=== PATIENT | female | born 1945 | race Caucasian/White ===

== ENCOUNTER 2017-10-05 19:48 | Inpatient (IN) | payer MEDICARE, MEDICAID ==
--- NOTE | 2017-10-05 20:03 | ED Physician Chart ---
ED Chief Complaint/HPI - Patient Information Date Seen:: 10/05/17 Time Seen:: 19:45 Chief Complaint:: Feet Redness History of Present Illness:: onset x 3v days of increasing bilateral feet erythema, swelling, and discharge; no report of trauma, H/As, S/T, neck pain, C/P, SOB, cough, Abd. Pain, A/N/V/d/c , fever, chills, or urinary s/s; pt's last tetanus shot: < 5 years; UTD Historian:: Patient, EMS, Family Member Review:: Nurse's Note Reviewed, EMS run form Reviewed ED Review of Systems - Review of Systems General/Constitutional: No fever, No chills, No weight loss, No weakness, No diaphoresis, No edema, No loss of appetite Skin: Skin lesions, Rash, No bruising Head: No headache, No light-headedness Eyes: No loss of vision, No pain, No diplopia ENT: No earache, No nasal drainage, No sore throat, No tinnitus Neck: No neck pain, No swelling, No thyromegaly, No stiffness, No mass noted Cardio Vascular: No chest pain, No palpitations, No PND, No orthopnea, No edema Pulmonary: No SOB, No cough, No sputum, No wheezing GI: No nausea, No vomiting, No diarrhea, No pain, No melena, No hematochezia, No constipation, No hematemesis G/U: No dysuria, No frequency, No hematuria, No nacturia Forensic Engineer: No vaginal discharge, No abnormal vaginal bleed, No contraction Musculoskeletal: No bone or joint pain, No back pain, No muscle pain Endocrine: Polyuria, Polydipsia Psychiatric: No prior psych history, No depression, No anxiety, No suicidal ideation, No homicidal ideation, No auditory hallucination, No visual hallucination Hematopoietic: No bruising, No lymphadenopathy Allergic/Immuno: No urticaria, No angioedema Neurological: No syncope, No focal symptoms, No weakness, No paresthesia, No headache, No seizure, No dizziness, No confusion, No vertigo ED Past Medical History - Past Medical History Obtainable: Yes Past Medical History: HTN, DM, CAD, Dyslipidemia, ESRD Family History: Diabetes Melitus, HTN Social History: Non Smoker, No Alcohol, No Drug Use, Surgical History: CABG Psychiatricy History: None Medication: Reviewed Family Medical History - Family Member Mother History Unknown: Yes ED Physical Exam - Physical Examination General/Constitutional: Awake, Well-developed, well-nourished, Alert, No distress, GCS 15, Non-toxic appearing, Ambulatory Head: Atraumatic Eyes: Lids, conjuctiva normal, PERRL, EOMI Skin: Nl inspection, No rash, No skin lesions, No ecchymosis, Well hydrated, No lymphadenopathy Other Skin comments:: Bilatera; Feet/Toe Cellulitis with multiple wounds ENMT: External ears, nose nl, TM canals nl, Nasal exam nl, Lips, teeth, gums nl , Oropharynx nl, Tonsils nl Neck: Nontender, Full ROM w/o pain, No JVD, No nuchal rigidity, No bruit, No mass, No stridor Respiratory: Nl effort/Exclusion, Clear to Auscultation, No Wheeze/Rhonchi/Rales Cardio Vascular: RRR, No murmur, gallop, rubs, NL S1 S2 GI: No tenderness/rebounding/guarding, No organomegaly, No hernia, Normal BS's, Nondistended, No mass/bruits, No McBurney tenderness : No CVA tenderness Extremities: No tenderness or effusion, Full ROM, normal strength in all extremities, No edema, Normal digits & nails Neuro/Psych: Alert/oriented, DTR's symmetric, Normal sensory exam, Normal motor strength, Judgement/insight normal, Mood normal, Normal gait, No focal deficits Misc: Normal back, No paraspinal tenderness ED Labs/Radiology/EKG Results - Lab Results Comments:: Glucose: 230; Na+: 132; Cr: 3.0; U/A: + Pyuria - EKG Interpretations EKG Time:: 20:37 Rate & Rhythm: 51; SB Comments:: RBBB; non-specific st-t changes ED Septic Shock - . Is Septic Shock (SBP<90, OR Lactate>4 mmol\L) present?: No ED Reassessment (Disposition) - Reassessment Reassessment Condition:: Improved - Diagnosis Diagnosis:: Dx: ESRD; DM; Hyponatremia; Hyperglycemia; UTI; Sepsis; Feet Wounds and Cellulitis; Anemia - Aftercare/Follow up Instructions Aftercare/Follow-Up Instructions:: Counseled pt regarding lab results/diagnosis & need follow up, Counseled pt & family regarding lab results/diagnosis & need follow up - Patient Disposition Discharge/Transfer:: Acute Care w/in this hosp Accepting Physician:: Dr. Lowery Time Called:: [id number] Time Responded:: 21:30 Admitted to:: Telemetry Spoke to:: Dr. Lowery Admitting Medical Physician:: Dr. lowery Condition at Disposition:: Stable, Improved
[2017-10-05] MEDS ORDERED: cefTRIAXone 1 GM in Sodium Chloride 0.9% 50 ML IV ONE (20:05)
[2017-10-05 20:29] LABS: URINE MICROSCOPIC INDICATED? YES; URINE SOURCE MIDSTREAM
[2017-10-05 20:31] LABS: % BASOPHILS 0.4 % (0.0-2.0); % EOSINOPHILS 3.5 % (0.0-5.0); % LYMPHOCYTES 12.9 % (20.0-50.0); % MONOCYTES 11.8 % (2.0-10.0); % NEUTROPHILS 71.4 % (40.0-80.0); EOSINOPHILE ABSOLUTE 0.2 Th/cmm (0.1-0.4); HEMATOCRIT 32.2 % (41.0-60); HEMOGLOBIN 10.8 gm/dL (12-16); LYMPHOCYTE ABSOLUTE 0.6 Th/cmm (1.5-3.0); MEAN CORPUSCULAR HEMOGLOBIN 35.9 pg (27.0-31.0); MEAN CORPUSCULAR HGB CONC 33.4 pg (28.0-36.0); MEAN PLATELET VOLUME 7.4 fl; MONOCYTE ABSOLUTE 0.5 Th/cmm (0.3-1.0); NEUTROPHILE ABSOLUTE 3.3 Th/cmm (1.8-8.0); PLATELET COUNT 252 Th/cmm (150-400); RED BLOOD COUNT 2.99 Mil/cmm (3.80-5.20); WHITE BLOOD COUNT 4.6 Th/cmm (4.8-10.8)
[2017-10-05 20:43] LABS: INR 0.92 (0.5-1.4); PROTHROMBIN TIME (TEST) 9.6 SECONDS (9.5-11.5)
[2017-10-05 20:47] LABS: URINE BILIRUBIN NEGATIVE (NEGATIVE); URINE BLOOD TRACE (NEGATIVE); URINE GLUCOSE (UA) 100 mg/dL (NEGATIVE); URINE KETONE TRACE mg/dL (NEGATIVE); URINE LEUKOCYTE ESTERASE TRACE (NEGATIVE); URINE NITRATE NEGATIVE (NEGATIVE); URINE PH 8.5 (4.6 - 8.0); URINE PROTEIN 100 mg/dL (NEGATIVE); URINE UROBILINOGEN 0.2 E.U./dL (0.2 - 1.0)
[2017-10-05 20:48] LABS: URINE CLARITY CLEAR (CLEAR); URINE COLOR YELLOW
[2017-10-05 20:49] LABS: TROP I 0.04 ng/mL (0.01-0.05)
[2017-10-05 20:51] LABS: ALB/GLOB RATIO 1.3 (1.0-1.8); ALBUMIN 3.8 gm/dL (3.7-5.3); ALKALINE PHOSPHATASE 57 U/L (34-104); ANION GAP 10.4 (7.0-16.0); BILIRUBIN,TOTAL 0.6 mg/dL (0.3-1.0); BUN - UREA NITROGEN 17 mg/dL (7-25); CALCIUM SERUM 8.8 mg/dL (8.6-10.3); CARBON DIOXIDE 31.5 mEq/L (21.0-31.0); CHLORIDE 94 mEq/L (98-107); CREATININE KINASE 51 U/L (30-223); GLUCOSE 230 mg/dL (70-105); POTASSIUM SERUM 3.9 mEq/L (3.5-5.1); SGOT 24 U/L (13-39); SGPT/ALT 17 U/L (7-52); SODIUM SERUM 132 mEq/L (136-145); TOTAL PROTEIN,SERUM 6.8 gm/dL (6.0-8.3)
[2017-10-05 20:53] LABS: URINE BACTERIA NONE SEEN /hpf (NONE SEEN); URINE EPITHELIAL CELLS NONE SEEN /lpf (FEW); URINE RBC 0-2 /hpf (0-5)
[2017-10-05 21:13] LABS: MEAN CELL VOLUME 107.6 fl (81-100)
[2017-10-05] MEDS ORDERED: guaiFENesin 200 MG/10 ML UDC PO PRN (21:43)
[2017-10-05] MEDS ORDERED: Ipratropium Neb 0.5 mg/2.5 mL UD HHN PRN (21:43)
[2017-10-05] MEDS ORDERED: Albuterol Nebulizer 2.5mg/3mL HHN PRN (21:43)
[2017-10-06] MEDS ORDERED: Piperacillin Sodium/Tazobact 2.25 gm Vial IV ONE (05:10)
[2017-10-06 05:52] LABS: HEMATOCRIT 30.5 % (41.0-60); HEMOGLOBIN 10.1 gm/dL (12-16); MEAN CORPUSCULAR HEMOGLOBIN 35.3 pg (27.0-31.0); MEAN CORPUSCULAR HGB CONC 32.9 pg (28.0-36.0); MEAN PLATELET VOLUME 7.3 fl; PLATELET COUNT 231 Th/cmm (150-400); RED BLOOD COUNT 2.85 Mil/cmm (3.80-5.20); RED CELL DISTRIBUTION WIDTH 14.7 % (11.5-20.0); WHITE BLOOD COUNT 4.3 Th/cmm (4.8-10.8)
[2017-10-06 05:53] LABS: MANUAL DIFF REQUIRED? YES
[2017-10-06 06:23] LABS: MEAN CELL VOLUME 107.1 fl (81-100)
[2017-10-06] MEDS ORDERED: INSULIN ASPART, RECOMBINANT 100 UNITS/ML SUBQ SCH (07:30)
--- NOTE | 2017-10-06 07:51 | Diagnostic Imaging Report ---
Portable chest x-ray HISTORY: Pain The heart is enlarged. No focal pulmonary processes. Surgical suture material noted over the mid chest. IMPRESSION: 1. No acute focal pulmonary processes 2. Cardiomegaly 3. Surgical changes
[2017-10-06] MEDS ORDERED: Non-Formulary Item 1 EA (Metoprolol Succinate [Metoprolol Succinate] 25 MG) PO SCH (09:00)
[2017-10-06 09:49] LABS: TOTAL CELLS COUNTED 100
[2017-10-06 09:50] LABS: BAND NEUTROPHILE 14 % (0-10); EOSINOPHIL 1 % (0-5); LYMPHOCYTE 17 % (20-50); MONOCYTE 8 % (2-10); NEUTROPHILS 60 % (40-80); PLATELET ESTIMATE ADEQUATE (NORMAL)
[2017-10-06] MEDS: INSULIN ASPART SLIDING SCALE 100 UNITS/ML UNIT SUBQ SCH ×4 (12:23→22:18)
[2017-10-06] MEDS: Insulin Detemir 100 units/mL 10mL Vial SUBQ SCH (12:24)
--- NOTE | 2017-10-06 13:30 | Internal Medicine Prog Note ---
Internal Medicine Subjective - Subjective Service Date: 10/06/17 ([id number] [facility] dictated) Internal Medicine Objective - Results Result Diagrams: 10/06/17 05:39 10/05/17 20:20 Recent Labs: Laboratory Last Values WBC 4.3 Th/cmm (4.8-10.8) L 10/06/17 05:39 RBC 2.85 Mil/cmm (3.80-5.20) L 10/06/17 05:39 Hgb 10.1 gm/dL (12-16) L 10/06/17 05:39 Hct 30.5 % (41.0-60) L 10/06/17 05:39 MCV 107.1 fl (81-100) H 10/06/17 05:39 MCH 35.3 pg (27.0-31.0) H 10/06/17 05:39 MCHC Differential 32.9 pg (28.0-36.0) 10/06/17 05:39 RDW 14.7 % (11.5-20.0) 10/06/17 05:39 Plt Count 231 Th/cmm (150-400) 10/06/17 05:39 MPV 7.3 fl 10/06/17 05:39 Neutrophils % 71.4 % (40.0-80.0) 10/05/17 20:20 Band Neutrophils % 14 % (0-10) H 10/06/17 05:39 Lymphocytes % 12.9 % (20.0-50.0) L 10/05/17 20:20 Monocytes % 11.8 % (2.0-10.0) H 10/05/17 20:20 Eosinophils % 3.5 % (0.0-5.0) 10/05/17 20:20 Basophils % 0.4 % (0.0-2.0) 10/05/17 20:20 Neutrophils (Manual) 60 % (40-80) 10/06/17 05:39 Lymphocytes 17 % (20-50) L 10/06/17 05:39 Monocytes 8 % (2-10) 10/06/17 05:39 Eosinophils 1 % (0-5) 10/06/17 05:39 Platelet Estimate ADEQUATE (NORMAL) 10/06/17 05:39 Macrocytosis 1+ 10/06/17 05:39 ESR 49 mm/hr (0-30) H 10/06/17 05:39 PT 9.6 SECONDS (9.5-11.5) 10/05/17 20:20 INR 0.92 (0.5-1.4) 10/05/17 20:20 PTT (Actin FS) 22.5 SECONDS (26.0-38.0) L 10/05/17 20:20 Sodium 132 mEq/L (136-145) L 10/05/17 20:20 Potassium 3.9 mEq/L (3.5-5.1) 10/05/17 20:20 Chloride 94 mEq/L (98-107) L 10/05/17 20:20 Carbon Dioxide 31.5 mEq/L (21.0-31.0) H 10/05/17 20:20 Anion Gap 10.4 (7.0-16.0) 10/05/17 20:20 BUN 17 mg/dL (7-25) 10/05/17 20:20 Creatinine 3.0 mg/dL (0.6-1.2) H 10/05/17 20:20 Est GFR ( Amer) TNP 10/05/17 20:20 Est GFR (Non-Af Amer) TNP 10/05/17 20:20 BUN/Creatinine Ratio 5.7 10/05/17 20:20 Glucose 230 mg/dL (70-105) H 10/05/17 20:20 POC Glucose 202 MG/DL (70 - 105) H 10/06/17 12:05 Whole Bld Lactic Acid 0.85 mmol/L (0.60-1.99) 10/05/17 20:20 Calcium 8.8 mg/dL (8.6-10.3) 10/05/17 20:20 Total Bilirubin 0.6 mg/dL (0.3-1.0) 10/05/17 20:20 AST 24 U/L (13-39) 10/05/17 20:20 ALT 17 U/L (7-52) 10/05/17 20:20 Alkaline Phosphatase 57 U/L (34-104) 10/05/17 20:20 Creatine Kinase 51 U/L (30-223) 10/05/17 20:20 Troponin I 0.04 ng/mL (0.01-0.05) 10/05/17 20:20 Total Protein 6.8 gm/dL (6.0-8.3) 10/05/17 20:20 Albumin 3.8 gm/dL (3.7-5.3) 10/05/17 20:20 Globulin 3.0 gm/dL 10/05/17 20:20 Albumin/Globulin Ratio 1.3 (1.0-1.8) 10/05/17 20:20 Urine Source MIDSTREAM 10/05/17 20:20 Urine Color YELLOW 10/05/17 20:20 Urine Clarity CLEAR (CLEAR) 10/05/17 20:20 Urine pH 8.5 (4.6 - 8.0) 10/05/17 20:20 Ur Specific [place] 1.015 (1.005-1.030) 10/05/17 20:20 Urine Protein 100 mg/dL (NEGATIVE) H 10/05/17 20:20 Urine Glucose (UA) 100 mg/dL (NEGATIVE) H 10/05/17 20:20 Urine Ketones TRACE mg/dL (NEGATIVE) 10/05/17 20:20 Urine Blood TRACE (NEGATIVE) 10/05/17 20:20 Urine Nitrate NEGATIVE (NEGATIVE) 10/05/17 20:20 Urine Bilirubin NEGATIVE (NEGATIVE) 10/05/17 20:20 Urine Urobilinogen 0.2 E.U./dL (0.2 - 1.0) 10/05/17 20:20 Ur Leukocyte Esterase TRACE (NEGATIVE) H 10/05/17 20:20 Urine RBC 0-2 /hpf (0-5) 10/05/17 20:20 Urine WBC 2-5 /hpf (0-5) 10/05/17 20:20 Ur Epithelial Cells NONE SEEN /lpf (FEW) 10/05/17 20:20 Urine Bacteria NONE SEEN /hpf (NONE SEEN) 10/05/17 20:20 - Physical Exam Vitals and I&O: Vital Signs Temp 97.5 F 10/06/17 12:12 Pulse 76 10/06/17 12:12 Resp 17 10/06/17 12:12 BP 161/57 10/06/17 12:12 Pulse Ox 97 10/06/17 12:12 Intake & Output 10/05/17 10/06/17 10/06/17 18:59 06:59 18:59 Intake Total 50 Balance 50 Intake: Intake, IV Amount 50 Piperacillin Sodium/ 50 Tazobact 2.25 gm In Sodium Chloride 0.9% 50 ml @ 100 mls/hr IV Q8HR [facility] Rx#:[id number] Active Medications: Current Medications Acetaminophen (Tylenol) 650 mg PO Q4H PRN PRN Reason: Pain Or Fever above 101 Stop: 12/04/17 21:42 Acetaminophen/Hydrocodone Bitart ([place] 5mg/325mg) 1 tab PO Q4H PRN PRN Reason: Pain (Severe) Stop: 12/04/17 21:42 Albuterol Sulfate (Albuterol 2.5mg/3ml Neb Ud) 2.5 mg HHN Q2HRT PRN PRN Reason: Shortness of Breath or Wheeze Stop: 12/04/17 21:42 Amiodarone HCl (Cordarone) 200 mg PO DAILY [facility] Stop: 12/05/17 08:59 Last Admin: 10/06/17 09:05 Dose: 200 mg Aspirin (Ecotrin) 81 mg PO DAILY [facility] Stop: 12/05/17 08:59 Last Admin: 10/06/17 09:05 Dose: 81 mg Bisacodyl (Dulcolax 10 Mg Supp) 10 mg RC DAILY PRN PRN Reason: Constipation Stop: 12/05/17 13:03 Clopidogrel Bisulfate (Plavix) 75 mg PO DAILY [facility] Stop: 12/05/17 08:59 Last Admin: 10/06/17 09:05 Dose: 75 mg Docusate Sodium (Colace) 250 mg PO BID [facility] Stop: 12/05/17 16:59 Guaifenesin (Robitussin) 200 mg PO Q4HR PRN PRN Reason: Cough or Congestion Stop: 12/04/17 21:42 Piperacillin Sod/Tazobactam (Sod 2.25 gm/ Sodium Chloride) 50 mls @ 100 mls/hr IV Q8HR [facility] Stop: 12/05/17 04:59 Last Admin: 10/06/17 12:47 Dose: 100 mls/hr Insulin Aspart (Novolog Insulin Sliding Scale) 0 units SUBQ ACHS [facility] PRN Reason: Protocol Stop: 12/05/17 07:29 Last Admin: 10/06/17 12:24 Dose: 4 units Insulin Detemir (Levemir Insulin) 8 units SUBQ DAILY [facility] PRN Reason: Protocol Stop: 12/05/17 08:59 Last Admin: 10/06/17 12:24 Dose: 8 units Ipratropium Moore (Atrovent Neb 0.5mg/2.5ml) 0.5 mg HHN Q2HRT PRN PRN Reason: Shortness of Breath or Wheeze Stop: 12/04/17 21:42 Metoprolol Tartrate (Lopressor) 25 mg PO BID KHANG Stop: 12/05/17 08:59 Last Admin: 10/06/17 09:05 Dose: 25 mg Nitroglycerin (Nitrostat) 0.4 mg SL Q5MIN PRN PRN Reason: Chest Pain Stop: 12/04/17 21:42 Ondansetron HCl (Zofran) 4 mg IV Q8H PRN PRN Reason: Nausea / Vomiting Stop: 12/04/17 21:42 Zolpidem Tartrate (Ambien) 5 mg PO HS PRN PRN Reason: Insomnia Stop: 12/04/17 21:42 Last Admin: 10/06/17 03:25 Dose: 5 mg Internal Medicine Assmt/Plan - Assessment Assessment: bilateral lower ext cellulitis htn esrd dm2
--- NOTE | 2017-10-06 13:46 | History & Physical ---
ADMIT DATE: 10/06/2017 CHIEF COMPLAINT: Bilateral foot redness. HISTORY OF PRESENT ILLNESS: This is a 71-year-old female who has a 3-day history of bilateral feet redness associated with swelling. The patient denies any fevers at home. The patient also complains of pain in bilateral feet. For this reason, the patient was brought to the ER. PAST MEDICAL HISTORY: Hypertension, diabetes, CAD, dyslipidemia, ESRD. FAMILY HISTORY: Noncontributory. SOCIAL HISTORY: The patient denies any alcohol or illicit drug usage. SURGICAL HISTORY: CABG. MEDICATIONS: Please see medication reconciliation. REVIEW OF SYSTEMS: GENERAL: Denies any fevers and chills. CARDIOVASCULAR: Denies chest pain. RESPIRATORY: Denies shortness of breath. GASTROINTESTINAL: Denies nausea, vomiting, abdominal pain. GENITOURINARY: Denies increased frequency or dysuria. NEUROLOGIC: The patient is alert. All other systems are reviewed and are negative. PHYSICAL EXAMINATION: GENERAL: The patient is well-developed, well-nourished, no acute distress. VITAL SIGNS: Temperature 97.5, heart 76, blood pressure 161/57, respirations 17, O2 97%. HEENT: Head; normocephalic, atraumatic. NECK: Supple. No mass. LUNGS: Clear bilaterally. HEART: Regular rhythm. ABDOMEN: Soft, nontender. SKIN: Bilateral lower extremity noted with redness. LABORATORY DATA: WBC 4.3, H and H of and 30.5, platelet of 231. Sodium 132, potassium 3.9, chloride 94, BUN 17, creatinine 3.0. DIAGNOSTICS: The patient had a chest x-ray done and the impression is no acute focal pulmonary process cardiomegaly. ASSESSMENT: Bilateral lower extremity cellulitis, hypertension, type 2 diabetes, CAD, dyslipidemia, end-stage renal disease. PLAN: The patient to be admitted to the telemetry unit. We will get a wrapping machine operator on the case as well as his wound care. We will get a bilateral lower extremity arterial Doppler. We will get followup labs. Keep patient on empiric IV antibiotics. We will continue to follow this patient. JOB# [id number]
[2017-10-06 14:23] LABS: A1C % 8.6 % (4.0-6.0)
[2017-10-07] MEDS ORDERED: Albumin 25% 25gm/100mL 25 GM/100 ML BTL IV ONE
[2017-10-07] MEDS: Heparin Sod 1,000 Units/mL 10ml HD SCH ×2 (00:55→08:22)
[2017-10-07 06:17] LABS: ANION GAP 14.4 (7.0-16.0); BUN - UREA NITROGEN 36 mg/dL (7-25); CALCIUM SERUM 8.2 mg/dL (8.6-10.3); CARBON DIOXIDE 24.7 mEq/L (21.0-31.0); CHLORIDE 98 mEq/L (98-107); GLUCOSE 108 mg/dL (70-105); MAGNESIUM 2.6 mg/dL (1.9-2.7); POTASSIUM SERUM 4.1 mEq/L (3.5-5.1); SODIUM SERUM 133 mEq/L (136-145)
[2017-10-07 06:30] LABS: CREATININE - SERUM 4.8 mg/dL (0.6-1.2)
[2017-10-07] MEDS: INSULIN ASPART SLIDING SCALE 100 UNITS/ML UNIT SUBQ SCH ×4 (07:04→21:15)
[2017-10-07 07:50] LABS: % BASOPHILS 0.6 % (0.0-2.0); % EOSINOPHILS 4.6 % (0.0-5.0); % LYMPHOCYTES 14.5 % (20.0-50.0); % NEUTROPHILS 68.3 % (40.0-80.0); EOSINOPHILE ABSOLUTE 0.2 Th/cmm (0.1-0.4); HEMATOCRIT 30.7 % (41.0-60); HEMOGLOBIN 10.2 gm/dL (12-16); LYMPHOCYTE ABSOLUTE 0.7 Th/cmm (1.5-3.0); MEAN CORPUSCULAR HEMOGLOBIN 35.7 pg (27.0-31.0); MEAN CORPUSCULAR HGB CONC 33.2 pg (28.0-36.0); MEAN PLATELET VOLUME 7.3 fl; MONOCYTE ABSOLUTE 0.6 Th/cmm (0.3-1.0); NEUTROPHILE ABSOLUTE 3.1 Th/cmm (1.8-8.0); PLATELET COUNT 271 Th/cmm (150-400); RED BLOOD COUNT 2.86 Mil/cmm (3.80-5.20); RED CELL DISTRIBUTION WIDTH 14.4 % (11.5-20.0); WHITE BLOOD COUNT 4.6 Th/cmm (4.8-10.8)
[2017-10-07] MEDS: Insulin Detemir 100 units/mL 10mL Vial SUBQ SCH (08:30)
--- NOTE | 2017-10-07 08:42 | Diagnostic Imaging Report ---
Bilateral lower extremity Doppler arterial ultrasound exam HISTORY: Peripheral vascular disease, pain Sonographic sector images were obtained through the arterial systems of both legs. Associated Doppler data was obtained. The exam of the right leg demonstrates triphasic waveforms within the common femoral artery. Biphasic waveforms are noted within the proximal portion of the right superficial femoral artery. Triphasic waveforms are noted in the midportion of this artery. Abnormal monophasic waveforms are seen in the distal portion of the superficial femoral artery. Increased velocity also noted within the distal segment. Abnormal monophasic waveforms are also noted within the right popliteal, anterior tibial, posterior tibial, dorsalis pedis arteries. Decreased velocity noted within the right posterior tibial artery. Sonographic images demonstrate mild to severe diffuse atherosclerotic changes. No discrete occlusion. The right ankle-brachial index is normal (0.9). The exam of the left leg demonstrates triphasic waveforms within the common femoral artery. Biphasic waveforms are noted to the superficial femoral artery. Abnormal monophasic waveforms are noted with the left popliteal, anterior tibial, posterior tibial, and dorsalis pedis arteries. Abnormal decrease in velocity noted with the left posterior tibial artery. Increased velocity noted within the left anterior tibial artery. Sonographic images demonstrate moderate to severe diffuse atherosclerotic changes. No complete occlusion identified. Abnormal decreased ankle brachial index (0.78). IMPRESSION: 1. Evidence of moderate to severe diffuse atherosclerotic changes within the left leg most pronounced below the knee. No jackie occlusion. 2. Evidence of mild to severe diffuse atherosclerotic changes throughout the right leg. No jackie occlusion. If needed, a CT angiographic study may provide additional detail.
--- NOTE | 2017-10-07 09:41 | Consultation ---
DATE OF CONSULTATION: 10/06/2017 REASON FOR CONSULTATION: Electrolyte imbalance and fluid management. HISTORY OF PRESENT ILLNESS: This is a 71-year-old female with past medical history of end-stage renal disease, on hemodialysis, who came in because of the progressive erythema/pain involving bilateral toes. Three months prior to admission, the patient experienced pain in both bilateral toes. She then developed erythema which eventually spread to toes of both feet. Three days prior to admission, she noted pain to be more pronounced and persistent accompanied by a burning sensation. A few hours prior to admission, she could no longer tolerate the pain and then proceeded to the Emergency Room. White count was 4.6, ESR of 49 negative. PAST MEDICAL HISTORY: 1. End-stage renal disease, on hemodialysis. 2. Coronary artery disease. 3. Type 2 diabetes mellitus. 4. Essential hypertension. 5. Dyslipidemia. PAST SURGICAL HISTORY: 1. Status post CABG involving 4 vessels in 2014. 2. Status post creation of left AV fistula. CURRENT MEDICATIONS: She is currently on acetaminophen, albuterol, amiodarone, aspirin, bisacodyl, ceftriaxone, clonidine, clopidogrel, docusate sodium, aspart, detemir, ipratropium, metoprolol, ondansetron, zolpidem, Zosyn. ALLERGIES: No known drug allergies. SOCIAL HISTORY: Denied any history of alcohol or tobacco use. 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 FAMILY HISTORY: Presence of diabetes in one of her brothers. REVIEW OF SYSTEMS: She does have occasional weakness. No fever, no chills. Appetite had been fair. HEENT: No mention of headaches, no dizziness. Wears glasses due to poor vision. Hearing acuity has diminished due to age. CARDIORESPIRATORY: Denies any chest pain, palpitations, diaphoresis, cough, no shortness of breath. She does have a history of coronary artery disease. MUSCULOSKELETAL: Multiple joint arthralgias. GENITOURINARY: History of kidney failure, now on hemodialysis for several years. HEMATOLOGIC: Anemia of chronic kidney disease. NEUROPSYCH: No syncopal episode nor seizure activity. She has taking sensation suggestive of some form of neuropathy. PHYSICAL EXAMINATION: GENERAL: The patient is awake, verbal, in distress due to pain involving toes of both feet. HEENT: Head normocephalic, atraumatic. EYES: Extraocular muscles intact. Pupils equal, round, reactive to light and accommodates. Anicteric sclerae. Pale conjunctivae. Nose, midline nasal septum. Mouth: Dry mucosa, adequate dentition. NECK: Supple, no adenopathy, no thyromegaly, no bruits. Trachea palpated in the midline. CHEST AND CVS: S1, S2. No rub, murmur nor gallop appreciated. Point of maximal impulse fifth intercostal space, left midclavicular line. No abdominal or femoral bruits appreciated. LUNGS: Equal expansion. No use of accessory muscles. No supraclavicular retractions. Decreased breath sounds, few rhonchi, but no rales nor wheezes appreciated. BREASTS: Symmetrical, without any discharge. ABDOMEN: Mildly globular, soft. Positive for bowel sounds. No bruits either diastolic or systolic. RECTAL: The patient refused. GENITOURINARY: Normal appearing female genitalia. MUSCULOSKELETAL: No effusions present in her joints, but unable to assess her range of motion due to pain of toes involving both feet. EXTREMITIES: She has a palpable femoral, but unable to fully appreciate popliteal as well as dorsalis pedis pulses. NEUROLOGIC: The patient is alert, verbal, motor is 5/5. Cranial nerves 3-12 intact. Sensory intact. LABORATORY DATA: Revealed white count 4.3, hemoglobin 10.1, hematocrit 30.5, platelets 231, sodium 132, potassium 3.9, chloride 9 , bicarbonate 31, BUN 17, creatinine is 3, glucose 230, hemoglobin A1c 8.6, calcium 8.8, albumin 3.8. IMPRESSION: 1. End-stage renal disease, on hemodialysis. 2. Bilateral ischemic toes with ongoing cellulitis. 3. Coronary artery disease, status post CABG. 4. Type 2 diabetes mellitus. 5. Essential hypertension. 6. Dyslipidemia. PLAN: 1. Hemodialysis in a.m. 2. Continue on with Rocephin for now. 3. Follow up arterial duplex scan. 4. Vancomycin x1. Thank you, Dr. Lowery, for this consult. We will follow the patient closely with you. JOB# [id number]
--- NOTE | 2017-10-07 13:30 | General Progress Note ---
Subjective - Review of Systems Service Date: 10/07/17 Subjective: alert, less foot pain Objective - Results Result Diagrams: 10/07/17 07:37 10/07/17 05:51 Recent Labs: Laboratory Last Values WBC 4.6 Th/cmm (4.8-10.8) L 10/07/17 07:37 RBC 2.86 Mil/cmm (3.80-5.20) L 10/07/17 07:37 Hgb 10.2 gm/dL (12-16) L 10/07/17 07:37 Hct 30.7 % (41.0-60) L 10/07/17 07:37 MCV 107.1 fl (81-100) H 10/06/17 05:39 MCH 35.7 pg (27.0-31.0) H 10/07/17 07:37 MCHC Differential 33.2 pg (28.0-36.0) 10/07/17 07:37 RDW 14.4 % (11.5-20.0) 10/07/17 07:37 Plt Count 271 Th/cmm (150-400) 10/07/17 07:37 MPV 7.3 fl 10/07/17 07:37 Neutrophils % 68.3 % (40.0-80.0) 10/07/17 07:37 Band Neutrophils % 14 % (0-10) H 10/06/17 05:39 Lymphocytes % 14.5 % (20.0-50.0) L 10/07/17 07:37 Monocytes % 12.0 % (2.0-10.0) H 10/07/17 07:37 Eosinophils % 4.6 % (0.0-5.0) 10/07/17 07:37 Basophils % 0.6 % (0.0-2.0) 10/07/17 07:37 Neutrophils (Manual) 60 % (40-80) 10/06/17 05:39 Lymphocytes 17 % (20-50) L 10/06/17 05:39 Monocytes 8 % (2-10) 10/06/17 05:39 Eosinophils 1 % (0-5) 10/06/17 05:39 Platelet Estimate ADEQUATE (NORMAL) 10/06/17 05:39 Macrocytosis 1+ 10/06/17 05:39 ESR 49 mm/hr (0-30) H 10/06/17 05:39 PT 9.6 SECONDS (9.5-11.5) 10/05/17 20:20 INR 0.92 (0.5-1.4) 10/05/17 20:20 PTT (Actin FS) 22.5 SECONDS (26.0-38.0) L 10/05/17 20:20 Sodium 133 mEq/L (136-145) L 10/07/17 05:51 Potassium 4.1 mEq/L (3.5-5.1) 10/07/17 05:51 Chloride 98 mEq/L (98-107) 10/07/17 05:51 Carbon Dioxide 24.7 mEq/L (21.0-31.0) 10/07/17 05:51 Anion Gap 14.4 (7.0-16.0) 10/07/17 05:51 BUN 36 mg/dL (7-25) H 10/07/17 05:51 Creatinine 4.8 mg/dL (0.6-1.2) H* 10/07/17 05:51 Est GFR ( Amer) TNP 10/07/17 05:51 Est GFR (Non-Af Amer) TNP 10/07/17 05:51 BUN/Creatinine Ratio 7.5 10/07/17 05:51 Glucose 108 mg/dL (70-105) H 10/07/17 05:51 POC Glucose 97 MG/DL (70 - 105) 10/07/17 07:01 Hemoglobin A1c % 8.6 % (4.0-6.0) H 10/05/17 20:20 Whole Bld Lactic Acid 0.85 mmol/L (0.60-1.99) 10/05/17 20:20 Calcium 8.2 mg/dL (8.6-10.3) L 10/07/17 05:51 Magnesium 2.6 mg/dL (1.9-2.7) 10/07/17 05:51 Total Bilirubin 0.6 mg/dL (0.3-1.0) 10/05/17 20:20 AST 24 U/L (13-39) 10/05/17 20:20 ALT 17 U/L (7-52) 10/05/17 20:20 Alkaline Phosphatase 57 U/L (34-104) 10/05/17 20:20 Creatine Kinase 51 U/L (30-223) 10/05/17 20:20 Troponin I 0.04 ng/mL (0.01-0.05) 10/05/17 20:20 B-Natriuretic Peptide 733.0 pg/mL (5.0-100.0) H 10/07/17 05:51 Total Protein 6.8 gm/dL (6.0-8.3) 10/05/17 20:20 Albumin 3.8 gm/dL (3.7-5.3) 10/05/17 20:20 Globulin 3.0 gm/dL 10/05/17 20:20 Albumin/Globulin Ratio 1.3 (1.0-1.8) 10/05/17 20:20 TSH 1.32 uIU/ml (0.34-5.60) 10/06/17 05:39 Urine Source MIDSTREAM 10/05/17 20:20 Urine Color YELLOW 10/05/17 20:20 Urine Clarity CLEAR (CLEAR) 10/05/17 20:20 Urine pH 8.5 (4.6 - 8.0) 10/05/17 20:20 Ur Specific [place] 1.015 (1.005-1.030) 10/05/17 20:20 Urine Protein 100 mg/dL (NEGATIVE) H 10/05/17 20:20 Urine Glucose (UA) 100 mg/dL (NEGATIVE) H 10/05/17 20:20 Urine Ketones TRACE mg/dL (NEGATIVE) 10/05/17 20:20 Urine Blood TRACE (NEGATIVE) 10/05/17 20:20 Urine Nitrate NEGATIVE (NEGATIVE) 10/05/17 20:20 Urine Bilirubin NEGATIVE (NEGATIVE) 10/05/17 20:20 Urine Urobilinogen 0.2 E.U./dL (0.2 - 1.0) 10/05/17 20:20 Ur Leukocyte Esterase TRACE (NEGATIVE) H 10/05/17 20:20 Urine RBC 0-2 /hpf (0-5) 10/05/17 20:20 Urine WBC 2-5 /hpf (0-5) 10/05/17 20:20 Ur Epithelial Cells NONE SEEN /lpf (FEW) 10/05/17 20:20 Urine Bacteria NONE SEEN /hpf (NONE SEEN) 10/05/17 20:20 - Physical Exam Vitals and I&O: Vital Signs Temp 97.6 F 10/07/17 09:05 Pulse 47 10/07/17 09:05 Resp 17 10/07/17 09:05 BP 164/60 10/07/17 09:05 Pulse Ox 98 10/07/17 09:05 Intake & Output 10/06/17 10/07/17 10/07/17 18:59 06:59 18:59 Intake Total 50 400 Balance 50 400 Weight (lbs) 76.657 kg Intake: Intake, IV Amount 50 200 Piperacillin Sodium/ 50 100 Tazobact 2.25 gm In Sodium Chloride 0.9% 50 ml @ 100 mls/hr IV Q8HR [facility] Rx#:[id number] Oral 200 Other: # Voids 2 # Bowel Movements 2 Stool Characteristics Soft Soft Active Medications: Current Medications Acetaminophen (Tylenol) 650 mg PO Q4H PRN PRN Reason: Pain Or Fever above 101 Stop: 12/04/17 21:42 Acetaminophen/Hydrocodone Bitart ([place] 5mg/325mg) 1 tab PO Q4H PRN PRN Reason: Pain (Severe) Stop: 12/04/17 21:42 Albuterol Sulfate (Albuterol 2.5mg/3ml Neb Ud) 2.5 mg HHN Q2HRT PRN PRN Reason: Shortness of Breath or Wheeze Stop: 12/04/17 21:42 Amiodarone HCl (Cordarone) 200 mg PO DAILY [facility] Stop: 12/05/17 08:59 Last Admin: 10/07/17 08:30 Dose: 200 mg Aspirin (Ecotrin) 81 mg PO DAILY [facility] Stop: 12/05/17 08:59 Last Admin: 10/07/17 08:30 Dose: 81 mg Bisacodyl (Dulcolax 10 Mg Supp) 10 mg RC DAILY PRN PRN Reason: Constipation Stop: 12/05/17 13:03 Bisacodyl (Dulcolax 5 Mg Ec Tab) 10 mg PO PRN PRN PRN Reason: Constipation Stop: 12/05/17 14:57 Clopidogrel Bisulfate (Plavix) 75 mg PO DAILY [facility] Stop: 12/05/17 08:59 Last Admin: 10/07/17 08:30 Dose: 75 mg Docusate Sodium (Colace) 250 mg PO BID [facility] Stop: 12/05/17 16:59 Last Admin: 10/07/17 08:30 Dose: 250 mg Guaifenesin (Robitussin) 200 mg PO Q4HR PRN PRN Reason: Cough or Congestion Stop: 12/04/17 21:42 Heparin Sodium (Porcine) (Heparin Sodium) 0 units HD UD [facility] Stop: 10/08/17 00:00 Last Admin: 10/07/17 08:22 Dose: Not Given Piperacillin Sod/Tazobactam (Sod 2.25 gm/ Sodium Chloride) 50 mls @ 100 mls/hr IV Q8HR [facility] Stop: 12/05/17 04:59 Last Admin: 10/07/17 12:18 Dose: 100 mls/hr Insulin Aspart (Novolog Insulin Sliding Scale) 0 units SUBQ ACHS [facility] PRN Reason: Protocol Stop: 12/05/17 07:29 Last Admin: 10/07/17 11:54 Dose: 2 units Insulin Detemir (Levemir Insulin) 8 units SUBQ DAILY [facility] PRN Reason: Protocol Stop: 12/05/17 08:59 Last Admin: 10/07/17 08:30 Dose: 8 units Ipratropium [place] (Atrovent Neb 0.5mg/2.5ml) 0.5 mg HHN Q2HRT PRN PRN Reason: Shortness of Breath or Wheeze Stop: 12/04/17 21:42 Metoprolol Tartrate (Lopressor) 25 mg PO BID [facility] Stop: 12/05/17 08:59 Last Admin: 10/07/17 08:31 Dose: 25 mg Nitroglycerin (Nitrostat) 0.4 mg SL Q5MIN PRN PRN Reason: Chest Pain Stop: 12/04/17 21:42 Ondansetron HCl (Zofran) 4 mg IV Q8H PRN PRN Reason: Nausea / Vomiting Stop: 12/04/17 21:42 Zolpidem Tartrate (Ambien) 5 mg PO HS PRN PRN Reason: Insomnia Stop: 12/04/17 21:42 Last Admin: 10/06/17 03:25 Dose: 5 mg General: Alert, Mild distress HEENT: Atraumatic, PERRLA, EOMI, Mucous membr. moist/pink Neck: Supple, +2 carotid pulse wo bruit Cardiovascular: Regular rate, Normal S1, Normal S2 Lungs: Clear to auscultation Abdomen: Bowel sounds, Soft Extremities: Tender (erythema, tender , warm), Other, no Edema Neurological: Sensation intact Skin: no Rash Psych/Mental Status: Mood NL Assessment/Plan - Assessment Assessment: ESRD On HD B/L Ischemic Toes w/ Cellulitis CAD S/P CABG Type 2 DM Ess Htn Dyslipidemia Severe PAD - Plan Plan: Lab - Result Diagrams 10/07/17 07:37 10/07/17 05:51 Current Medications Acetaminophen (Tylenol) 650 mg PO Q4H PRN PRN Reason: Pain Or Fever above 101 Stop: 12/04/17 21:42 Acetaminophen/Hydrocodone Bitart ([place] 5mg/325mg) 1 tab PO Q4H PRN PRN Reason: Pain (Severe) Stop: 12/04/17 21:42 Albuterol Sulfate (Albuterol 2.5mg/3ml Neb Ud) 2.5 mg HHN Q2HRT PRN PRN Reason: Shortness of Breath or Wheeze Stop: 12/04/17 21:42 Amiodarone HCl (Cordarone) 200 mg PO DAILY [facility] Stop: 12/05/17 08:59 Last Admin: 10/07/17 08:30 Dose: 200 mg Aspirin (Ecotrin) 81 mg PO DAILY [facility] Stop: 12/05/17 08:59 Last Admin: 10/07/17 08:30 Dose: 81 mg Bisacodyl (Dulcolax 10 Mg Supp) 10 mg RC DAILY PRN PRN Reason: Constipation Stop: 12/05/17 13:03 Bisacodyl (Dulcolax 5 Mg Ec Tab) 10 mg PO PRN PRN PRN Reason: Constipation Stop: 12/05/17 14:57 Clopidogrel Bisulfate (Plavix) 75 mg PO DAILY [facility] Stop: 12/05/17 08:59 Last Admin: 10/07/17 08:30 Dose: 75 mg Docusate Sodium (Colace) 250 mg PO BID [facility] Stop: 12/05/17 16:59 Last Admin: 10/07/17 08:30 Dose: 250 mg Guaifenesin (Robitussin) 200 mg PO Q4HR PRN PRN Reason: Cough or Congestion Stop: 12/04/17 21:42 Heparin Sodium (Porcine) (Heparin Sodium) 0 units HD UD [facility] Stop: 10/08/17 00:00 Last Admin: 10/07/17 08:22 Dose: Not Given Piperacillin Sod/Tazobactam (Sod 2.25 gm/ Sodium Chloride) 50 mls @ 100 mls/hr IV Q8HR [facility] Stop: 12/05/17 04:59 Last Admin: 10/07/17 12:18 Dose: 100 mls/hr Insulin Aspart (Novolog Insulin Sliding Scale) 0 units SUBQ ACHS [facility] PRN Reason: Protocol Stop: 12/05/17 07:29 Last Admin: 10/07/17 11:54 Dose: 2 units Insulin Detemir (Levemir Insulin) 8 units SUBQ DAILY [facility] PRN Reason: Protocol Stop: 12/05/17 08:59 Last Admin: 10/07/17 08:30 Dose: 8 units Ipratropium [place] (Atrovent Neb 0.5mg/2.5ml) 0.5 mg HHN Q2HRT PRN PRN Reason: Shortness of Breath or Wheeze Stop: 12/04/17 21:42 Metoprolol Tartrate (Lopressor) 25 mg PO BID [facility] Stop: 12/05/17 08:59 Last Admin: 10/07/17 08:31 Dose: 25 mg Nitroglycerin (Nitrostat) 0.4 mg SL Q5MIN PRN PRN Reason: Chest Pain Stop: 12/04/17 21:42 Ondansetron HCl (Zofran) 4 mg IV Q8H PRN PRN Reason: Nausea / Vomiting Stop: 12/04/17 21:42 Zolpidem Tartrate (Ambien) 5 mg PO HS PRN PRN Reason: Insomnia Stop: 12/04/17 21:42 Last Admin: 10/06/17 03:25 Dose: 5 mg scheduled for HD today B/L foot better still w/ discoloration, tenderness on plapation WBC stable @ 4 Nutritional Asmnt/Malnutr-PDOC - Dietary Evaluation Malnutrition Findings (Please click <Entered> for more info): Nutritional Asmnt/Malnutrition Start: 10/06/17 17: 58 Text: Status: Complete Freq: Document 10/06/17 17:58 JESENIA (Rec: 10/06/17 18:15 [email or web address]) Nutritional Asmnt/Malnutrition Patient General Information Nutritional Screening High Risk Diagnosis bilateral lower extremities cellulitis Pertinent Medical Hx/Surgical Hx HTN, DM, CAD, dyslipidemia, ESRD, CABG Subjective Information Pt seen lying in bed at time of visit, awake and alert. Pt reported appetite OK, ate about 50% of lunch today. She likes hot cereal, fruits and veggies, tea instead of coffee , eats few meat. per notes, Pt receives dialysis MWF. Current Diet Order/ Nutrition Support renal Pertinent Medications colace, novolog, levemir, piperacillin Pertinent Labs 10/05 Na 132, K 3.9, Cl 94, BUN 17, Cr 3.0, Glucose 230, A1c 8.6 10/06 POC 116-202 Nutritional Hx/Data Height 1.57 m Height (Calculated Centimeters) 157.5 Current Weight (lbs) 74.843 kg Weight (Calculated Kilograms) 74.8 Weight (Calculated Grams) 60834.7 [place] Body Weight 110 % [place] Body Weight 150 Body Mass Index (BMI) 30.2 Weight Status Obese GI Symptoms GI Symptoms None Last BM no record Difficult in: None Skin Integrity/Comment: bilateral lower extremities cellulitis/redness, toes red Estimated Nutritional Goals BEE in Kcals: Adj wt of IBW Calories/Kcals/Kg 30-35 Kcals Calculated 1682-1752 Protein: Adj wt of IBW Protein g/k.2-1.4 pt on dialysis Protein Calculated 67-78 Fluid: ml [id number] or per MD order Nutritional Problem 2. Problem Problem increased nutrition needs ( protein) Etiology increased protein losses Signs/Symptoms: pt on dialysis 1. Problem Problem altered nutrition related lab values Etiology hx of DM Signs/Symptoms: Glucose 230, A1c 8.6 POC 116-202 Malnutrition Alert Protein-Calorie Malnutrition N/A Is there a minimum of two criteria No selected? Query Text:Check all the applicable criteria. A minimum of two criteria are recommended for diagnosis of either severe or non-severe malnutrition. Intervention/Recommendation Comments 1. Recommend CCHO-60gm Renal diet for optimal glycemic control. 2. If PO intake continue <75%, will consider Novasource Renal to increase protein intake 3. Monitor PO intake, wt, labs and skin integrity 4. F/U as high risk in 2-3 days, 10/08-10/09 Expected Outcomes/Goals Expected Outcomes/Goals 1. PO intake to meet at least 75% of nutritional needs. 2. Wt stability, skin to remain intact, labs to improve
--- NOTE | 2017-10-07 14:39 | Internal Medicine Prog Note ---
Internal Medicine Subjective - Subjective Service Date: 10/07/17 (undergoing hd ) Patient seen and examined:: with staff Patient is:: awake, verbal Per staff patient has:: tolerating meds Internal Medicine Objective - Results Result Diagrams: 10/07/17 07:37 10/07/17 05:51 Recent Labs: Laboratory Last Values WBC 4.6 Th/cmm (4.8-10.8) L 10/07/17 07:37 RBC 2.86 Mil/cmm (3.80-5.20) L 10/07/17 07:37 Hgb 10.2 gm/dL (12-16) L 10/07/17 07:37 Hct 30.7 % (41.0-60) L 10/07/17 07:37 MCV 107.1 fl (81-100) H 10/06/17 05:39 MCH 35.7 pg (27.0-31.0) H 10/07/17 07:37 MCHC Differential 33.2 pg (28.0-36.0) 10/07/17 07:37 RDW 14.4 % (11.5-20.0) 10/07/17 07:37 Plt Count 271 Th/cmm (150-400) 10/07/17 07:37 MPV 7.3 fl 10/07/17 07:37 Neutrophils % 68.3 % (40.0-80.0) 10/07/17 07:37 Band Neutrophils % 14 % (0-10) H 10/06/17 05:39 Lymphocytes % 14.5 % (20.0-50.0) L 10/07/17 07:37 Monocytes % 12.0 % (2.0-10.0) H 10/07/17 07:37 Eosinophils % 4.6 % (0.0-5.0) 10/07/17 07:37 Basophils % 0.6 % (0.0-2.0) 10/07/17 07:37 Neutrophils (Manual) 60 % (40-80) 10/06/17 05:39 Lymphocytes 17 % (20-50) L 10/06/17 05:39 Monocytes 8 % (2-10) 10/06/17 05:39 Eosinophils 1 % (0-5) 10/06/17 05:39 Platelet Estimate ADEQUATE (NORMAL) 10/06/17 05:39 Macrocytosis 1+ 10/06/17 05:39 ESR 49 mm/hr (0-30) H 10/06/17 05:39 PT 9.6 SECONDS (9.5-11.5) 10/05/17 20:20 INR 0.92 (0.5-1.4) 10/05/17 20:20 PTT (Actin FS) 22.5 SECONDS (26.0-38.0) L 10/05/17 20:20 Sodium 133 mEq/L (136-145) L 10/07/17 05:51 Potassium 4.1 mEq/L (3.5-5.1) 10/07/17 05:51 Chloride 98 mEq/L (98-107) 10/07/17 05:51 Carbon Dioxide 24.7 mEq/L (21.0-31.0) 10/07/17 05:51 Anion Gap 14.4 (7.0-16.0) 10/07/17 05:51 BUN 36 mg/dL (7-25) H 10/07/17 05:51 Creatinine 4.8 mg/dL (0.6-1.2) H* 10/07/17 05:51 Est GFR ( Amer) TNP 10/07/17 05:51 Est GFR (Non-Af Amer) TNP 10/07/17 05:51 BUN/Creatinine Ratio 7.5 10/07/17 05:51 Glucose 108 mg/dL (70-105) H 10/07/17 05:51 POC Glucose 97 MG/DL (70 - 105) 10/07/17 07:01 Hemoglobin A1c % 8.6 % (4.0-6.0) H 10/05/17 20:20 Whole Bld Lactic Acid 0.85 mmol/L (0.60-1.99) 10/05/17 20:20 Calcium 8.2 mg/dL (8.6-10.3) L 10/07/17 05:51 Magnesium 2.6 mg/dL (1.9-2.7) 10/07/17 05:51 Total Bilirubin 0.6 mg/dL (0.3-1.0) 10/05/17 20:20 AST 24 U/L (13-39) 10/05/17 20:20 ALT 17 U/L (7-52) 10/05/17 20:20 Alkaline Phosphatase 57 U/L (34-104) 10/05/17 20:20 Creatine Kinase 51 U/L (30-223) 10/05/17 20:20 Troponin I 0.04 ng/mL (0.01-0.05) 10/05/17 20:20 B-Natriuretic Peptide 733.0 pg/mL (5.0-100.0) H 10/07/17 05:51 Total Protein 6.8 gm/dL (6.0-8.3) 10/05/17 20:20 Albumin 3.8 gm/dL (3.7-5.3) 10/05/17 20:20 Globulin 3.0 gm/dL 10/05/17 20:20 Albumin/Globulin Ratio 1.3 (1.0-1.8) 10/05/17 20:20 TSH 1.32 uIU/ml (0.34-5.60) 10/06/17 05:39 Urine Source MIDSTREAM 10/05/17 20:20 Urine Color YELLOW 10/05/17 20:20 Urine Clarity CLEAR (CLEAR) 10/05/17 20:20 Urine pH 8.5 (4.6 - 8.0) 10/05/17 20:20 Ur Specific [place] 1.015 (1.005-1.030) 10/05/17 20:20 Urine Protein 100 mg/dL (NEGATIVE) H 10/05/17 20:20 Urine Glucose (UA) 100 mg/dL (NEGATIVE) H 10/05/17 20:20 Urine Ketones TRACE mg/dL (NEGATIVE) 10/05/17 20:20 Urine Blood TRACE (NEGATIVE) 10/05/17 20:20 Urine Nitrate NEGATIVE (NEGATIVE) 10/05/17 20:20 Urine Bilirubin NEGATIVE (NEGATIVE) 10/05/17 20:20 Urine Urobilinogen 0.2 E.U./dL (0.2 - 1.0) 10/05/17 20:20 Ur Leukocyte Esterase TRACE (NEGATIVE) H 10/05/17 20:20 Urine RBC 0-2 /hpf (0-5) 10/05/17 20:20 Urine WBC 2-5 /hpf (0-5) 10/05/17 20:20 Ur Epithelial Cells NONE SEEN /lpf (FEW) 10/05/17 20:20 Urine Bacteria NONE SEEN /hpf (NONE SEEN) 10/05/17 20:20 - Physical Exam Vitals and I&O: Vital Signs Temp 97.8 F 10/07/17 13:00 Pulse 50 10/07/17 13:00 Resp 17 10/07/17 13:00 BP 117/63 10/07/17 13:00 Pulse Ox 96 10/07/17 13:00 Intake & Output 10/06/17 10/07/17 10/07/17 18:59 06:59 18:59 Intake Total 50 400 Balance 50 400 Weight (lbs) 169 lb Intake: Intake, IV Amount 50 200 Piperacillin Sodium/ 50 100 Tazobact 2.25 gm In Sodium Chloride 0.9% 50 ml @ 100 mls/hr IV Q8HR [facility] Rx#:[id number] Oral 200 Other: # Voids 2 # Bowel Movements 2 Stool Characteristics Soft Soft Active Medications: Current Medications Acetaminophen (Tylenol) 650 mg PO Q4H PRN PRN Reason: Pain Or Fever above 101 Stop: 12/04/17 21:42 Acetaminophen/Hydrocodone Bitart ([place] 5mg/325mg) 1 tab PO Q4H PRN PRN Reason: Pain (Severe) Stop: 12/04/17 21:42 Albuterol Sulfate (Albuterol 2.5mg/3ml Neb Ud) 2.5 mg HHN Q2HRT PRN PRN Reason: Shortness of Breath or Wheeze Stop: 12/04/17 21:42 Amiodarone HCl (Cordarone) 200 mg PO DAILY [facility] Stop: 12/05/17 08:59 Last Admin: 10/07/17 08:30 Dose: 200 mg Aspirin (Ecotrin) 81 mg PO DAILY [facility] Stop: 12/05/17 08:59 Last Admin: 10/07/17 08:30 Dose: 81 mg Bisacodyl (Dulcolax 10 Mg Supp) 10 mg RC DAILY PRN PRN Reason: Constipation Stop: 12/05/17 13:03 Bisacodyl (Dulcolax 5 Mg Ec Tab) 10 mg PO PRN PRN PRN Reason: Constipation Stop: 12/05/17 14:57 Clopidogrel Bisulfate (Plavix) 75 mg PO DAILY [facility] Stop: 12/05/17 08:59 Last Admin: 10/07/17 08:30 Dose: 75 mg Docusate Sodium (Colace) 250 mg PO BID [facility] Stop: 12/05/17 16:59 Last Admin: 10/07/17 08:30 Dose: 250 mg Guaifenesin (Robitussin) 200 mg PO Q4HR PRN PRN Reason: Cough or Congestion Stop: 12/04/17 21:42 Heparin Sodium (Porcine) (Heparin Sodium) 0 units HD UD [facility] Stop: 10/08/17 00:00 Last Admin: 10/07/17 08:22 Dose: Not Given Piperacillin Sod/Tazobactam (Sod 2.25 gm/ Sodium Chloride) 50 mls @ 100 mls/hr IV Q8HR [facility] Stop: 12/05/17 04:59 Last Admin: 10/07/17 12:18 Dose: 100 mls/hr Insulin Aspart (Novolog Insulin Sliding Scale) 0 units SUBQ ACHS [facility] PRN Reason: Protocol Stop: 12/05/17 07:29 Last Admin: 10/07/17 11:54 Dose: 2 units Insulin Detemir (Levemir Insulin) 8 units SUBQ DAILY [facility] PRN Reason: Protocol Stop: 12/05/17 08:59 Last Admin: 10/07/17 08:30 Dose: 8 units Ipratropium [place] (Atrovent Neb 0.5mg/2.5ml) 0.5 mg HHN Q2HRT PRN PRN Reason: Shortness of Breath or Wheeze Stop: 12/04/17 21:42 Metoprolol Tartrate (Lopressor) 25 mg PO BID [facility] Stop: 12/05/17 08:59 Last Admin: 10/07/17 08:31 Dose: 25 mg Nitroglycerin (Nitrostat) 0.4 mg SL Q5MIN PRN PRN Reason: Chest Pain Stop: 12/04/17 21:42 Ondansetron HCl (Zofran) 4 mg IV Q8H PRN PRN Reason: Nausea / Vomiting Stop: 12/04/17 21:42 Zolpidem Tartrate (Ambien) 5 mg PO HS PRN PRN Reason: Insomnia Stop: 12/04/17 21:42 Last Admin: 10/06/17 03:25 Dose: 5 mg General: alert HEENT: NC/AT, PERRLA Neck: Supple Lungs: CTAB Abdomen: soft, non-tender Extremities: excoriation Neurological: alert Internal Medicine Assmt/Plan - Assessment Assessment: bilateral lower ext cellulitis htn esrd dm2 - Plan Plan: continue with hd continue ivabx follow up labs in am continue current plan of care Nutritional Asmnt/Malnutr-PDOC - Dietary Evaluation Malnutrition Findings (Please click <Entered> for more info): Nutritional Asmnt/Malnutrition Start: 10/06/17 17: 58 Text: Status: Complete Freq: Document 10/06/17 17:58 JESENIA (Rec: 10/06/17 18:15 [email or web address]) Nutritional Asmnt/Malnutrition Patient General Information Nutritional Screening High Risk Diagnosis bilateral lower extremities cellulitis Pertinent Medical Hx/Surgical Hx HTN, DM, CAD, dyslipidemia, ESRD, CABG Subjective Information Pt seen lying in bed at time of visit, awake and alert. Pt reported appetite OK, ate about 50% of lunch today. She likes hot cereal, fruits and veggies, tea instead of coffee , eats few meat. per notes, Pt receives dialysis MWF. Current Diet Order/ Nutrition Support renal Pertinent Medications colace, novolog, levemir, piperacillin Pertinent Labs 10/05 Na 132, K 3.9, Cl 94, BUN 17, Cr 3.0, Glucose 230, A1c 8.6 10/06 POC 116-202 Nutritional Hx/Data Height 5 ft 2 in Height (Calculated Centimeters) 157.5 Current Weight (lbs) 165 lb Weight (Calculated Kilograms) 74.8 Weight (Calculated Grams) 19254.7 [place] Body Weight 110 % [place] Body Weight 150 Body Mass Index (BMI) 30.2 Weight Status Obese GI Symptoms GI Symptoms None Last BM no record Difficult in: None Skin Integrity/Comment: bilateral lower extremities cellulitis/redness, toes red Estimated Nutritional Goals BEE in Kcals: Adj wt of IBW Calories/Kcals/Kg 30-35 Kcals Calculated 5049-3212 Protein: Adj wt of IBW Protein g/k.2-1.4 pt on dialysis Protein Calculated 67-78 Fluid: ml 8943-7206 or per MD order Nutritional Problem 2. Problem Problem increased nutrition needs ( protein) Etiology increased protein losses Signs/Symptoms: pt on dialysis 1. Problem Problem altered nutrition related lab values Etiology hx of DM Signs/Symptoms: Glucose 230, A1c 8.6 POC 116-202 Malnutrition Alert Protein-Calorie Malnutrition N/A Is there a minimum of two criteria No selected? Query Text:Check all the applicable criteria. A minimum of two criteria are recommended for diagnosis of either severe or non-severe malnutrition. Intervention/Recommendation Comments 1. Recommend CCHO-60gm Renal diet for optimal glycemic control. 2. If PO intake continue <75%, will consider Novasource Renal to increase protein intake 3. Monitor PO intake, wt, labs and skin integrity 4. F/U as high risk in 2-3 days, 10/08-10/09 Expected Outcomes/Goals Expected Outcomes/Goals 1. PO intake to meet at least 75% of nutritional needs. 2. Wt stability, skin to remain intact, labs to improve
[2017-10-07 23:23] LABS: MEAN CELL VOLUME 107.5 fl (81-100)
[2017-10-08 06:20] LABS: ANION GAP 12.4 (7.0-16.0); BUN - UREA NITROGEN 22 mg/dL (7-25); CALCIUM SERUM 8.5 mg/dL (8.6-10.3); CARBON DIOXIDE 30.2 mEq/L (21.0-31.0); CHLORIDE 98 mEq/L (98-107); GLUCOSE 112 mg/dL (70-105); POTASSIUM SERUM 3.6 mEq/L (3.5-5.1); SODIUM SERUM 137 mEq/L (136-145)
[2017-10-08 06:48] LABS: BASOPHILE ABSOLUTE 0.1 Th/cumm (0-0.2); EOSINOPHILE ABSOLUTE 0.2 Th/cmm (0.1-0.4); HEMATOCRIT 31.4 % (41.0-60); HEMOGLOBIN 10.4 gm/dL (12-16); LYMPHOCYTE ABSOLUTE 0.7 Th/cmm (1.5-3.0); MEAN CORPUSCULAR HEMOGLOBIN 35.6 pg (27.0-31.0); MEAN CORPUSCULAR HGB CONC 33.2 pg (28.0-36.0); MEAN PLATELET VOLUME 7.5 fl; MONOCYTE ABSOLUTE 0.7 Th/cmm (0.3-1.0); PLATELET COUNT 271 Th/cmm (150-400); RED BLOOD COUNT 2.93 Mil/cmm (3.80-5.20); RED CELL DISTRIBUTION WIDTH 14.8 % (11.5-20.0); WHITE BLOOD COUNT 4.7 Th/cmm (4.8-10.8)
[2017-10-08] MEDS: INSULIN ASPART SLIDING SCALE 100 UNITS/ML UNIT SUBQ SCH ×4 (06:52→20:37)
[2017-10-08] MEDS: Insulin Detemir 100 units/mL 10mL Vial SUBQ SCH (09:01)
[2017-10-08] MEDS: Hydrocodone/APAP 5mg/325mg Tab PO PRN ×2 (09:43→20:30)
--- NOTE | 2017-10-08 10:49 | General Progress Note ---
Subjective - Review of Systems Service Date: 10/08/17 Events since last encounter: chart reviewed pain left big toe for 3 months purplish toes for 3 moths had arterial doppler 3 weeks ago in [place], told she had PVD Plan: repeat arterial doppler Objective - Results Result Diagrams: 10/08/17 05:35 10/08/17 05:35 Recent Labs: Laboratory Last Values WBC 4.7 Th/cmm (4.8-10.8) L 10/08/17 05:35 RBC 2.93 Mil/cmm (3.80-5.20) L 10/08/17 05:35 Hgb 10.4 gm/dL (12-16) L 10/08/17 05:35 Hct 31.4 % (41.0-60) L 10/08/17 05:35 MCV 107.5 fl (81-100) H 10/07/17 07:37 MCH 35.6 pg (27.0-31.0) H 10/08/17 05:35 MCHC Differential 33.2 pg (28.0-36.0) 10/08/17 05:35 RDW 14.8 % (11.5-20.0) 10/08/17 05:35 Plt Count 271 Th/cmm (150-400) 10/08/17 05:35 MPV 7.5 fl 10/08/17 05:35 Neutrophils % 68.3 % (40.0-80.0) 10/07/17 07:37 Band Neutrophils % 14 % (0-10) H 10/06/17 05:39 Lymphocytes % 14.5 % (20.0-50.0) L 10/07/17 07:37 Monocytes % 12.0 % (2.0-10.0) H 10/07/17 07:37 Eosinophils % 4.6 % (0.0-5.0) 10/07/17 07:37 Basophils % 0.6 % (0.0-2.0) 10/07/17 07:37 Neutrophils (Manual) 60 % (40-80) 10/06/17 05:39 Lymphocytes 17 % (20-50) L 10/06/17 05:39 Monocytes 8 % (2-10) 10/06/17 05:39 Eosinophils 1 % (0-5) 10/06/17 05:39 Platelet Estimate ADEQUATE (NORMAL) 10/06/17 05:39 Macrocytosis 1+ 10/06/17 05:39 ESR 49 mm/hr (0-30) H 10/06/17 05:39 PT 9.6 SECONDS (9.5-11.5) 10/05/17 20:20 INR 0.92 (0.5-1.4) 10/05/17 20:20 PTT (Actin FS) 22.5 SECONDS (26.0-38.0) L 10/05/17 20:20 Sodium 137 mEq/L (136-145) 10/08/17 05:35 Potassium 3.6 mEq/L (3.5-5.1) 10/08/17 05:35 Chloride 98 mEq/L (98-107) 10/08/17 05:35 Carbon Dioxide 30.2 mEq/L (21.0-31.0) 10/08/17 05:35 Anion Gap 12.4 (7.0-16.0) 10/08/17 05:35 BUN 22 mg/dL (7-25) 10/08/17 05:35 Creatinine 4.0 mg/dL (0.6-1.2) H 10/08/17 05:35 Est GFR ( Amer) TNP 10/08/17 05:35 Est GFR (Non-Af Amer) TNP 10/08/17 05:35 BUN/Creatinine Ratio 5.5 10/08/17 05:35 Glucose 112 mg/dL (70-105) H 10/08/17 05:35 POC Glucose 97 MG/DL (70 - 105) 10/07/17 07:01 Hemoglobin A1c % 8.6 % (4.0-6.0) H 10/05/17 20:20 Whole Bld Lactic Acid 0.85 mmol/L (0.60-1.99) 10/05/17 20:20 Calcium 8.5 mg/dL (8.6-10.3) L 10/08/17 05:35 Magnesium 2.6 mg/dL (1.9-2.7) 10/07/17 05:51 Total Bilirubin 0.6 mg/dL (0.3-1.0) 10/05/17 20:20 AST 24 U/L (13-39) 10/05/17 20:20 ALT 17 U/L (7-52) 10/05/17 20:20 Alkaline Phosphatase 57 U/L (34-104) 10/05/17 20:20 Creatine Kinase 51 U/L (30-223) 10/05/17 20:20 Troponin I 0.04 ng/mL (0.01-0.05) 10/05/17 20:20 B-Natriuretic Peptide 733.0 pg/mL (5.0-100.0) H 10/07/17 05:51 Total Protein 6.8 gm/dL (6.0-8.3) 10/05/17 20:20 Albumin 3.8 gm/dL (3.7-5.3) 10/05/17 20:20 Globulin 3.0 gm/dL 10/05/17 20:20 Albumin/Globulin Ratio 1.3 (1.0-1.8) 10/05/17 20:20 TSH 1.32 uIU/ml (0.34-5.60) 10/06/17 05:39 Urine Source MIDSTREAM 10/05/17 20:20 Urine Color YELLOW 10/05/17 20:20 Urine Clarity CLEAR (CLEAR) 10/05/17 20:20 Urine pH 8.5 (4.6 - 8.0) 10/05/17 20:20 Ur Specific [place] 1.015 (1.005-1.030) 10/05/17 20:20 Urine Protein 100 mg/dL (NEGATIVE) H 10/05/17 20:20 Urine Glucose (UA) 100 mg/dL (NEGATIVE) H 10/05/17 20:20 Urine Ketones TRACE mg/dL (NEGATIVE) 10/05/17 20:20 Urine Blood TRACE (NEGATIVE) 10/05/17 20:20 Urine Nitrate NEGATIVE (NEGATIVE) 10/05/17 20:20 Urine Bilirubin NEGATIVE (NEGATIVE) 10/05/17 20:20 Urine Urobilinogen 0.2 E.U./dL (0.2 - 1.0) 10/05/17 20:20 Ur Leukocyte Esterase TRACE (NEGATIVE) H 10/05/17 20:20 Urine RBC 0-2 /hpf (0-5) 10/05/17 20:20 Urine WBC 2-5 /hpf (0-5) 10/05/17 20:20 Ur Epithelial Cells NONE SEEN /lpf (FEW) 10/05/17 20:20 Urine Bacteria NONE SEEN /hpf (NONE SEEN) 10/05/17 20:20 - Physical Exam Vitals and I&O: Vital Signs Temp 97.6 F 10/08/17 06:09 Pulse 50 10/08/17 08:59 Resp 18 10/08/17 06:09 BP 151/87 10/08/17 08:59 Pulse Ox 97 10/08/17 06:09 Intake & Output 10/07/17 10/08/17 10/08/17 18:59 06:59 18:59 Intake Total 1850 410 Output Total 1 Balance 1850 409 Weight (lbs) 76.657 kg 75.024 kg Intake: Intake, IV Amount 50 50 Piperacillin Sodium/ 50 50 Tazobact 2.25 gm In Sodium Chloride 0.9% 50 ml @ 100 mls/hr IV Q8HR [facility] Rx#:[id number] Oral 1800 360 Output: Urine 1 Other: # Voids 3 # Bowel Movements 1 Stool Characteristics Soft Soft Active Medications: Current Medications Acetaminophen (Tylenol) 650 mg PO Q4H PRN PRN Reason: Pain Or Fever above 101 Stop: 12/04/17 21:42 Last Admin: 10/07/17 17:59 Dose: 650 mg Acetaminophen/Hydrocodone Bitart ([place] 5mg/325mg) 1 tab PO Q4H PRN PRN Reason: Pain (Severe) Stop: 12/04/17 21:42 Last Admin: 10/08/17 09:43 Dose: 1 tab Albuterol Sulfate (Albuterol 2.5mg/3ml Neb Ud) 2.5 mg HHN Q2HRT PRN PRN Reason: Shortness of Breath or Wheeze Stop: 12/04/17 21:42 Amiodarone HCl (Cordarone) 200 mg PO DAILY [facility] Stop: 12/05/17 08:59 Last Admin: 10/08/17 08:58 Dose: 200 mg Aspirin (Ecotrin) 81 mg PO DAILY [facility] Stop: 12/05/17 08:59 Last Admin: 10/08/17 09:00 Dose: 81 mg Bisacodyl (Dulcolax 10 Mg Supp) 10 mg RC DAILY PRN PRN Reason: Constipation Stop: 12/05/17 13:03 Bisacodyl (Dulcolax 5 Mg Ec Tab) 10 mg PO PRN PRN PRN Reason: Constipation Stop: 12/05/17 14:57 Clopidogrel Bisulfate (Plavix) 75 mg PO DAILY [facility] Stop: 12/05/17 08:59 Last Admin: 10/08/17 09:00 Dose: 75 mg Docusate Sodium (Colace) 250 mg PO BID [facility] Stop: 12/05/17 16:59 Last Admin: 10/08/17 08:58 Dose: 250 mg Guaifenesin (Robitussin) 200 mg PO Q4HR PRN PRN Reason: Cough or Congestion Stop: 12/04/17 21:42 Piperacillin Sod/Tazobactam (Sod 2.25 gm/ Sodium Chloride) 50 mls @ 100 mls/hr IV Q8HR [facility] Stop: 12/05/17 04:59 Last Admin: 10/08/17 05:16 Dose: 100 mls/hr Insulin Aspart (Novolog Insulin Sliding Scale) 0 units SUBQ ACHS [facility] PRN Reason: Protocol Stop: 12/05/17 07:29 Last Admin: 10/08/17 06:52 Dose: Not Given Insulin Detemir (Levemir Insulin) 8 units SUBQ DAILY [facility] PRN Reason: Protocol Stop: 12/05/17 08:59 Last Admin: 10/08/17 09:01 Dose: 8 units Ipratropium [place] (Atrovent Neb 0.5mg/2.5ml) 0.5 mg HHN Q2HRT PRN PRN Reason: Shortness of Breath or Wheeze Stop: 12/04/17 21:42 Metoprolol Tartrate (Lopressor) 25 mg PO BID [facility] Stop: 12/05/17 08:59 Last Admin: 10/08/17 08:59 Dose: 25 mg Nitroglycerin (Nitrostat) 0.4 mg SL Q5MIN PRN PRN Reason: Chest Pain Stop: 12/04/17 21:42 Ondansetron HCl (Zofran) 4 mg IV Q8H PRN PRN Reason: Nausea / Vomiting Stop: 12/04/17 21:42 Zolpidem Tartrate (Ambien) 5 mg PO HS PRN PRN Reason: Insomnia Stop: 12/04/17 21:42 Last Admin: 10/06/17 03:25 Dose: 5 mg General: Alert, Mild distress HEENT: Atraumatic, PERRLA, EOMI, Mucous membr. moist/pink Neck: Supple, +2 carotid pulse wo bruit Cardiovascular: Regular rate, Normal S1, Normal S2 Lungs: Clear to auscultation Abdomen: Bowel sounds, Soft Extremities: Tender (erythema, tender , warm), Other, no Edema Neurological: Sensation intact Skin: no Rash Psych/Mental Status: Mood NL Nutritional Asmnt/Malnutr-PDOC - Dietary Evaluation Malnutrition Findings (Please click <Entered> for more info): Nutritional Asmnt/Malnutrition Start: 10/06/17 17: 58 Text: Status: Complete Freq: Document 10/06/17 17:58 [facility] (Rec: 10/06/17 18:15 [facility] [email or web address]) Nutritional Asmnt/Malnutrition Patient General Information Nutritional Screening High Risk Diagnosis bilateral lower extremities cellulitis Pertinent Medical Hx/Surgical Hx HTN, DM, CAD, dyslipidemia, ESRD, CABG Subjective Information Pt seen lying in bed at time of visit, awake and alert. Pt reported appetite OK, ate about 50% of lunch today. She likes hot cereal, fruits and veggies, tea instead of coffee , eats few meat. per notes, Pt receives dialysis MWF. Current Diet Order/ Nutrition Support renal Pertinent Medications colace, novolog, levemir, piperacillin Pertinent Labs 10/05 Na 132, K 3.9, Cl 94, BUN 17, Cr 3.0, Glucose 230, A1c 8.6 10/06 POC 116-202 Nutritional Hx/Data Height 1.57 m Height (Calculated Centimeters) 157.5 Current Weight (lbs) 74.843 kg Weight (Calculated Kilograms) 74.8 Weight (Calculated Grams) 54178.7 [place] Body Weight 110 % [place] Body Weight 150 Body Mass Index (BMI) 30.2 Weight Status Obese GI Symptoms GI Symptoms None Last BM no record Difficult in: None Skin Integrity/Comment: bilateral lower extremities cellulitis/redness, toes red Estimated Nutritional Goals BEE in Kcals: Adj wt of IBW Calories/Kcals/Kg 30-35 Kcals Calculated Protein: Adj wt of IBW Protein g/k.2-1.4 pt on dialysis Protein Calculated 67-78 Fluid: ml [id number] or per MD order Nutritional Problem 2. Problem Problem increased nutrition needs ( protein) Etiology increased protein losses Signs/Symptoms: pt on dialysis 1. Problem Problem altered nutrition related lab values Etiology hx of DM Signs/Symptoms: Glucose 230, A1c 8.6 POC 116-202 Malnutrition Alert Protein-Calorie Malnutrition N/A Is there a minimum of two criteria No selected? Query Text:Check all the applicable criteria. A minimum of two criteria are recommended for diagnosis of either severe or non-severe malnutrition. Intervention/Recommendation Comments 1. Recommend CCHO-60gm Renal diet for optimal glycemic control. 2. If PO intake continue <75%, will consider Novasource Renal to increase protein intake 3. Monitor PO intake, wt, labs and skin integrity 4. F/U as high risk in 2-3 days, 10/08-10/09 Expected Outcomes/Goals Expected Outcomes/Goals 1. PO intake to meet at least 75% of nutritional needs. 2. Wt stability, skin to remain intact, labs to improve
--- NOTE | 2017-10-08 13:35 | General Progress Note ---
Subjective - Review of Systems Service Date: 10/08/17 Subjective: alert, less foot pain Objective - Results Result Diagrams: 10/08/17 05:35 10/08/17 05:35 Recent Labs: Laboratory Last Values WBC 4.7 Th/cmm (4.8-10.8) L 10/08/17 05:35 RBC 2.93 Mil/cmm (3.80-5.20) L 10/08/17 05:35 Hgb 10.4 gm/dL (12-16) L 10/08/17 05:35 Hct 31.4 % (41.0-60) L 10/08/17 05:35 MCV 107.5 fl (81-100) H 10/07/17 07:37 MCH 35.6 pg (27.0-31.0) H 10/08/17 05:35 MCHC Differential 33.2 pg (28.0-36.0) 10/08/17 05:35 RDW 14.8 % (11.5-20.0) 10/08/17 05:35 Plt Count 271 Th/cmm (150-400) 10/08/17 05:35 MPV 7.5 fl 10/08/17 05:35 Neutrophils % 68.3 % (40.0-80.0) 10/07/17 07:37 Band Neutrophils % 14 % (0-10) H 10/06/17 05:39 Lymphocytes % 14.5 % (20.0-50.0) L 10/07/17 07:37 Monocytes % 12.0 % (2.0-10.0) H 10/07/17 07:37 Eosinophils % 4.6 % (0.0-5.0) 10/07/17 07:37 Basophils % 0.6 % (0.0-2.0) 10/07/17 07:37 Neutrophils (Manual) 60 % (40-80) 10/06/17 05:39 Lymphocytes 17 % (20-50) L 10/06/17 05:39 Monocytes 8 % (2-10) 10/06/17 05:39 Eosinophils 1 % (0-5) 10/06/17 05:39 Platelet Estimate ADEQUATE (NORMAL) 10/06/17 05:39 Macrocytosis 1+ 10/06/17 05:39 ESR 49 mm/hr (0-30) H 10/06/17 05:39 PT 9.6 SECONDS (9.5-11.5) 10/05/17 20:20 INR 0.92 (0.5-1.4) 10/05/17 20:20 PTT (Actin FS) 22.5 SECONDS (26.0-38.0) L 10/05/17 20:20 Sodium 137 mEq/L (136-145) 10/08/17 05:35 Potassium 3.6 mEq/L (3.5-5.1) 10/08/17 05:35 Chloride 98 mEq/L (98-107) 10/08/17 05:35 Carbon Dioxide 30.2 mEq/L (21.0-31.0) 10/08/17 05:35 Anion Gap 12.4 (7.0-16.0) 10/08/17 05:35 BUN 22 mg/dL (7-25) 10/08/17 05:35 Creatinine 4.0 mg/dL (0.6-1.2) H 10/08/17 05:35 Est GFR ( Amer) TNP 10/08/17 05:35 Est GFR (Non-Af Amer) TNP 10/08/17 05:35 BUN/Creatinine Ratio 5.5 10/08/17 05:35 Glucose 112 mg/dL (70-105) H 10/08/17 05:35 POC Glucose 97 MG/DL (70 - 105) 10/07/17 07:01 Hemoglobin A1c % 8.6 % (4.0-6.0) H 10/05/17 20:20 Whole Bld Lactic Acid 0.85 mmol/L (0.60-1.99) 10/05/17 20:20 Calcium 8.5 mg/dL (8.6-10.3) L 10/08/17 05:35 Magnesium 2.6 mg/dL (1.9-2.7) 10/07/17 05:51 Total Bilirubin 0.6 mg/dL (0.3-1.0) 10/05/17 20:20 AST 24 U/L (13-39) 10/05/17 20:20 ALT 17 U/L (7-52) 10/05/17 20:20 Alkaline Phosphatase 57 U/L (34-104) 10/05/17 20:20 Creatine Kinase 51 U/L (30-223) 10/05/17 20:20 Troponin I 0.04 ng/mL (0.01-0.05) 10/05/17 20:20 B-Natriuretic Peptide 733.0 pg/mL (5.0-100.0) H 10/07/17 05:51 Total Protein 6.8 gm/dL (6.0-8.3) 10/05/17 20:20 Albumin 3.8 gm/dL (3.7-5.3) 10/05/17 20:20 Globulin 3.0 gm/dL 10/05/17 20:20 Albumin/Globulin Ratio 1.3 (1.0-1.8) 10/05/17 20:20 TSH 1.32 uIU/ml (0.34-5.60) 10/06/17 05:39 Urine Source MIDSTREAM 10/05/17 20:20 Urine Color YELLOW 10/05/17 20:20 Urine Clarity CLEAR (CLEAR) 10/05/17 20:20 Urine pH 8.5 (4.6 - 8.0) 10/05/17 20:20 Ur Specific [place] 1.015 (1.005-1.030) 10/05/17 20:20 Urine Protein 100 mg/dL (NEGATIVE) H 10/05/17 20:20 Urine Glucose (UA) 100 mg/dL (NEGATIVE) H 10/05/17 20:20 Urine Ketones TRACE mg/dL (NEGATIVE) 10/05/17 20:20 Urine Blood TRACE (NEGATIVE) 10/05/17 20:20 Urine Nitrate NEGATIVE (NEGATIVE) 10/05/17 20:20 Urine Bilirubin NEGATIVE (NEGATIVE) 10/05/17 20:20 Urine Urobilinogen 0.2 E.U./dL (0.2 - 1.0) 10/05/17 20:20 Ur Leukocyte Esterase TRACE (NEGATIVE) H 10/05/17 20:20 Urine RBC 0-2 /hpf (0-5) 10/05/17 20:20 Urine WBC 2-5 /hpf (0-5) 10/05/17 20:20 Ur Epithelial Cells NONE SEEN /lpf (FEW) 10/05/17 20:20 Urine Bacteria NONE SEEN /hpf (NONE SEEN) 10/05/17 20:20 - Physical Exam Vitals and I&O: Vital Signs Temp 97.8 F 10/08/17 13:11 Pulse 46 10/08/17 13:11 Resp 18 10/08/17 13:11 BP 124/55 10/08/17 13:11 Pulse Ox 100 10/08/17 13:11 Intake & Output 10/07/17 10/08/17 10/08/17 18:59 06:59 18:59 Intake Total 1850 460 50 Output Total 1 Balance 1850 459 50 Weight (lbs) 76.657 kg 75.024 kg Intake: Intake, IV Amount 50 100 50 Piperacillin Sodium/ 50 100 50 Tazobact 2.25 gm In Sodium Chloride 0.9% 50 ml @ 100 mls/hr IV Q8HR [facility] Rx#:[id number] Oral 1800 360 Output: Urine 1 Other: # Voids 3 # Bowel Movements 1 Stool Characteristics Soft Soft Soft Active Medications: Current Medications Acetaminophen (Tylenol) 650 mg PO Q4H PRN PRN Reason: Pain Or Fever above 101 Stop: 12/04/17 21:42 Last Admin: 10/07/17 17:59 Dose: 650 mg Acetaminophen/Hydrocodone Bitart ([place] 5mg/325mg) 1 tab PO Q4H PRN PRN Reason: Pain (Severe) Stop: 12/04/17 21:42 Last Admin: 10/08/17 09:43 Dose: 1 tab Albuterol Sulfate (Albuterol 2.5mg/3ml Neb Ud) 2.5 mg HHN Q2HRT PRN PRN Reason: Shortness of Breath or Wheeze Stop: 12/04/17 21:42 Amiodarone HCl (Cordarone) 200 mg PO DAILY [facility] Stop: 12/05/17 08:59 Last Admin: 10/08/17 08:58 Dose: 200 mg Aspirin (Ecotrin) 81 mg PO DAILY [facility] Stop: 12/05/17 08:59 Last Admin: 10/08/17 09:00 Dose: 81 mg Bisacodyl (Dulcolax 10 Mg Supp) 10 mg RC DAILY PRN PRN Reason: Constipation Stop: 12/05/17 13:03 Bisacodyl (Dulcolax 5 Mg Ec Tab) 10 mg PO PRN PRN PRN Reason: Constipation Stop: 12/05/17 14:57 Clopidogrel Bisulfate (Plavix) 75 mg PO DAILY [facility] Stop: 12/05/17 08:59 Last Admin: 10/08/17 09:00 Dose: 75 mg Docusate Sodium (Colace) 250 mg PO BID [facility] Stop: 12/05/17 16:59 Last Admin: 10/08/17 08:58 Dose: 250 mg Guaifenesin (Robitussin) 200 mg PO Q4HR PRN PRN Reason: Cough or Congestion Stop: 12/04/17 21:42 Piperacillin Sod/Tazobactam (Sod 2.25 gm/ Sodium Chloride) 50 mls @ 100 mls/hr IV Q8HR [facility] Stop: 12/05/17 04:59 Last Infusion: 10/08/17 13:21 Dose: Infused Insulin Aspart (Novolog Insulin Sliding Scale) 0 units SUBQ ACHS [facility] PRN Reason: Protocol Stop: 12/05/17 07:29 Last Admin: 10/08/17 12:05 Dose: 2 units Insulin Detemir (Levemir Insulin) 8 units SUBQ DAILY [facility] PRN Reason: Protocol Stop: 12/05/17 08:59 Last Admin: 10/08/17 09:01 Dose: 8 units Ipratropium [place] (Atrovent Neb 0.5mg/2.5ml) 0.5 mg HHN Q2HRT PRN PRN Reason: Shortness of Breath or Wheeze Stop: 12/04/17 21:42 Metoprolol Tartrate (Lopressor) 25 mg PO BID [facility] Stop: 12/05/17 08:59 Last Admin: 10/08/17 08:59 Dose: 25 mg Nitroglycerin (Nitrostat) 0.4 mg SL Q5MIN PRN PRN Reason: Chest Pain Stop: 12/04/17 21:42 Ondansetron HCl (Zofran) 4 mg IV Q8H PRN PRN Reason: Nausea / Vomiting Stop: 12/04/17 21:42 Zolpidem Tartrate (Ambien) 5 mg PO HS PRN PRN Reason: Insomnia Stop: 12/04/17 21:42 Last Admin: 10/06/17 03:25 Dose: 5 mg General: Alert, Mild distress HEENT: Atraumatic, PERRLA, EOMI, Mucous membr. moist/pink Neck: Supple, +2 carotid pulse wo bruit Cardiovascular: Regular rate, Normal S1, Normal S2 Lungs: Clear to auscultation Abdomen: Bowel sounds, Soft Extremities: Tender (erythema, tender , warm), Other, no Edema Neurological: Sensation intact Skin: no Rash Psych/Mental Status: Mood NL Assessment/Plan - Assessment Assessment: ESRD On HD B/L Ischemic Toes w/ Cellulitis CAD S/P CABG Type 2 DM Ess Htn Dyslipidemia Severe PAD - Plan Plan: Lab - Result Diagrams 10/07/17 07:37 10/07/17 05:51 Current Medications Acetaminophen (Tylenol) 650 mg PO Q4H PRN PRN Reason: Pain Or Fever above 101 Stop: 12/04/17 21:42 Acetaminophen/Hydrocodone Bitart ([place] 5mg/325mg) 1 tab PO Q4H PRN PRN Reason: Pain (Severe) Stop: 12/04/17 21:42 Albuterol Sulfate (Albuterol 2.5mg/3ml Neb Ud) 2.5 mg HHN Q2HRT PRN PRN Reason: Shortness of Breath or Wheeze Stop: 12/04/17 21:42 Amiodarone HCl (Cordarone) 200 mg PO DAILY [facility] Stop: 12/05/17 08:59 Last Admin: 10/07/17 08:30 Dose: 200 mg Aspirin (Ecotrin) 81 mg PO DAILY [facility] Stop: 12/05/17 08:59 Last Admin: 10/07/17 08:30 Dose: 81 mg Bisacodyl (Dulcolax 10 Mg Supp) 10 mg RC DAILY PRN PRN Reason: Constipation Stop: 12/05/17 13:03 Bisacodyl (Dulcolax 5 Mg Ec Tab) 10 mg PO PRN PRN PRN Reason: Constipation Stop: 12/05/17 14:57 Clopidogrel Bisulfate (Plavix) 75 mg PO DAILY [facility] Stop: 12/05/17 08:59 Last Admin: 10/07/17 08:30 Dose: 75 mg Docusate Sodium (Colace) 250 mg PO BID [facility] Stop: 12/05/17 16:59 Last Admin: 10/07/17 08:30 Dose: 250 mg Guaifenesin (Robitussin) 200 mg PO Q4HR PRN PRN Reason: Cough or Congestion Stop: 12/04/17 21:42 Heparin Sodium (Porcine) (Heparin Sodium) 0 units HD UD [facility] Stop: 10/08/17 00:00 Last Admin: 10/07/17 08:22 Dose: Not Given Piperacillin Sod/Tazobactam (Sod 2.25 gm/ Sodium Chloride) 50 mls @ 100 mls/hr IV Q8HR [facility] Stop: 12/05/17 04:59 Last Admin: 10/07/17 12:18 Dose: 100 mls/hr Insulin Aspart (Novolog Insulin Sliding Scale) 0 units SUBQ ACHS [facility] PRN Reason: Protocol Stop: 12/05/17 07:29 Last Admin: 10/07/17 11:54 Dose: 2 units Insulin Detemir (Levemir Insulin) 8 units SUBQ DAILY [facility] PRN Reason: Protocol Stop: 12/05/17 08:59 Last Admin: 10/07/17 08:30 Dose: 8 units Ipratropium [place] (Atrovent Neb 0.5mg/2.5ml) 0.5 mg HHN Q2HRT PRN PRN Reason: Shortness of Breath or Wheeze Stop: 12/04/17 21:42 Metoprolol Tartrate (Lopressor) 25 mg PO BID [facility] Stop: 12/05/17 08:59 Last Admin: 10/07/17 08:31 Dose: 25 mg Nitroglycerin (Nitrostat) 0.4 mg SL Q5MIN PRN PRN Reason: Chest Pain Stop: 12/04/17 21:42 Ondansetron HCl (Zofran) 4 mg IV Q8H PRN PRN Reason: Nausea / Vomiting Stop: 12/04/17 21:42 Zolpidem Tartrate (Ambien) 5 mg PO HS PRN PRN Reason: Insomnia Stop: 12/04/17 21:42 Last Admin: 10/06/17 03:25 Dose: 5 mg Lab - Result Diagrams 10/08/17 05:35 10/08/17 05:35 pt. was dialyzed yesterday & tolerated it well B/L foot better still w/ discoloration, tenderness on plapation WBC stable @ 4.7 Nutritional Asmnt/Malnutr-PDOC - Dietary Evaluation Malnutrition Findings (Please click <Entered> for more info): Nutritional Asmnt/Malnutrition Start: 10/06/17 17: 58 Text: Status: Complete Freq: Document 10/06/17 17:58 [facility] (Rec: 10/06/17 18:15 [email or web address] [email or web address]) Nutritional Asmnt/Malnutrition Patient General Information Nutritional Screening High Risk Diagnosis bilateral lower extremities cellulitis Pertinent Medical Hx/Surgical Hx HTN, DM, CAD, dyslipidemia, ESRD, CABG Subjective Information Pt seen lying in bed at time of visit, awake and alert. Pt reported appetite OK, ate about 50% of lunch today. She likes hot cereal, fruits and veggies, tea instead of coffee , eats few meat. per notes, Pt receives dialysis MWF. Current Diet Order/ Nutrition Support renal Pertinent Medications colace, novolog, levemir, piperacillin Pertinent Labs 10/05 Na 132, K 3.9, Cl 94, BUN 17, Cr 3.0, Glucose 230, A1c 8.6 10/06 POC 116-202 Nutritional Hx/Data Height 1.57 m Height (Calculated Centimeters) 157.5 Current Weight (lbs) 74.843 kg Weight (Calculated Kilograms) 74.8 Weight (Calculated Grams) 55746.7 [place] Body Weight 110 % [place] Body Weight 150 Body Mass Index (BMI) 30.2 Weight Status Obese GI Symptoms GI Symptoms None Last BM no record Difficult in: None Skin Integrity/Comment: bilateral lower extremities cellulitis/redness, toes red Estimated Nutritional Goals BEE in Kcals: Adj wt of IBW Calories/Kcals/Kg 30-35 Kcals Calculated 1607-3264 Protein: Adj wt of IBW Protein g/k.2-1.4 pt on dialysis Protein Calculated 67-78 Fluid: ml 6737-1040 or per MD order Nutritional Problem 2. Problem Problem increased nutrition needs ( protein) Etiology increased protein losses Signs/Symptoms: pt on dialysis 1. Problem Problem altered nutrition related lab values Etiology hx of DM Signs/Symptoms: Glucose 230, A1c 8.6 POC 116-202 Malnutrition Alert Protein-Calorie Malnutrition N/A Is there a minimum of two criteria No selected? Query Text:Check all the applicable criteria. A minimum of two criteria are recommended for diagnosis of either severe or non-severe malnutrition. Intervention/Recommendation Comments 1. Recommend CCHO-60gm Renal diet for optimal glycemic control. 2. If PO intake continue <75%, will consider Novasource Renal to increase protein intake 3. Monitor PO intake, wt, labs and skin integrity 4. F/U as high risk in 2-3 days, 10/08-10/09 Expected Outcomes/Goals Expected Outcomes/Goals 1. PO intake to meet at least 75% of nutritional needs. 2. Wt stability, skin to remain intact, labs to improve
[2017-10-08] MEDS ORDERED: Probiotic Screen MC PRN (15:00)
--- NOTE | 2017-10-08 16:26 | Internal Medicine Prog Note ---
Internal Medicine Subjective - Subjective Service Date: 10/08/17 Patient seen and examined:: with staff Patient is:: awake, verbal Patient Complaints of:: vomitting Per staff patient has:: tolerating meds Internal Medicine Objective - Results Result Diagrams: 10/08/17 05:35 10/08/17 05:35 Recent Labs: Laboratory Last Values WBC 4.7 Th/cmm (4.8-10.8) L 10/08/17 05:35 RBC 2.93 Mil/cmm (3.80-5.20) L 10/08/17 05:35 Hgb 10.4 gm/dL (12-16) L 10/08/17 05:35 Hct 31.4 % (41.0-60) L 10/08/17 05:35 MCV 107.5 fl (81-100) H 10/07/17 07:37 MCH 35.6 pg (27.0-31.0) H 10/08/17 05:35 MCHC Differential 33.2 pg (28.0-36.0) 10/08/17 05:35 RDW 14.8 % (11.5-20.0) 10/08/17 05:35 Plt Count 271 Th/cmm (150-400) 10/08/17 05:35 MPV 7.5 fl 10/08/17 05:35 Neutrophils % 68.3 % (40.0-80.0) 10/07/17 07:37 Band Neutrophils % 14 % (0-10) H 10/06/17 05:39 Lymphocytes % 14.5 % (20.0-50.0) L 10/07/17 07:37 Monocytes % 12.0 % (2.0-10.0) H 10/07/17 07:37 Eosinophils % 4.6 % (0.0-5.0) 10/07/17 07:37 Basophils % 0.6 % (0.0-2.0) 10/07/17 07:37 Neutrophils (Manual) 60 % (40-80) 10/06/17 05:39 Lymphocytes 17 % (20-50) L 10/06/17 05:39 Monocytes 8 % (2-10) 10/06/17 05:39 Eosinophils 1 % (0-5) 10/06/17 05:39 Platelet Estimate ADEQUATE (NORMAL) 10/06/17 05:39 Macrocytosis 1+ 10/06/17 05:39 ESR 49 mm/hr (0-30) H 10/06/17 05:39 PT 9.6 SECONDS (9.5-11.5) 10/05/17 20:20 INR 0.92 (0.5-1.4) 10/05/17 20:20 PTT (Actin FS) 22.5 SECONDS (26.0-38.0) L 10/05/17 20:20 Sodium 137 mEq/L (136-145) 10/08/17 05:35 Potassium 3.6 mEq/L (3.5-5.1) 10/08/17 05:35 Chloride 98 mEq/L (98-107) 10/08/17 05:35 Carbon Dioxide 30.2 mEq/L (21.0-31.0) 10/08/17 05:35 Anion Gap 12.4 (7.0-16.0) 10/08/17 05:35 BUN 22 mg/dL (7-25) 10/08/17 05:35 Creatinine 4.0 mg/dL (0.6-1.2) H 10/08/17 05:35 Est GFR ( Amer) TNP 10/08/17 05:35 Est GFR (Non-Af Amer) TNP 10/08/17 05:35 BUN/Creatinine Ratio 5.5 10/08/17 05:35 Glucose 112 mg/dL (70-105) H 10/08/17 05:35 POC Glucose 97 MG/DL (70 - 105) 10/07/17 07:01 Hemoglobin A1c % 8.6 % (4.0-6.0) H 10/05/17 20:20 Whole Bld Lactic Acid 0.85 mmol/L (0.60-1.99) 10/05/17 20:20 Calcium 8.5 mg/dL (8.6-10.3) L 10/08/17 05:35 Magnesium 2.6 mg/dL (1.9-2.7) 10/07/17 05:51 Total Bilirubin 0.6 mg/dL (0.3-1.0) 10/05/17 20:20 AST 24 U/L (13-39) 10/05/17 20:20 ALT 17 U/L (7-52) 10/05/17 20:20 Alkaline Phosphatase 57 U/L (34-104) 10/05/17 20:20 Creatine Kinase 51 U/L (30-223) 10/05/17 20:20 Troponin I 0.04 ng/mL (0.01-0.05) 10/05/17 20:20 B-Natriuretic Peptide 733.0 pg/mL (5.0-100.0) H 10/07/17 05:51 Total Protein 6.8 gm/dL (6.0-8.3) 10/05/17 20:20 Albumin 3.8 gm/dL (3.7-5.3) 10/05/17 20:20 Globulin 3.0 gm/dL 10/05/17 20:20 Albumin/Globulin Ratio 1.3 (1.0-1.8) 10/05/17 20:20 TSH 1.32 uIU/ml (0.34-5.60) 10/06/17 05:39 Urine Source MIDSTREAM 10/05/17 20:20 Urine Color YELLOW 10/05/17 20:20 Urine Clarity CLEAR (CLEAR) 10/05/17 20:20 Urine pH 8.5 (4.6 - 8.0) 10/05/17 20:20 Ur Specific [place] 1.015 (1.005-1.030) 10/05/17 20:20 Urine Protein 100 mg/dL (NEGATIVE) H 10/05/17 20:20 Urine Glucose (UA) 100 mg/dL (NEGATIVE) H 10/05/17 20:20 Urine Ketones TRACE mg/dL (NEGATIVE) 10/05/17 20:20 Urine Blood TRACE (NEGATIVE) 10/05/17 20:20 Urine Nitrate NEGATIVE (NEGATIVE) 10/05/17 20:20 Urine Bilirubin NEGATIVE (NEGATIVE) 10/05/17 20:20 Urine Urobilinogen 0.2 E.U./dL (0.2 - 1.0) 10/05/17 20:20 Ur Leukocyte Esterase TRACE (NEGATIVE) H 10/05/17 20:20 Urine RBC 0-2 /hpf (0-5) 10/05/17 20:20 Urine WBC 2-5 /hpf (0-5) 10/05/17 20:20 Ur Epithelial Cells NONE SEEN /lpf (FEW) 10/05/17 20:20 Urine Bacteria NONE SEEN /hpf (NONE SEEN) 10/05/17 20:20 - Physical Exam Vitals and I&O: Vital Signs Temp 97.8 F 10/08/17 13:11 Pulse 46 10/08/17 13:11 Resp 18 10/08/17 13:11 BP 124/55 10/08/17 13:11 Pulse Ox 100 10/08/17 13:11 Intake & Output 10/07/17 10/08/17 10/08/17 18:59 06:59 18:59 Intake Total 1850 460 50 Output Total 1 Balance 1850 459 50 Weight (lbs) 169 lb 165 lb 6.4 oz Intake: Intake, IV Amount 50 100 50 Piperacillin Sodium/ 50 100 50 Tazobact 2.25 gm In Sodium Chloride 0.9% 50 ml @ 100 mls/hr IV Q8HR ON LICENSE OF [facility] Rx#:[id number] Oral 1800 360 Output: Urine 1 Other: # Voids 3 # Bowel Movements 1 Stool Characteristics Soft Soft Soft Active Medications: Current Medications Acetaminophen (Tylenol) 650 mg PO Q4H PRN PRN Reason: Pain Or Fever above 101 Stop: 12/04/17 21:42 Last Admin: 10/07/17 17:59 Dose: 650 mg Acetaminophen/Hydrocodone Bitart ([place] 5mg/325mg) 1 tab PO Q4H PRN PRN Reason: Pain (Severe) Stop: 12/04/17 21:42 Last Admin: 10/08/17 09:43 Dose: 1 tab Albuterol Sulfate (Albuterol 2.5mg/3ml Neb Ud) 2.5 mg HHN Q2HRT PRN PRN Reason: Shortness of Breath or Wheeze Stop: 12/04/17 21:42 Amiodarone HCl (Cordarone) 200 mg PO DAILY ON LICENSE OF [facility] Stop: 12/05/17 08:59 Last Admin: 10/08/17 08:58 Dose: 200 mg Aspirin (Ecotrin) 81 mg PO DAILY ON LICENSE OF [facility] Stop: 12/05/17 08:59 Last Admin: 10/08/17 09:00 Dose: 81 mg Bisacodyl (Dulcolax 10 Mg Supp) 10 mg RC DAILY PRN PRN Reason: Constipation Stop: 12/05/17 13:03 Bisacodyl (Dulcolax 5 Mg Ec Tab) 10 mg PO PRN PRN PRN Reason: Constipation Stop: 12/05/17 14:57 Clopidogrel Bisulfate (Plavix) 75 mg PO DAILY KHANG Stop: 12/05/17 08:59 Last Admin: 10/08/17 09:00 Dose: 75 mg Docusate Sodium (Colace) 250 mg PO BID ON LICENSE OF [facility] Stop: 12/05/17 16:59 Last Admin: 10/08/17 08:58 Dose: 250 mg Guaifenesin (Robitussin) 200 mg PO Q4HR PRN PRN Reason: Cough or Congestion Stop: 12/04/17 21:42 Piperacillin Sod/Tazobactam (Sod 2.25 gm/ Sodium Chloride) 50 mls @ 100 mls/hr IV Q8HR [facility]ANG Stop: 12/05/17 04:59 Last Infusion: 10/08/17 13:21 Dose: Infused Insulin Aspart (Novolog Insulin Sliding Scale) 0 units SUBQ ACHS KHANG PRN Reason: Protocol Stop: 12/05/17 07:29 Last Admin: 10/08/17 12:05 Dose: 2 units Insulin Detemir (Levemir Insulin) 8 units SUBQ DAILY KHANG PRN Reason: Protocol Stop: 12/05/17 08:59 Last Admin: 10/08/17 09:01 Dose: 8 units Ipratropium [place] (Atrovent Neb 0.5mg/2.5ml) 0.5 mg HHN Q2HRT PRN PRN Reason: Shortness of Breath or Wheeze Stop: 12/04/17 21:42 Lactobacillus Rhamnosus (Culturelle 15b) 1 each PO DAILY ON LICENSE OF [facility] Stop: 12/08/17 08:59 Metoprolol Tartrate (Lopressor) 25 mg PO BID ON LICENSE OF [facility] Stop: 12/05/17 08:59 Last Admin: 10/08/17 08:59 Dose: 25 mg Miscellaneous (Probiotic Screen) 1 ea MC PRN PRN PRN Reason: PROTOCOL Stop: 12/07/17 14:59 Nitroglycerin (Nitrostat) 0.4 mg SL Q5MIN PRN PRN Reason: Chest Pain Stop: 12/04/17 21:42 Ondansetron HCl (Zofran) 4 mg IV Q8H PRN PRN Reason: Nausea / Vomiting Stop: 12/04/17 21:42 Last Admin: 10/08/17 14:59 Dose: 4 mg Zolpidem Tartrate (Ambien) 5 mg PO HS PRN PRN Reason: Insomnia Stop: 12/04/17 21:42 Last Admin: 10/06/17 03:25 Dose: 5 mg General: alert HEENT: NC/AT, PERRLA Neck: Supple Lungs: CTAB Abdomen: soft, non-tender Extremities: excoriation Neurological: alert Internal Medicine Assmt/Plan - Assessment Assessment: bilateral lower ext cellulitis htn esrd dm2 vomiting - Plan Plan: abdominal us now continue with hd continue ivabx follow up labs in am continue current plan of care Nutritional Asmnt/Malnutr-PDOC - Dietary Evaluation Malnutrition Findings (Please click <Entered> for more info): Nutritional Asmnt/Malnutrition Start: 10/06/17 17: 58 Text: Status: Complete Freq: Document 10/06/17 17:58 JESENIA (Rec: 10/06/17 18:15 [email or web address]) Nutritional Asmnt/Malnutrition Patient General Information Nutritional Screening High Risk Diagnosis bilateral lower extremities cellulitis Pertinent Medical Hx/Surgical Hx HTN, DM, CAD, dyslipidemia, ESRD, CABG Subjective Information Pt seen lying in bed at time of visit, awake and alert. Pt reported appetite OK, ate about 50% of lunch today. She likes hot cereal, fruits and veggies, tea instead of coffee , eats few meat. per notes, Pt receives dialysis MWF. Current Diet Order/ Nutrition Support renal Pertinent Medications colace, novolog, levemir, piperacillin Pertinent Labs 10/05 Na 132, K 3.9, Cl 94, BUN 17, Cr 3.0, Glucose 230, A1c 8.6 10/06 POC 116-202 Nutritional Hx/Data Height 5 ft 2 in Height (Calculated Centimeters) 157.5 Current Weight (lbs) 165 lb Weight (Calculated Kilograms) 74.8 Weight (Calculated Grams) 80747.7 [place] Body Weight 110 % [place] Body Weight 150 Body Mass Index (BMI) 30.2 Weight Status Obese GI Symptoms GI Symptoms None Last BM no record Difficult in: None Skin Integrity/Comment: bilateral lower extremities cellulitis/redness, toes red Estimated Nutritional Goals BEE in Kcals: Adj wt of IBW Calories/Kcals/Kg 30-35 Kcals Calculated 4212-5297 Protein: Adj wt of IBW Protein g/k.2-1.4 pt on dialysis Protein Calculated 67-78 Fluid: ml [id number] or per MD order Nutritional Problem 2. Problem Problem increased nutrition needs ( protein) Etiology increased protein losses Signs/Symptoms: pt on dialysis 1. Problem Problem altered nutrition related lab values Etiology hx of DM Signs/Symptoms: Glucose 230, A1c 8.6 POC 116-202 Malnutrition Alert Protein-Calorie Malnutrition N/A Is there a minimum of two criteria No selected? Query Text:Check all the applicable criteria. A minimum of two criteria are recommended for diagnosis of either severe or non-severe malnutrition. Intervention/Recommendation Comments 1. Recommend CCHO-60gm Renal diet for optimal glycemic control. 2. If PO intake continue <75%, will consider Novasource Renal to increase protein intake 3. Monitor PO intake, wt, labs and skin integrity 4. F/U as high risk in 2-3 days, 10/08-10/09 Expected Outcomes/Goals Expected Outcomes/Goals 1. PO intake to meet at least 75% of nutritional needs. 2. Wt stability, skin to remain intact, labs to improve
[2017-10-08 23:14] LABS: MEAN CELL VOLUME 107.2 fl (81-100)
[2017-10-09] MEDS: INSULIN ASPART SLIDING SCALE 100 UNITS/ML UNIT SUBQ SCH ×4 (06:43→22:06)
[2017-10-09 07:39] LABS: ANION GAP 15.9 (7.0-16.0); BUN - UREA NITROGEN 34 mg/dL (7-25); CALCIUM SERUM 8.7 mg/dL (8.6-10.3); CARBON DIOXIDE 27.9 mEq/L (21.0-31.0); CHLORIDE 95 mEq/L (98-107); GLUCOSE 120 mg/dL (70-105); POTASSIUM SERUM 3.8 mEq/L (3.5-5.1); SODIUM SERUM 135 mEq/L (136-145)
[2017-10-09 07:53] LABS: % EOSINOPHILS 5.5 % (0.0-5.0); % LYMPHOCYTES 20.6 % (20.0-50.0); % MONOCYTES 12.1 % (2.0-10.0); % NEUTROPHILS 60.8 % (40.0-80.0); BASOPHILE ABSOLUTE 0.1 Th/cumm (0-0.2); EOSINOPHILE ABSOLUTE 0.3 Th/cmm (0.1-0.4); HEMATOCRIT 33.6 % (41.0-60); HEMOGLOBIN 11.4 gm/dL (12-16); LYMPHOCYTE ABSOLUTE 1.3 Th/cmm (1.5-3.0); MEAN CORPUSCULAR HEMOGLOBIN 36.2 pg (27.0-31.0); MEAN CORPUSCULAR HGB CONC 33.8 pg (28.0-36.0); MEAN PLATELET VOLUME 7.8 fl; MONOCYTE ABSOLUTE 0.8 Th/cmm (0.3-1.0); NEUTROPHILE ABSOLUTE 3.7 Th/cmm (1.8-8.0); PLATELET COUNT 320 Th/cmm (150-400); RED BLOOD COUNT 3.14 Mil/cmm (3.80-5.20); RED CELL DISTRIBUTION WIDTH 14.6 % (11.5-20.0)
[2017-10-09 07:58] LABS: WHITE BLOOD COUNT 6.2 Th/cmm (4.8-10.8)
[2017-10-09 08:17] LABS: CREATININE - SERUM 5.6 mg/dL (0.6-1.2)
[2017-10-09] MEDS: Lactobacillus Rhamnosus GG 15 Billion CFU CAP.SPRINK PO SCH (09:54)
[2017-10-09] MEDS: Insulin Detemir 100 units/mL 10mL Vial SUBQ SCH (09:55)
[2017-10-09] MEDS ORDERED: Probiotic Screen MC PRN (12:30)
--- NOTE | 2017-10-09 13:17 | Internal Medicine Prog Note ---
Internal Medicine Subjective - Subjective Service Date: 10/09/17 Patient seen and examined:: with staff Patient is:: awake, verbal Patient Complaints of:: vomitting Per staff patient has:: tolerating meds Internal Medicine Objective - Results Result Diagrams: 10/09/17 06:20 10/09/17 06:20 Recent Labs: Laboratory Last Values WBC 6.2 Th/cmm (4.8-10.8) D 10/09/17 06:20 RBC 3.14 Mil/cmm (3.80-5.20) L 10/09/17 06:20 Hgb 11.4 gm/dL (12-16) L 10/09/17 06:20 Hct 33.6 % (41.0-60) L 10/09/17 06:20 MCV 107.2 fl (81-100) H 10/08/17 05:35 MCH 36.2 pg (27.0-31.0) H 10/09/17 06:20 MCHC Differential 33.8 pg (28.0-36.0) 10/09/17 06:20 RDW 14.6 % (11.5-20.0) 10/09/17 06:20 Plt Count 320 Th/cmm (150-400) 10/09/17 06:20 MPV 7.8 fl 10/09/17 06:20 Neutrophils % 60.8 % (40.0-80.0) 10/09/17 06:20 Band Neutrophils % 14 % (0-10) H 10/06/17 05:39 Lymphocytes % 20.6 % (20.0-50.0) 10/09/17 06:20 Monocytes % 12.1 % (2.0-10.0) H 10/09/17 06:20 Eosinophils % 5.5 % (0.0-5.0) H 10/09/17 06:20 Basophils % 1.0 % (0.0-2.0) 10/09/17 06:20 Neutrophils (Manual) 60 % (40-80) 10/06/17 05:39 Lymphocytes 17 % (20-50) L 10/06/17 05:39 Monocytes 8 % (2-10) 10/06/17 05:39 Eosinophils 1 % (0-5) 10/06/17 05:39 Platelet Estimate ADEQUATE (NORMAL) 10/06/17 05:39 Macrocytosis 1+ 10/06/17 05:39 ESR 49 mm/hr (0-30) H 10/06/17 05:39 PT 9.6 SECONDS (9.5-11.5) 10/05/17 20:20 INR 0.92 (0.5-1.4) 10/05/17 20:20 PTT (Actin FS) 22.5 SECONDS (26.0-38.0) L 10/05/17 20:20 Sodium 135 mEq/L (136-145) L 10/09/17 06:20 Potassium 3.8 mEq/L (3.5-5.1) 10/09/17 06:20 Chloride 95 mEq/L (98-107) L 10/09/17 06:20 Carbon Dioxide 27.9 mEq/L (21.0-31.0) 10/09/17 06:20 Anion Gap 15.9 (7.0-16.0) 10/09/17 06:20 BUN 34 mg/dL (7-25) H 10/09/17 06:20 Creatinine 5.6 mg/dL (0.6-1.2) H* 10/09/17 06:20 Est GFR ( Amer) TNP 10/09/17 06:20 Est GFR (Non-Af Amer) TNP 10/09/17 06:20 BUN/Creatinine Ratio 6.1 10/09/17 06:20 Glucose 120 mg/dL (70-105) H 10/09/17 06:20 POC Glucose 97 MG/DL (70 - 105) 10/07/17 07:01 Hemoglobin A1c % 8.6 % (4.0-6.0) H 10/05/17 20:20 Whole Bld Lactic Acid 0.85 mmol/L (0.60-1.99) 10/05/17 20:20 Calcium 8.7 mg/dL (8.6-10.3) 10/09/17 06:20 Magnesium 2.6 mg/dL (1.9-2.7) 10/07/17 05:51 Total Bilirubin 0.6 mg/dL (0.3-1.0) 10/05/17 20:20 AST 24 U/L (13-39) 10/05/17 20:20 ALT 17 U/L (7-52) 10/05/17 20:20 Alkaline Phosphatase 57 U/L (34-104) 10/05/17 20:20 Creatine Kinase 51 U/L (30-223) 10/05/17 20:20 Troponin I 0.04 ng/mL (0.01-0.05) 10/05/17 20:20 B-Natriuretic Peptide 733.0 pg/mL (5.0-100.0) H 10/07/17 05:51 Total Protein 6.8 gm/dL (6.0-8.3) 10/05/17 20:20 Albumin 3.8 gm/dL (3.7-5.3) 10/05/17 20:20 Globulin 3.0 gm/dL 10/05/17 20:20 Albumin/Globulin Ratio 1.3 (1.0-1.8) 10/05/17 20:20 TSH 1.32 uIU/ml (0.34-5.60) 10/06/17 05:39 Urine Source MIDSTREAM 10/05/17 20:20 Urine Color YELLOW 10/05/17 20:20 Urine Clarity CLEAR (CLEAR) 10/05/17 20:20 Urine pH 8.5 (4.6 - 8.0) 10/05/17 20:20 Ur Specific [place] 1.015 (1.005-1.030) 10/05/17 20:20 Urine Protein 100 mg/dL (NEGATIVE) H 10/05/17 20:20 Urine Glucose (UA) 100 mg/dL (NEGATIVE) H 10/05/17 20:20 Urine Ketones TRACE mg/dL (NEGATIVE) 10/05/17 20:20 Urine Blood TRACE (NEGATIVE) 10/05/17 20:20 Urine Nitrate NEGATIVE (NEGATIVE) 10/05/17 20:20 Urine Bilirubin NEGATIVE (NEGATIVE) 10/05/17 20:20 Urine Urobilinogen 0.2 E.U./dL (0.2 - 1.0) 10/05/17 20:20 Ur Leukocyte Esterase TRACE (NEGATIVE) H 10/05/17 20:20 Urine RBC 0-2 /hpf (0-5) 10/05/17 20:20 Urine WBC 2-5 /hpf (0-5) 10/05/17 20:20 Ur Epithelial Cells NONE SEEN /lpf (FEW) 10/05/17 20:20 Urine Bacteria NONE SEEN /hpf (NONE SEEN) 10/05/17 20:20 - Physical Exam Vitals and I&O: Vital Signs Temp 96.7 F 10/09/17 08:00 Pulse 51 10/09/17 09:54 Resp 18 10/09/17 08:00 BP 140/47 10/09/17 09:54 Pulse Ox 97 10/09/17 08:00 Intake & Output 10/08/17 10/09/17 10/09/17 18:59 06:59 18:59 Intake Total 750 500 Balance 750 500 Weight (lbs) 165 lb 166 lb Intake: Intake, IV Amount 50 100 Piperacillin Sodium/ 50 100 Tazobact 2.25 gm In Sodium Chloride 0.9% 50 ml @ 100 mls/hr IV Q8HR [facility] Rx#:[id number] Oral 700 400 Other: # Voids 3 2 # Bowel Movements 2 1 Stool Characteristics Soft Soft Soft Active Medications: Current Medications Acetaminophen (Tylenol) 650 mg PO Q4H PRN PRN Reason: Pain Or Fever above 101 Stop: 12/04/17 21:42 Last Admin: 10/07/17 17:59 Dose: 650 mg Acetaminophen/Hydrocodone Bitart ([place] 5mg/325mg) 1 tab PO Q4H PRN PRN Reason: Pain (Severe) Stop: 12/04/17 21:42 Last Admin: 10/08/17 20:30 Dose: 1 tab Albuterol Sulfate (Albuterol 2.5mg/3ml Neb Ud) 2.5 mg HHN Q2HRT PRN PRN Reason: Shortness of Breath or Wheeze Stop: 12/04/17 21:42 Amiodarone HCl (Cordarone) 200 mg PO DAILY [facility] Stop: 12/05/17 08:59 Last Admin: 10/09/17 09:53 Dose: 200 mg Aspirin (Ecotrin) 81 mg PO DAILY [facility] Stop: 12/05/17 08:59 Last Admin: 10/09/17 09:53 Dose: 81 mg Bisacodyl (Dulcolax 10 Mg Supp) 10 mg RC DAILY PRN PRN Reason: Constipation Stop: 12/05/17 13:03 Bisacodyl (Dulcolax 5 Mg Ec Tab) 10 mg PO PRN PRN PRN Reason: Constipation Stop: 12/05/17 14:57 Clopidogrel Bisulfate (Plavix) 75 mg PO DAILY [facility] Stop: 12/05/17 08:59 Last Admin: 10/09/17 09:54 Dose: 75 mg Docusate Sodium (Colace) 250 mg PO BID [facility] Stop: 12/05/17 16:59 Last Admin: 10/09/17 10:25 Dose: Not Given Guaifenesin (Robitussin) 200 mg PO Q4HR PRN PRN Reason: Cough or Congestion Stop: 12/04/17 21:42 Piperacillin Sod/Tazobactam (Sod 2.25 gm/ Sodium Chloride) 50 mls @ 100 mls/hr IV Q8HR [facility] Stop: 12/05/17 04:59 Last Admin: 10/09/17 12:07 Dose: 100 mls/hr Insulin Aspart (Novolog Insulin Sliding Scale) 0 units SUBQ ACHS KHANG PRN Reason: Protocol Stop: 12/05/17 07:29 Last Admin: 10/09/17 12:07 Dose: 2 units Insulin Detemir (Levemir Insulin) 8 units SUBQ DAILY KHANG PRN Reason: Protocol Stop: 12/05/17 08:59 Last Admin: 10/09/17 09:55 Dose: Not Given Ipratropium [place] (Atrovent Neb 0.5mg/2.5ml) 0.5 mg HHN Q2HRT PRN PRN Reason: Shortness of Breath or Wheeze Stop: 12/04/17 21:42 Lactobacillus Rhamnosus (Culturelle 15b) 1 each PO DAILY [facility]ANG Stop: 12/08/17 08:59 Last Admin: 10/09/17 09:54 Dose: 1 each Lactobacillus Rhamnosus (Culturelle 15b) 1 each PO DAILY [facility] Stop: 12/09/17 08:59 Metoprolol Tartrate (Lopressor) 25 mg PO BID [facility] Stop: 12/05/17 08:59 Last Admin: 10/09/17 09:54 Dose: 25 mg Miscellaneous (Probiotic Screen) 1 ea MC PRN PRN PRN Reason: PROTOCOL Stop: 12/07/17 14:59 Miscellaneous (Probiotic Screen) 1 ea MC PRN PRN PRN Reason: PROTOCOL Stop: 12/08/17 12:29 Nitroglycerin (Nitrostat) 0.4 mg SL Q5MIN PRN PRN Reason: Chest Pain Stop: 12/04/17 21:42 Ondansetron HCl (Zofran) 4 mg IV Q8H PRN PRN Reason: Nausea / Vomiting Stop: 12/04/17 21:42 Last Admin: 10/08/17 14:59 Dose: 4 mg Zolpidem Tartrate (Ambien) 5 mg PO HS PRN PRN Reason: Insomnia Stop: 12/04/17 21:42 Last Admin: 10/06/17 03:25 Dose: 5 mg General: alert HEENT: NC/AT, PERRLA Neck: Supple Lungs: CTAB Abdomen: soft, non-tender Extremities: excoriation Neurological: alert Internal Medicine Assmt/Plan - Assessment Assessment: bilateral lower ext cellulitis htn esrd dm2 vomiting - Plan Plan: dc planning in am if stable. continue with hd continue ivabx follow up labs in am continue current plan of care Nutritional Asmnt/Malnutr-PDOC - Dietary Evaluation Malnutrition Findings (Please click <Entered> for more info): Nutritional Asmnt/Malnutrition Start: 10/06/17 17: 58 Text: Status: Complete Freq: Document 10/06/17 17:58 LCHENG (Rec: 10/06/17 18:15 LCHENG [email or web address]) Nutritional Asmnt/Malnutrition Patient General Information Nutritional Screening High Risk Diagnosis bilateral lower extremities cellulitis Pertinent Medical Hx/Surgical Hx HTN, DM, CAD, dyslipidemia, ESRD, CABG Subjective Information Pt seen lying in bed at time of visit, awake and alert. Pt reported appetite OK, ate about 50% of lunch today. She likes hot cereal, fruits and veggies, tea instead of coffee , eats few meat. per notes, Pt receives dialysis MWF. Current Diet Order/ Nutrition Support renal Pertinent Medications colace, novolog, levemir, piperacillin Pertinent Labs 10/05 Na 132, K 3.9, Cl 94, BUN 17, Cr 3.0, Glucose 230, A1c 8.6 10/06 POC 116-202 Nutritional Hx/Data Height 5 ft 2 in Height (Calculated Centimeters) 157.5 Current Weight (lbs) 165 lb Weight (Calculated Kilograms) 74.8 Weight (Calculated Grams) 42225.7 [place] Body Weight 110 % [place] Body Weight 150 Body Mass Index (BMI) 30.2 Weight Status Obese GI Symptoms GI Symptoms None Last BM no record Difficult in: None Skin Integrity/Comment: bilateral lower extremities cellulitis/redness, toes red Estimated Nutritional Goals BEE in Kcals: Adj wt of IBW Calories/Kcals/Kg 30-35 Kcals Calculated 3667-6756 Protein: Adj wt of IBW Protein g/k.2-1.4 pt on dialysis Protein Calculated 67-78 Fluid: ml [id number] or per MD order Nutritional Problem 2. Problem Problem increased nutrition needs ( protein) Etiology increased protein losses Signs/Symptoms: pt on dialysis 1. Problem Problem altered nutrition related lab values Etiology hx of DM Signs/Symptoms: Glucose 230, A1c 8.6 POC 116-202 Malnutrition Alert Protein-Calorie Malnutrition N/A Is there a minimum of two criteria No selected? Query Text:Check all the applicable criteria. A minimum of two criteria are recommended for diagnosis of either severe or non-severe malnutrition. Intervention/Recommendation Comments 1. Recommend CCHO-60gm Renal diet for optimal glycemic control. 2. If PO intake continue <75%, will consider Novasource Renal to increase protein intake 3. Monitor PO intake, wt, labs and skin integrity 4. F/U as high risk in 2-3 days, 10/08-10/09 Expected Outcomes/Goals Expected Outcomes/Goals 1. PO intake to meet at least 75% of nutritional needs. 2. Wt stability, skin to remain intact, labs to improve
--- NOTE | 2017-10-09 16:19 | General Progress Note ---
Subjective - Review of Systems Service Date: 10/09/17 Subjective: alert, less foot pain Objective - Results Result Diagrams: 10/09/17 06:20 10/09/17 06:20 Recent Labs: Laboratory Last Values WBC 6.2 Th/cmm (4.8-10.8) D 10/09/17 06:20 RBC 3.14 Mil/cmm (3.80-5.20) L 10/09/17 06:20 Hgb 11.4 gm/dL (12-16) L 10/09/17 06:20 Hct 33.6 % (41.0-60) L 10/09/17 06:20 MCV 107.2 fl (81-100) H 10/08/17 05:35 MCH 36.2 pg (27.0-31.0) H 10/09/17 06:20 MCHC Differential 33.8 pg (28.0-36.0) 10/09/17 06:20 RDW 14.6 % (11.5-20.0) 10/09/17 06:20 Plt Count 320 Th/cmm (150-400) 10/09/17 06:20 MPV 7.8 fl 10/09/17 06:20 Neutrophils % 60.8 % (40.0-80.0) 10/09/17 06:20 Band Neutrophils % 14 % (0-10) H 10/06/17 05:39 Lymphocytes % 20.6 % (20.0-50.0) 10/09/17 06:20 Monocytes % 12.1 % (2.0-10.0) H 10/09/17 06:20 Eosinophils % 5.5 % (0.0-5.0) H 10/09/17 06:20 Basophils % 1.0 % (0.0-2.0) 10/09/17 06:20 Neutrophils (Manual) 60 % (40-80) 10/06/17 05:39 Lymphocytes 17 % (20-50) L 10/06/17 05:39 Monocytes 8 % (2-10) 10/06/17 05:39 Eosinophils 1 % (0-5) 10/06/17 05:39 Platelet Estimate ADEQUATE (NORMAL) 10/06/17 05:39 Macrocytosis 1+ 10/06/17 05:39 ESR 49 mm/hr (0-30) H 10/06/17 05:39 PT 9.6 SECONDS (9.5-11.5) 10/05/17 20:20 INR 0.92 (0.5-1.4) 10/05/17 20:20 PTT (Actin FS) 22.5 SECONDS (26.0-38.0) L 10/05/17 20:20 Sodium 135 mEq/L (136-145) L 10/09/17 06:20 Potassium 3.8 mEq/L (3.5-5.1) 10/09/17 06:20 Chloride 95 mEq/L (98-107) L 10/09/17 06:20 Carbon Dioxide 27.9 mEq/L (21.0-31.0) 10/09/17 06:20 Anion Gap 15.9 (7.0-16.0) 10/09/17 06:20 BUN 34 mg/dL (7-25) H 10/09/17 06:20 Creatinine 5.6 mg/dL (0.6-1.2) H* 10/09/17 06:20 Est GFR ( Amer) TNP 10/09/17 06:20 Est GFR (Non-Af Amer) TNP 10/09/17 06:20 BUN/Creatinine Ratio 6.1 10/09/17 06:20 Glucose 120 mg/dL (70-105) H 10/09/17 06:20 POC Glucose 97 MG/DL (70 - 105) 10/07/17 07:01 Hemoglobin A1c % 8.6 % (4.0-6.0) H 10/05/17 20:20 Whole Bld Lactic Acid 0.85 mmol/L (0.60-1.99) 10/05/17 20:20 Calcium 8.7 mg/dL (8.6-10.3) 10/09/17 06:20 Magnesium 2.6 mg/dL (1.9-2.7) 10/07/17 05:51 Total Bilirubin 0.6 mg/dL (0.3-1.0) 10/05/17 20:20 AST 24 U/L (13-39) 10/05/17 20:20 ALT 17 U/L (7-52) 10/05/17 20:20 Alkaline Phosphatase 57 U/L (34-104) 10/05/17 20:20 Creatine Kinase 51 U/L (30-223) 10/05/17 20:20 Troponin I 0.04 ng/mL (0.01-0.05) 10/05/17 20:20 B-Natriuretic Peptide 733.0 pg/mL (5.0-100.0) H 10/07/17 05:51 Total Protein 6.8 gm/dL (6.0-8.3) 10/05/17 20:20 Albumin 3.8 gm/dL (3.7-5.3) 10/05/17 20:20 Globulin 3.0 gm/dL 10/05/17 20:20 Albumin/Globulin Ratio 1.3 (1.0-1.8) 10/05/17 20:20 TSH 1.32 uIU/ml (0.34-5.60) 10/06/17 05:39 Urine Source MIDSTREAM 10/05/17 20:20 Urine Color YELLOW 10/05/17 20:20 Urine Clarity CLEAR (CLEAR) 10/05/17 20:20 Urine pH 8.5 (4.6 - 8.0) 10/05/17 20:20 Ur Specific [place] 1.015 (1.005-1.030) 10/05/17 20:20 Urine Protein 100 mg/dL (NEGATIVE) H 10/05/17 20:20 Urine Glucose (UA) 100 mg/dL (NEGATIVE) H 10/05/17 20:20 Urine Ketones TRACE mg/dL (NEGATIVE) 10/05/17 20:20 Urine Blood TRACE (NEGATIVE) 10/05/17 20:20 Urine Nitrate NEGATIVE (NEGATIVE) 10/05/17 20:20 Urine Bilirubin NEGATIVE (NEGATIVE) 10/05/17 20:20 Urine Urobilinogen 0.2 E.U./dL (0.2 - 1.0) 10/05/17 20:20 Ur Leukocyte Esterase TRACE (NEGATIVE) H 10/05/17 20:20 Urine RBC 0-2 /hpf (0-5) 10/05/17 20:20 Urine WBC 2-5 /hpf (0-5) 10/05/17 20:20 Ur Epithelial Cells NONE SEEN /lpf (FEW) 10/05/17 20:20 Urine Bacteria NONE SEEN /hpf (NONE SEEN) 10/05/17 20:20 - Physical Exam Vitals and I&O: Vital Signs Temp 97 F 10/09/17 16:00 Pulse 42 10/09/17 16:00 Resp 18 10/09/17 16:00 BP 149/47 10/09/17 16:00 Pulse Ox 42 10/09/17 16:00 Intake & Output 10/08/17 10/09/17 10/09/17 18:59 06:59 18:59 Intake Total 750 500 Balance 750 500 Weight (lbs) 74.843 kg 75.296 kg Intake: Intake, IV Amount 50 100 Piperacillin Sodium/ 50 100 Tazobact 2.25 gm In Sodium Chloride 0.9% 50 ml @ 100 mls/hr IV Q8HR [facility] Rx#:[id number] Oral 700 400 Other: # Voids 3 2 # Bowel Movements 2 1 Stool Characteristics Soft Soft Soft Active Medications: Current Medications Acetaminophen (Tylenol) 650 mg PO Q4H PRN PRN Reason: Pain Or Fever above 101 Stop: 12/04/17 21:42 Last Admin: 10/07/17 17:59 Dose: 650 mg Acetaminophen/Hydrocodone Bitart ([place] 5mg/325mg) 1 tab PO Q4H PRN PRN Reason: Pain (Severe) Stop: 12/04/17 21:42 Last Admin: 10/08/17 20:30 Dose: 1 tab Albuterol Sulfate (Albuterol 2.5mg/3ml Neb Ud) 2.5 mg HHN Q2HRT PRN PRN Reason: Shortness of Breath or Wheeze Stop: 12/04/17 21:42 Amiodarone HCl (Cordarone) 200 mg PO DAILY [facility] Stop: 12/05/17 08:59 Last Admin: 10/09/17 09:53 Dose: 200 mg Aspirin (Ecotrin) 81 mg PO DAILY [facility] Stop: 12/05/17 08:59 Last Admin: 10/09/17 09:53 Dose: 81 mg Bisacodyl (Dulcolax 10 Mg Supp) 10 mg RC DAILY PRN PRN Reason: Constipation Stop: 12/05/17 13:03 Bisacodyl (Dulcolax 5 Mg Ec Tab) 10 mg PO PRN PRN PRN Reason: Constipation Stop: 12/05/17 14:57 Clopidogrel Bisulfate (Plavix) 75 mg PO DAILY [facility] Stop: 12/05/17 08:59 Last Admin: 10/09/17 09:54 Dose: 75 mg Docusate Sodium (Colace) 250 mg PO BID [facility] Stop: 12/05/17 16:59 Last Admin: 10/09/17 10:25 Dose: Not Given Guaifenesin (Robitussin) 200 mg PO Q4HR PRN PRN Reason: Cough or Congestion Stop: 12/04/17 21:42 Piperacillin Sod/Tazobactam (Sod 2.25 gm/ Sodium Chloride) 50 mls @ 100 mls/hr IV Q8HR [facility] Stop: 12/05/17 04:59 Last Admin: 10/09/17 12:07 Dose: 100 mls/hr Insulin Aspart (Novolog Insulin Sliding Scale) 0 units SUBQ ACHS [facility] PRN Reason: Protocol Stop: 12/05/17 07:29 Last Admin: 10/09/17 12:07 Dose: 2 units Insulin Detemir (Levemir Insulin) 8 units SUBQ DAILY [facility] PRN Reason: Protocol Stop: 12/05/17 08:59 Last Admin: 10/09/17 09:55 Dose: Not Given Ipratropium [place] (Atrovent Neb 0.5mg/2.5ml) 0.5 mg HHN Q2HRT PRN PRN Reason: Shortness of Breath or Wheeze Stop: 12/04/17 21:42 Lactobacillus Rhamnosus (Culturelle 15b) 1 each PO DAILY [facility] Stop: 12/08/17 08:59 Last Admin: 10/09/17 09:54 Dose: 1 each Lactobacillus Rhamnosus (Culturelle 15b) 1 each PO DAILY [facility] Stop: 12/09/17 08:59 Metoprolol Tartrate (Lopressor) 25 mg PO BID [facility] Stop: 12/05/17 08:59 Last Admin: 10/09/17 09:54 Dose: 25 mg Miscellaneous (Probiotic Screen) 1 ea MC PRN PRN PRN Reason: PROTOCOL Stop: 12/07/17 14:59 Miscellaneous (Probiotic Screen) 1 ea MC PRN PRN PRN Reason: PROTOCOL Stop: 12/08/17 12:29 Nitroglycerin (Nitrostat) 0.4 mg SL Q5MIN PRN PRN Reason: Chest Pain Stop: 12/04/17 21:42 Ondansetron HCl (Zofran) 4 mg IV Q8H PRN PRN Reason: Nausea / Vomiting Stop: 12/04/17 21:42 Last Admin: 10/08/17 14:59 Dose: 4 mg Zolpidem Tartrate (Ambien) 5 mg PO HS PRN PRN Reason: Insomnia Stop: 12/04/17 21:42 Last Admin: 10/06/17 03:25 Dose: 5 mg General: Alert, Mild distress HEENT: Atraumatic, PERRLA, EOMI, Mucous membr. moist/pink Neck: Supple, +2 carotid pulse wo bruit Cardiovascular: Regular rate, Normal S1, Normal S2 Lungs: Clear to auscultation Abdomen: Bowel sounds, Soft Extremities: Tender (erythema, tender , warm), Other, no Edema Neurological: Sensation intact Skin: no Rash Psych/Mental Status: Mood NL Assessment/Plan - Assessment Assessment: ESRD On HD B/L Ischemic Toes w/ Cellulitis CAD S/P CABG Type 2 DM Ess Htn Dyslipidemia Severe PAD - Plan Plan: Lab - Result Diagrams 10/07/17 07:37 10/07/17 05:51 Current Medications Acetaminophen (Tylenol) 650 mg PO Q4H PRN PRN Reason: Pain Or Fever above 101 Stop: 12/04/17 21:42 Acetaminophen/Hydrocodone Bitart ([place] 5mg/325mg) 1 tab PO Q4H PRN PRN Reason: Pain (Severe) Stop: 12/04/17 21:42 Albuterol Sulfate (Albuterol 2.5mg/3ml Neb Ud) 2.5 mg HHN Q2HRT PRN PRN Reason: Shortness of Breath or Wheeze Stop: 12/04/17 21:42 Amiodarone HCl (Cordarone) 200 mg PO DAILY [facility] Stop: 12/05/17 08:59 Last Admin: 10/07/17 08:30 Dose: 200 mg Aspirin (Ecotrin) 81 mg PO DAILY [facility] Stop: 12/05/17 08:59 Last Admin: 10/07/17 08:30 Dose: 81 mg Bisacodyl (Dulcolax 10 Mg Supp) 10 mg RC DAILY PRN PRN Reason: Constipation Stop: 12/05/17 13:03 Bisacodyl (Dulcolax 5 Mg Ec Tab) 10 mg PO PRN PRN PRN Reason: Constipation Stop: 12/05/17 14:57 Clopidogrel Bisulfate (Plavix) 75 mg PO DAILY [facility] Stop: 12/05/17 08:59 Last Admin: 10/07/17 08:30 Dose: 75 mg Docusate Sodium (Colace) 250 mg PO BID [facility] Stop: 12/05/17 16:59 Last Admin: 10/07/17 08:30 Dose: 250 mg Guaifenesin (Robitussin) 200 mg PO Q4HR PRN PRN Reason: Cough or Congestion Stop: 12/04/17 21:42 Heparin Sodium (Porcine) (Heparin Sodium) 0 units HD UD [facility] Stop: 10/08/17 00:00 Last Admin: 10/07/17 08:22 Dose: Not Given Piperacillin Sod/Tazobactam (Sod 2.25 gm/ Sodium Chloride) 50 mls @ 100 mls/hr IV Q8HR [facility] Stop: 12/05/17 04:59 Last Admin: 10/07/17 12:18 Dose: 100 mls/hr Insulin Aspart (Novolog Insulin Sliding Scale) 0 units SUBQ ACHS [facility] PRN Reason: Protocol Stop: 12/05/17 07:29 Last Admin: 10/07/17 11:54 Dose: 2 units Insulin Detemir (Levemir Insulin) 8 units SUBQ DAILY [facility] PRN Reason: Protocol Stop: 12/05/17 08:59 Last Admin: 10/07/17 08:30 Dose: 8 units Ipratropium [place] (Atrovent Neb 0.5mg/2.5ml) 0.5 mg HHN Q2HRT PRN PRN Reason: Shortness of Breath or Wheeze Stop: 12/04/17 21:42 Metoprolol Tartrate (Lopressor) 25 mg PO BID [facility] Stop: 12/05/17 08:59 Last Admin: 10/07/17 08:31 Dose: 25 mg Nitroglycerin (Nitrostat) 0.4 mg SL Q5MIN PRN PRN Reason: Chest Pain Stop: 12/04/17 21:42 Ondansetron HCl (Zofran) 4 mg IV Q8H PRN PRN Reason: Nausea / Vomiting Stop: 12/04/17 21:42 Zolpidem Tartrate (Ambien) 5 mg PO HS PRN PRN Reason: Insomnia Stop: 12/04/17 21:42 Last Admin: 10/06/17 03:25 Dose: 5 mg Lab - Result Diagrams 10/09/17 06:20 10/09/17 06:20 pt. was dialyzed yesterday & tolerated it well B/L foot better still w/ discoloration, tenderness on plapation WBC stable @ 6.2 Nutritional Asmnt/Malnutr-PDOC - Dietary Evaluation Malnutrition Findings (Please click <Entered> for more info): Nutritional Asmnt/Malnutrition Start: 10/06/17 17: 58 Text: Status: Complete Freq: Document 10/06/17 17:58 [facility] (Rec: 10/06/17 18:15 [email or web address] [id number]) Nutritional Asmnt/Malnutrition Patient General Information Nutritional Screening High Risk Diagnosis bilateral lower extremities cellulitis Pertinent Medical Hx/Surgical Hx HTN, DM, CAD, dyslipidemia, ESRD, CABG Subjective Information Pt seen lying in bed at time of visit, awake and alert. Pt reported appetite OK, ate about 50% of lunch today. She likes hot cereal, fruits and veggies, tea instead of coffee , eats few meat. per notes, Pt receives dialysis MWF. Current Diet Order/ Nutrition Support renal Pertinent Medications colace, novolog, levemir, piperacillin Pertinent Labs 10/05 Na 132, K 3.9, Cl 94, BUN 17, Cr 3.0, Glucose 230, A1c 8.6 10/06 POC 116-202 Nutritional Hx/Data Height 1.57 m Height (Calculated Centimeters) 157.5 Current Weight (lbs) 74.843 kg Weight (Calculated Kilograms) 74.8 Weight (Calculated Grams) 63696.7 [place] Body Weight 110 % [place] [facility] Body Weight 150 Body Mass Index (BMI) 30.2 Weight Status Obese GI Symptoms GI Symptoms None Last BM no record Difficult in: None Skin Integrity/Comment: bilateral lower extremities cellulitis/redness, toes red Estimated Nutritional Goals BEE in Kcals: Adj wt of IBW Calories/Kcals/Kg 30-35 Kcals Calculated [id number] Protein: Adj wt of IBW Protein g/k.2-1.4 pt on dialysis Protein Calculated 67-78 Fluid: ml [id number] or per MD order Nutritional Problem 2. Problem Problem increased nutrition needs ( protein) Etiology increased protein losses Signs/Symptoms: pt on dialysis 1. Problem Problem altered nutrition related lab values Etiology hx of DM Signs/Symptoms: Glucose 230, A1c 8.6 POC 116-202 Malnutrition Alert Protein-Calorie Malnutrition N/A Is there a minimum of two criteria No selected? Query Text:Check all the applicable criteria. A minimum of two criteria are recommended for diagnosis of either severe or non-severe malnutrition. Intervention/Recommendation Comments 1. Recommend CCHO-60gm Renal diet for optimal glycemic control. 2. If PO intake continue <75%, will consider Novasource Renal to increase protein intake 3. Monitor PO intake, wt, labs and skin integrity 4. F/U as high risk in 2-3 days, 10/08-10/09 Expected Outcomes/Goals Expected Outcomes/Goals 1. PO intake to meet at least 75% of nutritional needs. 2. Wt stability, skin to remain intact, labs to improve
[2017-10-09] MEDS: Hydrocodone/APAP 5mg/325mg Tab PO PRN (20:24)
[2017-10-09 23:38] LABS: MEAN CELL VOLUME 107.1 fl (81-100)
[2017-10-10 05:25] LABS: BASOPHILE ABSOLUTE 0.1 Th/cumm (0-0.2); EOSINOPHILE ABSOLUTE 0.3 Th/cmm (0.1-0.4); MONOCYTE ABSOLUTE 0.6 Th/cmm (0.3-1.0)
[2017-10-10 05:28] LABS: % BASOPHILS 1.2 % (0.0-2.0); % EOSINOPHILS 5.5 % (0.0-5.0); % LYMPHOCYTES 16.7 % (20.0-50.0); % MONOCYTES 12.7 % (2.0-10.0); % NEUTROPHILS 63.9 % (40.0-80.0); HEMATOCRIT 30.6 % (41.0-60); HEMOGLOBIN 10.2 gm/dL (12-16); LYMPHOCYTE ABSOLUTE 0.8 Th/cmm (1.5-3.0); MEAN CORPUSCULAR HEMOGLOBIN 35.8 pg (27.0-31.0); MEAN CORPUSCULAR HGB CONC 33.4 pg (28.0-36.0); MEAN PLATELET VOLUME 7.5 fl; NEUTROPHILE ABSOLUTE 3.2 Th/cmm (1.8-8.0); RED BLOOD COUNT 2.85 Mil/cmm (3.80-5.20); RED CELL DISTRIBUTION WIDTH 14.6 % (11.5-20.0)
[2017-10-10 05:30] LABS: ANION GAP 16.9 (7.0-16.0); BUN - UREA NITROGEN 46 mg/dL (7-25); CALCIUM SERUM 7.9 mg/dL (8.6-10.3); CARBON DIOXIDE 25.7 mEq/L (21.0-31.0); CHLORIDE 95 mEq/L (98-107); GLUCOSE 168 mg/dL (70-105); POTASSIUM SERUM 3.6 mEq/L (3.5-5.1); SODIUM SERUM 134 mEq/L (136-145)
[2017-10-10 05:31] LABS: MEAN CELL VOLUME 107.2 fl (81-100); PLATELET COUNT 255 Th/cmm (150-400)
[2017-10-10 05:36] LABS: CREATININE - SERUM 7.1 mg/dL (0.6-1.2)
[2017-10-10] MEDS: INSULIN ASPART SLIDING SCALE 100 UNITS/ML UNIT SUBQ SCH ×4 (06:44→21:50)
--- NOTE | 2017-10-10 07:32 | Diagnostic Imaging Report ---
Exam: Ultrasound examination abdomen. HISTORY: Vomiting. Findings: Real-time ultrasound examination abdomen performed multiple planes. The study demonstrates normal echogenicity liver parenchyma. The gallbladder has been surgically removed. The common bile duct measures 4 mm. Previous poorly seen. The right kidney measures 9.9 x 3.8 x 4.3 cm diameter. Left kidney measures 12.0 x 6.9 x 5 cm diameter contains ill-defined the hypoechoic area with the internal calcification which might represent a calculus within the cyst. The cystic area measures 2.3 x 1.7 x 2 cm diameter. The spleen is intact. No free fluid is noted. The study is limited due to large amount of intra-abdominal bowel gas. IMPRESSION: 1. Cystic structure in the left kidney measuring 2.3 x 1.7 x 2 cm diameter with internal calcification this might represent a cyst versus dilated calyx calyx with the small calculus. Clinical correlation and CT examination might be helpful.
[2017-10-10] MEDS: Lactobacillus Rhamnosus GG 15 Billion CFU CAP.SPRINK PO SCH ×2 (08:17→08:19)
[2017-10-10] MEDS: Insulin Detemir 100 units/mL 10mL Vial SUBQ SCH (08:27)
[2017-10-10] MEDS: Hydrocodone/APAP 5mg/325mg Tab PO PRN ×2 (10:42→21:49)
--- NOTE | 2017-10-10 10:42 | General Progress Note ---
Subjective - Review of Systems Service Date: 10/10/17 Events since last encounter: ARTERIAL DOPPLER - PVD LOWER EXT PLAN; CTA ORDERED Objective - Results Result Diagrams: 10/10/17 04:56 10/10/17 04:56 Recent Labs: Laboratory Last Values WBC 5.0 Th/cmm (4.8-10.8) 10/10/17 04:56 RBC 2.85 Mil/cmm (3.80-5.20) L 10/10/17 04:56 Hgb 10.2 gm/dL (12-16) L 10/10/17 04:56 Hct 30.6 % (41.0-60) L 10/10/17 04:56 MCV 107.2 fl (81-100) H 10/10/17 04:56 MCH 35.8 pg (27.0-31.0) H 10/10/17 04:56 MCHC Differential 33.4 pg (28.0-36.0) 10/10/17 04:56 RDW 14.6 % (11.5-20.0) 10/10/17 04:56 Plt Count 255 Th/cmm (150-400) D 10/10/17 04:56 MPV 7.5 fl 10/10/17 04:56 Neutrophils % 63.9 % (40.0-80.0) 10/10/17 04:56 Band Neutrophils % 14 % (0-10) H 10/06/17 05:39 Lymphocytes % 16.7 % (20.0-50.0) L 10/10/17 04:56 Monocytes % 12.7 % (2.0-10.0) H 10/10/17 04:56 Eosinophils % 5.5 % (0.0-5.0) H 10/10/17 04:56 Basophils % 1.2 % (0.0-2.0) 10/10/17 04:56 Neutrophils (Manual) 60 % (40-80) 10/06/17 05:39 Lymphocytes 17 % (20-50) L 10/06/17 05:39 Monocytes 8 % (2-10) 10/06/17 05:39 Eosinophils 1 % (0-5) 10/06/17 05:39 Platelet Estimate ADEQUATE (NORMAL) 10/06/17 05:39 Macrocytosis 1+ 10/06/17 05:39 ESR 49 mm/hr (0-30) H 10/06/17 05:39 PT 9.6 SECONDS (9.5-11.5) 10/05/17 20:20 INR 0.92 (0.5-1.4) 10/05/17 20:20 PTT (Actin FS) 22.5 SECONDS (26.0-38.0) L 10/05/17 20:20 Sodium 134 mEq/L (136-145) L 10/10/17 04:56 Potassium 3.6 mEq/L (3.5-5.1) 10/10/17 04:56 Chloride 95 mEq/L (98-107) L 10/10/17 04:56 Carbon Dioxide 25.7 mEq/L (21.0-31.0) 10/10/17 04:56 Anion Gap 16.9 (7.0-16.0) H 10/10/17 04:56 BUN 46 mg/dL (7-25) H 10/10/17 04:56 Creatinine 7.1 mg/dL (0.6-1.2) H* 10/10/17 04:56 Est GFR ( Amer) TNP 10/10/17 04:56 Est GFR (Non-Af Amer) TNP 10/10/17 04:56 BUN/Creatinine Ratio 6.5 10/10/17 04:56 Glucose 168 mg/dL (70-105) H 10/10/17 04:56 POC Glucose 112 MG/DL (70 - 105) H 10/10/17 08:22 Hemoglobin A1c % 8.6 % (4.0-6.0) H 10/05/17 20:20 Whole Bld Lactic Acid 0.85 mmol/L (0.60-1.99) 10/05/17 20:20 Calcium 7.9 mg/dL (8.6-10.3) L 10/10/17 04:56 Magnesium 2.6 mg/dL (1.9-2.7) 10/07/17 05:51 Total Bilirubin 0.6 mg/dL (0.3-1.0) 10/05/17 20:20 AST 24 U/L (13-39) 10/05/17 20:20 ALT 17 U/L (7-52) 10/05/17 20:20 Alkaline Phosphatase 57 U/L (34-104) 10/05/17 20:20 Creatine Kinase 51 U/L (30-223) 10/05/17 20:20 Troponin I 0.04 ng/mL (0.01-0.05) 10/05/17 20:20 B-Natriuretic Peptide 733.0 pg/mL (5.0-100.0) H 10/07/17 05:51 Total Protein 6.8 gm/dL (6.0-8.3) 10/05/17 20:20 Albumin 3.8 gm/dL (3.7-5.3) 10/05/17 20:20 Globulin 3.0 gm/dL 10/05/17 20:20 Albumin/Globulin Ratio 1.3 (1.0-1.8) 10/05/17 20:20 TSH 1.32 uIU/ml (0.34-5.60) 10/06/17 05:39 Urine Source MIDSTREAM 10/05/17 20:20 Urine Color YELLOW 10/05/17 20:20 Urine Clarity CLEAR (CLEAR) 10/05/17 20:20 Urine pH 8.5 (4.6 - 8.0) 10/05/17 20:20 Ur Specific [place] 1.015 (1.005-1.030) 10/05/17 20:20 Urine Protein 100 mg/dL (NEGATIVE) H 10/05/17 20:20 Urine Glucose (UA) 100 mg/dL (NEGATIVE) H 10/05/17 20:20 Urine Ketones TRACE mg/dL (NEGATIVE) 10/05/17 20:20 Urine Blood TRACE (NEGATIVE) 10/05/17 20:20 Urine Nitrate NEGATIVE (NEGATIVE) 10/05/17 20:20 Urine Bilirubin NEGATIVE (NEGATIVE) 10/05/17 20:20 Urine Urobilinogen 0.2 E.U./dL (0.2 - 1.0) 10/05/17 20:20 Ur Leukocyte Esterase TRACE (NEGATIVE) H 10/05/17 20:20 Urine RBC 0-2 /hpf (0-5) 10/05/17 20:20 Urine WBC 2-5 /hpf (0-5) 10/05/17 20:20 Ur Epithelial Cells NONE SEEN /lpf (FEW) 10/05/17 20:20 Urine Bacteria NONE SEEN /hpf (NONE SEEN) 10/05/17 20:20 - Physical Exam Vitals and I&O: Vital Signs Temp 96.0 F 10/10/17 07:52 Pulse 45 10/10/17 10:08 Resp 14 10/10/17 10:19 BP 136/40 10/10/17 08:25 Pulse Ox 95 10/10/17 10:08 Intake & Output 10/09/17 10/10/17 10/10/17 18:59 06:59 18:59 Intake Total 550 100 Balance 550 100 Weight (lbs) 75.296 kg Intake: Intake, IV Amount 50 100 Piperacillin Sodium/ 50 100 Tazobact 2.25 gm In Sodium Chloride 0.9% 50 ml @ 100 mls/hr IV Q8HR [facility] Rx#:[id number] Oral 500 Other: # Voids 3 # Bowel Movements 1 Stool Characteristics Soft Active Medications: Current Medications Acetaminophen (Tylenol) 650 mg PO Q4H PRN PRN Reason: Pain Or Fever above 101 Stop: 12/04/17 21:42 Last Admin: 10/07/17 17:59 Dose: 650 mg Acetaminophen/Hydrocodone Bitart ([place] 5mg/325mg) 1 tab PO Q4H PRN PRN Reason: Pain (Severe) Stop: 12/04/17 21:42 Last Admin: 10/09/17 20:24 Dose: 1 tab Albuterol Sulfate (Albuterol 2.5mg/3ml Neb Ud) 2.5 mg HHN Q2HRT PRN PRN Reason: Shortness of Breath or Wheeze Stop: 12/04/17 21:42 Amiodarone HCl (Cordarone) 200 mg PO DAILY [facility] Stop: 12/05/17 08:59 Last Admin: 10/10/17 08:17 Dose: 200 mg Aspirin (Ecotrin) 81 mg PO DAILY [facility] Stop: 12/05/17 08:59 Last Admin: 10/10/17 08:17 Dose: 81 mg Bisacodyl (Dulcolax 10 Mg Supp) 10 mg RC DAILY PRN PRN Reason: if not tolerate po Stop: 12/05/17 13:03 Bisacodyl (Dulcolax 5 Mg Ec Tab) 10 mg PO PRN PRN PRN Reason: Constipation Stop: 12/05/17 14:57 Clopidogrel Bisulfate (Plavix) 75 mg PO DAILY [facility] Stop: 12/05/17 08:59 Last Admin: 10/10/17 08:17 Dose: 75 mg Docusate Sodium (Colace) 250 mg PO BID [facility] Stop: 12/05/17 16:59 Last Admin: 10/10/17 08:20 Dose: Not Given Guaifenesin (Robitussin) 200 mg PO Q4HR PRN PRN Reason: Cough or Congestion Stop: 12/04/17 21:42 Piperacillin Sod/Tazobactam (Sod 2.25 gm/ Sodium Chloride) 50 mls @ 100 mls/hr IV Q8HR [facility] Stop: 12/05/17 04:59 Last Infusion: 10/10/17 06:22 Dose: Infused Insulin Aspart (Novolog Insulin Sliding Scale) 0 units SUBQ ACHS [facility] PRN Reason: Protocol Stop: 12/05/17 07:29 Last Admin: 10/10/17 06:44 Dose: Not Given Insulin Detemir (Levemir Insulin) 8 units SUBQ DAILY [facility] PRN Reason: Protocol Stop: 12/05/17 08:59 Last Admin: 10/10/17 08:27 Dose: 8 units Ipratropium Amonate (Atrovent Neb 0.5mg/2.5ml) 0.5 mg HHN Q2HRT PRN PRN Reason: Shortness of Breath or Wheeze Stop: 12/04/17 21:42 Lactobacillus Rhamnosus (Culturelle 15b) 1 each PO DAILY [facility] Stop: 12/08/17 08:59 Last Admin: 10/10/17 08:17 Dose: 1 each Lactobacillus Rhamnosus (Culturelle 15b) 1 each PO DAILY [facility] Stop: 12/09/17 08:59 Last Admin: 10/10/17 08:19 Dose: 1 each Lidocaine HCl (Xylocaine 1% 20ml Vial) 0.5 ml INJ 0900 [facility] Stop: 12/09/17 08:59 Metoprolol Tartrate (Lopressor) 25 mg PO BID [facility] Stop: 12/05/17 08:59 Last Admin: 10/10/17 08:25 Dose: Not Given Miscellaneous (Probiotic Screen) 1 ea MC PRN PRN PRN Reason: PROTOCOL Stop: 12/07/17 14:59 Miscellaneous (Probiotic Screen) 1 ea MC PRN PRN PRN Reason: PROTOCOL Stop: 12/08/17 12:29 Nitroglycerin (Nitrostat) 0.4 mg SL Q5MIN PRN PRN Reason: Chest Pain Stop: 12/04/17 21:42 Ondansetron HCl (Zofran) 4 mg IV Q8H PRN PRN Reason: Nausea / Vomiting Stop: 12/04/17 21:42 Last Admin: 10/08/17 14:59 Dose: 4 mg Zolpidem Tartrate (Ambien) 5 mg PO HS PRN PRN Reason: Insomnia Stop: 12/04/17 21:42 Last Admin: 10/10/17 01:14 Dose: 5 mg General: Alert, Mild distress HEENT: Atraumatic, PERRLA, EOMI, Mucous membr. moist/pink Neck: Supple, +2 carotid pulse wo bruit Cardiovascular: Regular rate, Normal S1, Normal S2 Lungs: Clear to auscultation Abdomen: Bowel sounds, Soft Extremities: Tender (erythema, tender , warm), Other, no Edema Neurological: Sensation intact Skin: no Rash Psych/Mental Status: Mood NL Nutritional Asmnt/Malnutr-PDOC - Dietary Evaluation Malnutrition Findings (Please click <Entered> for more info): Nutritional Asmnt/Malnutrition Start: 10/06/17 17: 58 Text: Status: Complete Freq: Document 10/06/17 17:58 JESENIA (Rec: 10/06/17 18:15 [email or web address] [email or web address]) Nutritional Asmnt/Malnutrition Patient General Information Nutritional Screening High Risk Diagnosis bilateral lower extremities cellulitis Pertinent Medical Hx/Surgical Hx HTN, DM, CAD, dyslipidemia, ESRD, CABG Subjective Information Pt seen lying in bed at time of visit, awake and alert. Pt reported appetite OK, ate about 50% of lunch today. She likes hot cereal, fruits and veggies, tea instead of coffee , eats few meat. per notes, Pt receives dialysis MWF. Current Diet Order/ Nutrition Support renal Pertinent Medications colace, novolog, levemir, piperacillin Pertinent Labs 10/05 Na 132, K 3.9, Cl 94, BUN 17, Cr 3.0, Glucose 230, A1c 8.6 10/06 POC 116-202 Nutritional Hx/Data Height 1.57 m Height (Calculated Centimeters) 157.5 Current Weight (lbs) 74.843 kg Weight (Calculated Kilograms) 74.8 Weight (Calculated Grams) 17040.7 [place] Body Weight 110 % [place] Body Weight 150 Body Mass Index (BMI) 30.2 Weight Status Obese GI Symptoms GI Symptoms None Last BM no record Difficult in: None Skin Integrity/Comment: bilateral lower extremities cellulitis/redness, toes red Estimated Nutritional Goals BEE in Kcals: Adj wt of IBW Calories/Kcals/Kg 30-35 Kcals Calculated 4666-6922 Protein: Adj wt of IBW Protein g/k.2-1.4 pt on dialysis Protein Calculated 67-78 Fluid: ml [id number] or per MD order Nutritional Problem 2. Problem Problem increased nutrition needs ( protein) Etiology increased protein losses Signs/Symptoms: pt on dialysis 1. Problem Problem altered nutrition related lab values Etiology hx of DM Signs/Symptoms: Glucose 230, A1c 8.6 POC 116-202 Malnutrition Alert Protein-Calorie Malnutrition N/A Is there a minimum of two criteria No selected? Query Text:Check all the applicable criteria. A minimum of two criteria are recommended for diagnosis of either severe or non-severe malnutrition. Intervention/Recommendation Comments 1. Recommend CCHO-60gm Renal diet for optimal glycemic control. 2. If PO intake continue <75%, will consider Novasource Renal to increase protein intake 3. Monitor PO intake, wt, labs and skin integrity 4. F/U as high risk in 2-3 days, 10/08-10/09 Expected Outcomes/Goals Expected Outcomes/Goals 1. PO intake to meet at least 75% of nutritional needs. 2. Wt stability, skin to remain intact, labs to improve
--- NOTE | 2017-10-10 11:06 | Consultation ---
DATE OF CONSULTATION: 10/08/2017 VASCULAR CONSULTATION REFERRING PHYSICIAN: Dr. Lowery. REASON FOR CONSULTATION: Swelling and pain, both feet. Thank you for referring this patient to me. HISTORY OF PRESENT ILLNESS: This is a 71-year-old female, who comes in because of increasing pain and purplish discoloration of both feet. She claimed pain was mostly on the left toes. PAST MEDICAL HISTORY: Includes end-stage renal disease on hemodialysis, coronary artery disease, type 2 diabetes, hypertension, and dyslipidemia. She had a coronary bypass graft in 2014 and Jay fistula in the left arm. LABORATORY DATA: The laboratory studies show the CBC to be within normal limits. Chemistry: The BUN is 22, creatinine of 4, blood sugar is 112 and repeat is 249. DIAGNOSTIC STUDIES: The patient underwent Doppler study of the lower extremities and this shows severe peripheral vascular disease below the knees. She claims she underwent Doppler study 3 weeks ago in [place], the results of which we cannot obtain. PHYSICAL EXAMINATION: The patient speaks Czech. She complains of pain in both feet; when first seen, on the left toes, now she is claiming more on the right toes. The right forefoot and toes are purplish. There are no palpable pedal pulses bilaterally. There is minimal swelling at this point. IMPRESSION: Severe peripheral vascular disease, bilateral lower extremities. RECOMMENDATIONS: Suggest CT angiogram to find out exactly how much vascular disease is present and if a bypass can be done to improve circulation distally. [facility]# [id number]
[2017-10-10] MEDS ORDERED: IOHEXOL 350mgI/mL 150mL IV ONE (11:46)
--- NOTE | 2017-10-10 14:09 | Diagnostic Imaging Report ---
CT angiogram of the bilateral lower extremities with IV contrast History: Peripheral vascular disease Comparison: Bilateral lower arterial Doppler on 10/06/2017 Technique/procedure: Axial images were obtained from the bilateral mid abdominal aorta the bilateral lobectomies with IV contrast, angiogram protocol. Multiplanar reconstructions were made. Total DLP 804, CTD I 29 Findings: There is a moderate sized ventral hernia is seen along the right hemiabdomen. Fluid-filled loops of bowel are noted. An infrarenal IVC filter is noted. No evidence of free fluid or free air. Degenerative changes of the spine and bilateral lower extremities are noted. There is evidence of prior cholecystectomy. Findings: Diffuse atherosclerotic vascular disease of the abdominal aorta and branches are noted within calcified and soft plaque formation. There is 15% narrowing along the origin of the celiac artery. There is 5-10% narrowing along the origin of the superior mesenteric artery. There is 30% narrowing along the origin of the right renal artery. There is also estimated 30% narrowing along the margin of the left renal artery with diffuse atherosclerotic vascular disease seen bilaterally throughout the renal arteries. Calcified and soft plaque of the distal abdominal aorta is noted. There is also estimated 50% plaque formation origin of the inferior mesenteric artery. Atherosclerotic vascular disease of the distal branches of the superior and inferior mesenteric arteries are also noted. Diffuse calcified and soft plaque is seen throughout the iliac vasculature bilaterally greatest within the right side with ectasia of the right common iliac artery measuring up to 1.9 cm. Diffuse atherosclerotic vascular disease of the bilateral external and internal iliac arteries are noted. Right: There is diffuse atherosclerotic vascular the right common femoral and right superficial femoral artery with areas of up to 40% narrowing seen within the right superficial femoral artery. There are also focal area of 40-50 percent narrowing seen along the distal superficial femoral artery (image 185, series 4). Diffuse atherosclerotic vascular disease of the popliteal artery and branches are noted. Extensive atherosclerosis is seen distally with good opacification of right anterior tibial artery. There is a decreased opacification of posterior tibial arteries is noted. A diminutive peroneal artery is noted. Left: Diffuse atherosclerotic vascular disease of the left common femoral artery is noted with areas of up to 30% vessel narrowing seen along the proximal portion. Additional more focalized calcified soft plaque of the distal left femoral artery common femoral arteries noted with estimated 40-50% narrowing. Good opacification of the anterior tibial artery is noted. Generalized diffuse opacification diffuse atherosclerosis of the posterior tibial artery is noted. A diminutive peroneal artery is noted. IMPRESSION: Extensive and diffuse atherosclerotic vascular disease as detailed above with areas of up to 40-50% narrowing greatest within the distal common femoral arteries. Please refer to above report for complete details. Moderate size right-sided ventral hernia. IVC filter.
--- NOTE | 2017-10-10 14:33 | General Progress Note ---
Subjective - Review of Systems Service Date: 10/10/17 Subjective: alert, still w/ foot pain Objective - Results Result Diagrams: 10/10/17 04:56 10/10/17 04:56 Recent Labs: Laboratory Last Values WBC 5.0 Th/cmm (4.8-10.8) 10/10/17 04:56 RBC 2.85 Mil/cmm (3.80-5.20) L 10/10/17 04:56 Hgb 10.2 gm/dL (12-16) L 10/10/17 04:56 Hct 30.6 % (41.0-60) L 10/10/17 04:56 MCV 107.2 fl (81-100) H 10/10/17 04:56 MCH 35.8 pg (27.0-31.0) H 10/10/17 04:56 MCHC Differential 33.4 pg (28.0-36.0) 10/10/17 04:56 RDW 14.6 % (11.5-20.0) 10/10/17 04:56 Plt Count 255 Th/cmm (150-400) D 10/10/17 04:56 MPV 7.5 fl 10/10/17 04:56 Neutrophils % 63.9 % (40.0-80.0) 10/10/17 04:56 Band Neutrophils % 14 % (0-10) H 10/06/17 05:39 Lymphocytes % 16.7 % (20.0-50.0) L 10/10/17 04:56 Monocytes % 12.7 % (2.0-10.0) H 10/10/17 04:56 Eosinophils % 5.5 % (0.0-5.0) H 10/10/17 04:56 Basophils % 1.2 % (0.0-2.0) 10/10/17 04:56 Neutrophils (Manual) 60 % (40-80) 10/06/17 05:39 Lymphocytes 17 % (20-50) L 10/06/17 05:39 Monocytes 8 % (2-10) 10/06/17 05:39 Eosinophils 1 % (0-5) 10/06/17 05:39 Platelet Estimate ADEQUATE (NORMAL) 10/06/17 05:39 Macrocytosis 1+ 10/06/17 05:39 ESR 49 mm/hr (0-30) H 10/06/17 05:39 PT 9.6 SECONDS (9.5-11.5) 10/05/17 20:20 INR 0.92 (0.5-1.4) 10/05/17 20:20 PTT (Actin FS) 22.5 SECONDS (26.0-38.0) L 10/05/17 20:20 Sodium 134 mEq/L (136-145) L 10/10/17 04:56 Potassium 3.6 mEq/L (3.5-5.1) 10/10/17 04:56 Chloride 95 mEq/L (98-107) L 10/10/17 04:56 Carbon Dioxide 25.7 mEq/L (21.0-31.0) 10/10/17 04:56 Anion Gap 16.9 (7.0-16.0) H 10/10/17 04:56 BUN 46 mg/dL (7-25) H 10/10/17 04:56 Creatinine 7.1 mg/dL (0.6-1.2) H* 10/10/17 04:56 Est GFR ( Amer) TNP 10/10/17 04:56 Est GFR (Non-Af Amer) TNP 10/10/17 04:56 BUN/Creatinine Ratio 6.5 10/10/17 04:56 Glucose 168 mg/dL (70-105) H 10/10/17 04:56 POC Glucose 133 MG/DL (70 - 105) H 10/10/17 12:01 Hemoglobin A1c % 8.6 % (4.0-6.0) H 10/05/17 20:20 Whole Bld Lactic Acid 0.85 mmol/L (0.60-1.99) 10/05/17 20:20 Calcium 7.9 mg/dL (8.6-10.3) L 10/10/17 04:56 Magnesium 2.6 mg/dL (1.9-2.7) 10/07/17 05:51 Total Bilirubin 0.6 mg/dL (0.3-1.0) 10/05/17 20:20 AST 24 U/L (13-39) 10/05/17 20:20 ALT 17 U/L (7-52) 10/05/17 20:20 Alkaline Phosphatase 57 U/L (34-104) 10/05/17 20:20 Creatine Kinase 51 U/L (30-223) 10/05/17 20:20 Troponin I 0.04 ng/mL (0.01-0.05) 10/05/17 20:20 B-Natriuretic Peptide 733.0 pg/mL (5.0-100.0) H 10/07/17 05:51 Total Protein 6.8 gm/dL (6.0-8.3) 10/05/17 20:20 Albumin 3.8 gm/dL (3.7-5.3) 10/05/17 20:20 Globulin 3.0 gm/dL 10/05/17 20:20 Albumin/Globulin Ratio 1.3 (1.0-1.8) 10/05/17 20:20 TSH 3.62 uIU/ml (0.34-5.60) 10/10/17 04:56 Urine Source MIDSTREAM 10/05/17 20:20 Urine Color YELLOW 10/05/17 20:20 Urine Clarity CLEAR (CLEAR) 10/05/17 20:20 Urine pH 8.5 (4.6 - 8.0) 10/05/17 20:20 Ur Specific [facility] 1.015 (1.005-1.030) 10/05/17 20:20 Urine Protein 100 mg/dL (NEGATIVE) H 10/05/17 20:20 Urine Glucose (UA) 100 mg/dL (NEGATIVE) H 10/05/17 20:20 Urine Ketones TRACE mg/dL (NEGATIVE) 10/05/17 20:20 Urine Blood TRACE (NEGATIVE) 10/05/17 20:20 Urine Nitrate NEGATIVE (NEGATIVE) 10/05/17 20:20 Urine Bilirubin NEGATIVE (NEGATIVE) 10/05/17 20:20 Urine Urobilinogen 0.2 E.U./dL (0.2 - 1.0) 10/05/17 20:20 Ur Leukocyte Esterase TRACE (NEGATIVE) H 10/05/17 20:20 Urine RBC 0-2 /hpf (0-5) 10/05/17 20:20 Urine WBC 2-5 /hpf (0-5) 10/05/17 20:20 Ur Epithelial Cells NONE SEEN /lpf (FEW) 10/05/17 20:20 Urine Bacteria NONE SEEN /hpf (NONE SEEN) 10/05/17 20:20 - Physical Exam Vitals and I&O: Vital Signs Temp 97.0 F 10/10/17 12:03 Pulse 43 10/10/17 12:03 Resp 18 10/10/17 13:19 BP 155/45 10/10/17 12:03 Pulse Ox 98 10/10/17 12:03 Intake & Output 10/09/17 10/10/17 10/10/17 18:59 06:59 18:59 Intake Total 550 100 Balance 550 100 Weight (lbs) 75.296 kg Intake: Intake, IV Amount 50 100 Piperacillin Sodium/ 50 100 Tazobact 2.25 gm In Sodium Chloride 0.9% 50 ml @ 100 mls/hr IV Q8HR [facility] Rx#:[id number] Oral 500 Other: # Voids 3 # Bowel Movements 1 Stool Characteristics Soft Soft Active Medications: Current Medications Acetaminophen (Tylenol) 650 mg PO Q4H PRN PRN Reason: Pain Or Fever above 101 Stop: 12/04/17 21:42 Last Admin: 10/07/17 17:59 Dose: 650 mg Acetaminophen/Hydrocodone Bitart ([place] 5mg/325mg) 1 tab PO Q4H PRN PRN Reason: Pain (Severe) Stop: 12/04/17 21:42 Last Admin: 10/10/17 10:42 Dose: 1 tab Albuterol Sulfate (Albuterol 2.5mg/3ml Neb Ud) 2.5 mg HHN Q2HRT PRN PRN Reason: Shortness of Breath or Wheeze Stop: 12/04/17 21:42 Aspirin (Ecotrin) 81 mg PO DAILY [facility] Stop: 12/05/17 08:59 Last Admin: 10/10/17 08:17 Dose: 81 mg Bisacodyl (Dulcolax 10 Mg Supp) 10 mg RC DAILY PRN PRN Reason: if not tolerate po Stop: 12/05/17 13:03 Bisacodyl (Dulcolax 5 Mg Ec Tab) 10 mg PO PRN PRN PRN Reason: Constipation Stop: 12/05/17 14:57 Clopidogrel Bisulfate (Plavix) 75 mg PO DAILY [facility] Stop: 12/05/17 08:59 Last Admin: 10/10/17 08:17 Dose: 75 mg Docusate Sodium (Colace) 250 mg PO BID [facility] Stop: 12/05/17 16:59 Last Admin: 10/10/17 08:20 Dose: Not Given Guaifenesin (Robitussin) 200 mg PO Q4HR PRN PRN Reason: Cough or Congestion Stop: 12/04/17 21:42 Heparin Sodium (Porcine) (Heparin) 5,000 units SUBQ X1 ONE Stop: 10/10/17 17:01 Piperacillin Sod/Tazobactam (Sod 2.25 gm/ Sodium Chloride) 50 mls @ 100 mls/hr IV Q8HR [facility] Stop: 12/05/17 04:59 Last Admin: 10/10/17 13:32 Dose: 100 mls/hr Insulin Aspart (Novolog Insulin Sliding Scale) 0 units SUBQ ACHS [facility] PRN Reason: Protocol Stop: 12/05/17 07:29 Last Admin: 10/10/17 12:05 Dose: Not Given Insulin Detemir (Levemir Insulin) 8 units SUBQ DAILY [facility] PRN Reason: Protocol Stop: 12/05/17 08:59 Last Admin: 10/10/17 08:27 Dose: 8 units Ipratropium [place] (Atrovent Neb 0.5mg/2.5ml) 0.5 mg HHN Q2HRT PRN PRN Reason: Shortness of Breath or Wheeze Stop: 12/04/17 21:42 Lactobacillus Rhamnosus (Culturelle 15b) 1 each PO DAILY [facility] Stop: 12/09/17 08:59 Last Admin: 10/10/17 08:19 Dose: 1 each Lidocaine HCl (Xylocaine 1% 20ml Vial) 0.5 ml INJ 0900 [facility] Stop: 12/09/17 08:59 Metoprolol Tartrate (Lopressor) 25 mg PO BID [facility] Stop: 12/05/17 08:59 Last Admin: 10/10/17 08:25 Dose: Not Given Miscellaneous (Probiotic Screen) 1 ea MC PRN PRN PRN Reason: PROTOCOL Stop: 12/07/17 14:59 Miscellaneous (Probiotic Screen) 1 ea MC PRN PRN PRN Reason: PROTOCOL Stop: 12/08/17 12:29 Nitroglycerin (Nitrostat) 0.4 mg SL Q5MIN PRN PRN Reason: Chest Pain Stop: 12/04/17 21:42 Ondansetron HCl (Zofran) 4 mg IV Q8H PRN PRN Reason: Nausea / Vomiting Stop: 12/04/17 21:42 Last Admin: 10/08/17 14:59 Dose: 4 mg Zolpidem Tartrate (Ambien) 5 mg PO HS PRN PRN Reason: Insomnia Stop: 12/04/17 21:42 Last Admin: 10/10/17 01:14 Dose: 5 mg General: Alert, Mild distress HEENT: Atraumatic, PERRLA, EOMI, Mucous membr. moist/pink Neck: Supple, +2 carotid pulse wo bruit Cardiovascular: Regular rate, Normal S1, Normal S2 Lungs: Clear to auscultation Abdomen: Bowel sounds, Soft Extremities: Tender (erythema, tender , warm), Other, no Edema Neurological: Sensation intact Skin: no Rash Psych/Mental Status: Mood NL Assessment/Plan - Assessment Assessment: ESRD On HD B/L Ischemic Toes w/ Cellulitis CAD S/P CABG Type 2 DM Ess Htn Dyslipidemia Severe PAD - Plan Plan: Lab - Result Diagrams 10/07/17 07:37 10/07/17 05:51 Current Medications Acetaminophen (Tylenol) 650 mg PO Q4H PRN PRN Reason: Pain Or Fever above 101 Stop: 12/04/17 21:42 Acetaminophen/Hydrocodone Bitart ([place] 5mg/325mg) 1 tab PO Q4H PRN PRN Reason: Pain (Severe) Stop: 12/04/17 21:42 Albuterol Sulfate (Albuterol 2.5mg/3ml Neb Ud) 2.5 mg HHN Q2HRT PRN PRN Reason: Shortness of Breath or Wheeze Stop: 12/04/17 21:42 Amiodarone HCl (Cordarone) 200 mg PO DAILY [facility] Stop: 12/05/17 08:59 Last Admin: 10/07/17 08:30 Dose: 200 mg Aspirin (Ecotrin) 81 mg PO DAILY [facility] Stop: 12/05/17 08:59 Last Admin: 10/07/17 08:30 Dose: 81 mg Bisacodyl (Dulcolax 10 Mg Supp) 10 mg RC DAILY PRN PRN Reason: Constipation Stop: 12/05/17 13:03 Bisacodyl (Dulcolax 5 Mg Ec Tab) 10 mg PO PRN PRN PRN Reason: Constipation Stop: 12/05/17 14:57 Clopidogrel Bisulfate (Plavix) 75 mg PO DAILY [facility] Stop: 12/05/17 08:59 Last Admin: 10/07/17 08:30 Dose: 75 mg Docusate Sodium (Colace) 250 mg PO BID [facility] Stop: 12/05/17 16:59 Last Admin: 10/07/17 08:30 Dose: 250 mg Guaifenesin (Robitussin) 200 mg PO Q4HR PRN PRN Reason: Cough or Congestion Stop: 12/04/17 21:42 Heparin Sodium (Porcine) (Heparin Sodium) 0 units HD UD [facility] Stop: 10/08/17 00:00 Last Admin: 10/07/17 08:22 Dose: Not Given Piperacillin Sod/Tazobactam (Sod 2.25 gm/ Sodium Chloride) 50 mls @ 100 mls/hr IV Q8HR [facility] Stop: 12/05/17 04:59 Last Admin: 10/07/17 12:18 Dose: 100 mls/hr Insulin Aspart (Novolog Insulin Sliding Scale) 0 units SUBQ ACHS [facility] PRN Reason: Protocol Stop: 12/05/17 07:29 Last Admin: 10/07/17 11:54 Dose: 2 units Insulin Detemir (Levemir Insulin) 8 units SUBQ DAILY [facility] PRN Reason: Protocol Stop: 12/05/17 08:59 Last Admin: 10/07/17 08:30 Dose: 8 units Ipratropium [place] (Atrovent Neb 0.5mg/2.5ml) 0.5 mg HHN Q2HRT PRN PRN Reason: Shortness of Breath or Wheeze Stop: 12/04/17 21:42 Metoprolol Tartrate (Lopressor) 25 mg PO BID [facility] Stop: 12/05/17 08:59 Last Admin: 10/07/17 08:31 Dose: 25 mg Nitroglycerin (Nitrostat) 0.4 mg SL Q5MIN PRN PRN Reason: Chest Pain Stop: 12/04/17 21:42 Ondansetron HCl (Zofran) 4 mg IV Q8H PRN PRN Reason: Nausea / Vomiting Stop: 12/04/17 21:42 Zolpidem Tartrate (Ambien) 5 mg PO HS PRN PRN Reason: Insomnia Stop: 12/04/17 21:42 Last Admin: 10/06/17 03:25 Dose: 5 mg Lab - Result Diagrams 10/10/17 04:56 10/10/17 04:56 pt. was dialyzed yesterday & tolerated it well B/L foot better still w/ discoloration, tenderness on plapation CTA extensive vascular ds for HD today Nutritional Asmnt/Malnutr-PDOC - Dietary Evaluation Malnutrition Findings (Please click <Entered> for more info): Nutritional Asmnt/Malnutrition Start: 10/06/17 17: 58 Text: Status: Complete Freq: Document 10/06/17 17:58 VENU (Rec: 10/06/17 18:15 [id number]) Nutritional Asmnt/Malnutrition Patient General Information Nutritional Screening High Risk Diagnosis bilateral lower extremities cellulitis Pertinent Medical Hx/Surgical Hx HTN, DM, CAD, dyslipidemia, ESRD, CABG Subjective Information Pt seen lying in bed at time of visit, awake and alert. Pt reported appetite OK, ate about 50% of lunch today. She likes hot cereal, fruits and veggies, tea instead of coffee , eats few meat. per notes, Pt receives dialysis MWF. Current Diet Order/ Nutrition Support renal Pertinent Medications colace, novolog, levemir, piperacillin Pertinent Labs 10/05 Na 132, K 3.9, Cl 94, BUN 17, Cr 3.0, Glucose 230, A1c 8.6 10/06 POC 116-202 Nutritional Hx/Data Height 1.57 m Height (Calculated Centimeters) 157.5 Current Weight (lbs) 74.843 kg Weight (Calculated Kilograms) 74.8 Weight (Calculated Grams) 40408.7 [place] Body Weight 110 % [place] Body Weight 150 Body Mass Index (BMI) 30.2 Weight Status Obese GI Symptoms GI Symptoms None Last BM no record Difficult in: None Skin Integrity/Comment: bilateral lower extremities cellulitis/redness, toes red Estimated Nutritional Goals BEE in Kcals: Adj wt of IBW Calories/Kcals/Kg 30-35 Kcals Calculated 5837-9811 Protein: Adj wt of IBW Protein g/k.2-1.4 pt on dialysis Protein Calculated 67-78 Fluid: ml [id number] or per MD order Nutritional Problem 2. Problem Problem increased nutrition needs ( protein) Etiology increased protein losses Signs/Symptoms: pt on dialysis 1. Problem Problem altered nutrition related lab values Etiology hx of DM Signs/Symptoms: Glucose 230, A1c 8.6 POC 116-202 Malnutrition Alert Protein-Calorie Malnutrition N/A Is there a minimum of two criteria No selected? Query Text:Check all the applicable criteria. A minimum of two criteria are recommended for diagnosis of either severe or non-severe malnutrition. Intervention/Recommendation Comments 1. Recommend CCHO-60gm Renal diet for optimal glycemic control. 2. If PO intake continue <75%, will consider Novasource Renal to increase protein intake 3. Monitor PO intake, wt, labs and skin integrity 4. F/U as high risk in 2-3 days, 10/08-10/09 Expected Outcomes/Goals Expected Outcomes/Goals 1. PO intake to meet at least 75% of nutritional needs. 2. Wt stability, skin to remain intact, labs to improve
--- NOTE | 2017-10-10 15:34 | Internal Medicine Prog Note ---
Internal Medicine Subjective - Subjective Patient seen and examined:: with staff, chart reviewed Patient is:: awake, verbal Patient Complaints of:: congestion, constipation Per staff patient has:: no adverse event, no episodes of fall, tolerating meds Internal Medicine Objective - Results Result Diagrams: 10/10/17 04:56 10/10/17 04:56 Recent Labs: Laboratory Last Values WBC 5.0 Th/cmm (4.8-10.8) 10/10/17 04:56 RBC 2.85 Mil/cmm (3.80-5.20) L 10/10/17 04:56 Hgb 10.2 gm/dL (12-16) L 10/10/17 04:56 Hct 30.6 % (41.0-60) L 10/10/17 04:56 MCV 107.2 fl (81-100) H 10/10/17 04:56 MCH 35.8 pg (27.0-31.0) H 10/10/17 04:56 MCHC Differential 33.4 pg (28.0-36.0) 10/10/17 04:56 RDW 14.6 % (11.5-20.0) 10/10/17 04:56 Plt Count 255 Th/cmm (150-400) D 10/10/17 04:56 MPV 7.5 fl 10/10/17 04:56 Neutrophils % 63.9 % (40.0-80.0) 10/10/17 04:56 Band Neutrophils % 14 % (0-10) H 10/06/17 05:39 Lymphocytes % 16.7 % (20.0-50.0) L 10/10/17 04:56 Monocytes % 12.7 % (2.0-10.0) H 10/10/17 04:56 Eosinophils % 5.5 % (0.0-5.0) H 10/10/17 04:56 Basophils % 1.2 % (0.0-2.0) 10/10/17 04:56 Neutrophils (Manual) 60 % (40-80) 10/06/17 05:39 Lymphocytes 17 % (20-50) L 10/06/17 05:39 Monocytes 8 % (2-10) 10/06/17 05:39 Eosinophils 1 % (0-5) 10/06/17 05:39 Platelet Estimate ADEQUATE (NORMAL) 10/06/17 05:39 Macrocytosis 1+ 10/06/17 05:39 ESR 49 mm/hr (0-30) H 10/06/17 05:39 PT 9.6 SECONDS (9.5-11.5) 10/05/17 20:20 INR 0.92 (0.5-1.4) 10/05/17 20:20 PTT (Actin FS) 22.5 SECONDS (26.0-38.0) L 10/05/17 20:20 Sodium 134 mEq/L (136-145) L 10/10/17 04:56 Potassium 3.6 mEq/L (3.5-5.1) 10/10/17 04:56 Chloride 95 mEq/L (98-107) L 10/10/17 04:56 Carbon Dioxide 25.7 mEq/L (21.0-31.0) 10/10/17 04:56 Anion Gap 16.9 (7.0-16.0) H 10/10/17 04:56 BUN 46 mg/dL (7-25) H 10/10/17 04:56 Creatinine 7.1 mg/dL (0.6-1.2) H* 10/10/17 04:56 Est GFR ( Amer) TNP 10/10/17 04:56 Est GFR (Non-Af Amer) TNP 10/10/17 04:56 BUN/Creatinine Ratio 6.5 10/10/17 04:56 Glucose 168 mg/dL (70-105) H 10/10/17 04:56 POC Glucose 133 MG/DL (70 - 105) H 10/10/17 12:01 Hemoglobin A1c % 8.6 % (4.0-6.0) H 10/05/17 20:20 Whole Bld Lactic Acid 0.85 mmol/L (0.60-1.99) 10/05/17 20:20 Calcium 7.9 mg/dL (8.6-10.3) L 10/10/17 04:56 Magnesium 2.6 mg/dL (1.9-2.7) 10/07/17 05:51 Total Bilirubin 0.6 mg/dL (0.3-1.0) 10/05/17 20:20 AST 24 U/L (13-39) 10/05/17 20:20 ALT 17 U/L (7-52) 10/05/17 20:20 Alkaline Phosphatase 57 U/L (34-104) 10/05/17 20:20 Creatine Kinase 51 U/L (30-223) 10/05/17 20:20 Troponin I 0.04 ng/mL (0.01-0.05) 10/05/17 20:20 B-Natriuretic Peptide 733.0 pg/mL (5.0-100.0) H 10/07/17 05:51 Total Protein 6.8 gm/dL (6.0-8.3) 10/05/17 20:20 Albumin 3.8 gm/dL (3.7-5.3) 10/05/17 20:20 Globulin 3.0 gm/dL 10/05/17 20:20 Albumin/Globulin Ratio 1.3 (1.0-1.8) 10/05/17 20:20 TSH 3.62 uIU/ml (0.34-5.60) 10/10/17 04:56 Urine Source MIDSTREAM 10/05/17 20:20 Urine Color YELLOW 10/05/17 20:20 Urine Clarity CLEAR (CLEAR) 10/05/17 20:20 Urine pH 8.5 (4.6 - 8.0) 10/05/17 20:20 Ur Specific [place] 1.015 (1.005-1.030) 10/05/17 20:20 Urine Protein 100 mg/dL (NEGATIVE) H 10/05/17 20:20 Urine Glucose (UA) 100 mg/dL (NEGATIVE) H 10/05/17 20:20 Urine Ketones TRACE mg/dL (NEGATIVE) 10/05/17 20:20 Urine Blood TRACE (NEGATIVE) 10/05/17 20:20 Urine Nitrate NEGATIVE (NEGATIVE) 10/05/17 20:20 Urine Bilirubin NEGATIVE (NEGATIVE) 10/05/17 20:20 Urine Urobilinogen 0.2 E.U./dL (0.2 - 1.0) 10/05/17 20:20 Ur Leukocyte Esterase TRACE (NEGATIVE) H 10/05/17 20:20 Urine RBC 0-2 /hpf (0-5) 10/05/17 20:20 Urine WBC 2-5 /hpf (0-5) 10/05/17 20:20 Ur Epithelial Cells NONE SEEN /lpf (FEW) 10/05/17 20:20 Urine Bacteria NONE SEEN /hpf (NONE SEEN) 10/05/17 20:20 - Physical Exam Vitals and I&O: Vital Signs Temp 97.0 F 10/10/17 12:03 Pulse 43 10/10/17 12:03 Resp 18 10/10/17 13:19 BP 155/45 10/10/17 12:03 Pulse Ox 98 10/10/17 12:03 Intake & Output 10/09/17 10/10/17 10/10/17 18:59 06:59 18:59 Intake Total 550 100 Balance 550 100 Weight (lbs) 75.296 kg Intake: Intake, IV Amount 50 100 Piperacillin Sodium/ 50 100 Tazobact 2.25 gm In Sodium Chloride 0.9% 50 ml @ 100 mls/hr IV Q8HR [facility] Rx#:[id number] Oral 500 Other: # Voids 3 # Bowel Movements 1 Stool Characteristics Soft Soft Active Medications: Current Medications Acetaminophen (Tylenol) 650 mg PO Q4H PRN PRN Reason: Pain Or Fever above 101 Stop: 12/04/17 21:42 Last Admin: 10/07/17 17:59 Dose: 650 mg Acetaminophen/Hydrocodone Bitart ([place] 5mg/325mg) 1 tab PO Q4H PRN PRN Reason: Pain (Severe) Stop: 12/04/17 21:42 Last Admin: 10/10/17 10:42 Dose: 1 tab Albuterol Sulfate (Albuterol 2.5mg/3ml Neb Ud) 2.5 mg HHN Q2HRT PRN PRN Reason: Shortness of Breath or Wheeze Stop: 12/04/17 21:42 Aspirin (Ecotrin) 81 mg PO DAILY [facility] Stop: 12/05/17 08:59 Last Admin: 10/10/17 08:17 Dose: 81 mg Bisacodyl (Dulcolax 10 Mg Supp) 10 mg RC DAILY PRN PRN Reason: if not tolerate po Stop: 12/05/17 13:03 Bisacodyl (Dulcolax 5 Mg Ec Tab) 10 mg PO PRN PRN PRN Reason: Constipation Stop: 12/05/17 14:57 Clopidogrel Bisulfate (Plavix) 75 mg PO DAILY [facility] Stop: 12/05/17 08:59 Last Admin: 10/10/17 08:17 Dose: 75 mg Docusate Sodium (Colace) 250 mg PO BID [facility] Stop: 12/05/17 16:59 Last Admin: 10/10/17 08:20 Dose: Not Given Guaifenesin (Robitussin) 200 mg PO Q4HR PRN PRN Reason: Cough or Congestion Stop: 12/04/17 21:42 Heparin Sodium (Porcine) (Heparin) 5,000 units SUBQ X1 ONE Stop: 10/10/17 17:01 Piperacillin Sod/Tazobactam (Sod 2.25 gm/ Sodium Chloride) 50 mls @ 100 mls/hr IV Q8HR [facility] Stop: 12/05/17 04:59 Last Admin: 10/10/17 13:32 Dose: 100 mls/hr Insulin Aspart (Novolog Insulin Sliding Scale) 0 units SUBQ ACHS [facility] PRN Reason: Protocol Stop: 12/05/17 07:29 Last Admin: 10/10/17 12:05 Dose: Not Given Insulin Detemir (Levemir Insulin) 8 units SUBQ DAILY [facility] PRN Reason: Protocol Stop: 12/05/17 08:59 Last Admin: 10/10/17 08:27 Dose: 8 units Ipratropium [place] (Atrovent Neb 0.5mg/2.5ml) 0.5 mg HHN Q2HRT PRN PRN Reason: Shortness of Breath or Wheeze Stop: 12/04/17 21:42 Lactobacillus Rhamnosus (Culturelle 15b) 1 each PO DAILY [facility] Stop: 12/09/17 08:59 Last Admin: 10/10/17 08:19 Dose: 1 each Lidocaine HCl (Xylocaine 1% 20ml Vial) 0.5 ml INJ 0900 [facility] Stop: 12/09/17 08:59 Metoprolol Tartrate (Lopressor) 25 mg PO BID [facility] Stop: 12/05/17 08:59 Last Admin: 10/10/17 08:25 Dose: Not Given Miscellaneous (Probiotic Screen) 1 ea MC PRN PRN PRN Reason: PROTOCOL Stop: 12/07/17 14:59 Miscellaneous (Probiotic Screen) 1 ea MC PRN PRN PRN Reason: PROTOCOL Stop: 12/08/17 12:29 Nitroglycerin (Nitrostat) 0.4 mg SL Q5MIN PRN PRN Reason: Chest Pain Stop: 12/04/17 21:42 Ondansetron HCl (Zofran) 4 mg IV Q8H PRN PRN Reason: Nausea / Vomiting Stop: 12/04/17 21:42 Last Admin: 10/08/17 14:59 Dose: 4 mg Zolpidem Tartrate (Ambien) 5 mg PO HS PRN PRN Reason: Insomnia Stop: 12/04/17 21:42 Last Admin: 10/10/17 01:14 Dose: 5 mg General: alert HEENT: NC/AT, PERRLA Neck: Supple Lungs: CTAB Abdomen: soft, non-tender Extremities: excoriation Neurological: alert, bedbound Internal Medicine Assmt/Plan - Assessment Assessment: - Assessment Assessment: bilateral lower ext cellulitis htn esrd dm2 vomiting - Plan Plan: dc planning in am if stable. continue with hd continue ivabx follow up labs in am continue current plan of care - Plan Plan: looking for HD center in [place] per eamon deluca rn Nutritional Asmnt/Malnutr-PDOC - Dietary Evaluation Malnutrition Findings (Please click <Entered> for more info): Nutritional Asmnt/Malnutrition Start: 10/06/17 17: 58 Text: Status: Complete Freq: Document 10/06/17 17:58 [facility] (Rec: 10/06/17 18:15 [email or web address] Nutritional Asmnt/Malnutrition Patient General Information Nutritional Screening High Risk Diagnosis bilateral lower extremities cellulitis Pertinent Medical Hx/Surgical Hx HTN, DM, CAD, dyslipidemia, ESRD, CABG Subjective Information Pt seen lying in bed at time of visit, awake and alert. Pt reported appetite OK, ate about 50% of lunch today. She likes hot cereal, fruits and veggies, tea instead of coffee , eats few meat. per notes, Pt receives dialysis MWF. Current Diet Order/ Nutrition Support renal Pertinent Medications colace, novolog, levemir, piperacillin Pertinent Labs 10/05 Na 132, K 3.9, Cl 94, BUN 17, Cr 3.0, Glucose 230, A1c 8.6 10/06 POC 116-202 Nutritional Hx/Data Height 1.57 m Height (Calculated Centimeters) 157.5 Current Weight (lbs) 74.843 kg Weight (Calculated Kilograms) 74.8 Weight (Calculated Grams) 69058.7 [place] Body Weight 110 % [place] Body Weight 150 Body Mass Index (BMI) 30.2 Weight Status Obese GI Symptoms GI Symptoms None Last BM no record Difficult in: None Skin Integrity/Comment: bilateral lower extremities cellulitis/redness, toes red Estimated Nutritional Goals BEE in Kcals: Adj wt of IBW Calories/Kcals/Kg 30-35 Kcals Calculated 7182-6495 Protein: Adj wt of IBW Protein g/k.2-1.4 pt on dialysis Protein Calculated 67-78 Fluid: ml 6030-0311 or per MD order Nutritional Problem 2. Problem Problem increased nutrition needs ( protein) Etiology increased protein losses Signs/Symptoms: pt on dialysis 1. Problem Problem altered nutrition related lab values Etiology hx of DM Signs/Symptoms: Glucose 230, A1c 8.6 POC 116-202 Malnutrition Alert Protein-Calorie Malnutrition N/A Is there a minimum of two criteria No selected? Query Text:Check all the applicable criteria. A minimum of two criteria are recommended for diagnosis of either severe or non-severe malnutrition. Intervention/Recommendation Comments 1. Recommend CCHO-60gm Renal diet for optimal glycemic control. 2. If PO intake continue <75%, will consider Novasource Renal to increase protein intake 3. Monitor PO intake, wt, labs and skin integrity 4. F/U as high risk in 2-3 days, 10/08-10/09 Expected Outcomes/Goals Expected Outcomes/Goals 1. PO intake to meet at least 75% of nutritional needs. 2. Wt stability, skin to remain intact, labs to improve
--- NOTE | 2017-10-11 05:13 | Consultation ---
DATE OF CONSULTATION: 10/10/[address] Lowery. HISTORY AND PHYSICAL: This 71-year-old female patient came to the hospital because of discoloration of the toes. The patient was found to have bilateral peripheral vascular disease. The patient has bradycardia and hence cardiac consult is requested. PAST MEDICAL HISTORY: Angina, coronary artery disease, diabetes mellitus type 2, diabetic CKD stage V, end-stage renal disease on dialysis, hypertension, iron deficiency anemia, diabetic peripheral vascular disease, and hypertension. FAMILY HISTORY: Unremarkable. SOCIAL HISTORY: No history of smoking, alcohol abuse. ALLERGIES: No known allergies. PHYSICAL EXAMINATION: VITAL SIGNS: Blood pressure 130/80, pulse 46, and respirations 28. HEAD: Normocephalic. No lumps or bumps. EYES: Pupils equal, reactive to light. Fundi show AV nicking, sclerae white, conjunctivae pink. NECK: Carotid 2+. Normal upstroke. JVD flat. Thyroid not palpable. Lymph nodes not palpable. CHEST: Shows increased AP diameter. No kyphosis, scoliosis. LUNGS: Bilateral bronchovesicular breath sounds. HEART: PMI fifth intercostal space with lateral to midclavicular line. S1, S2. No S3, S4. Soft systolic murmur. ABDOMEN: Soft. Liver, spleen not palpable. No organomegaly. Bowel sounds active. NEUROLOGIC: Unremarkable. EXTREMITIES: Peripheral pulses difficult to palpate, bilateral discoloration of the toes. CLINICAL IMPRESSION: 1. 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 2. Angina. 3. Diabetes mellitus type 2. 4. Diabetic chronic kidney disease stage V. 5. End-stage renal disease, on dialysis. 6. Hypertension. 7. Iron deficiency anemia. 8. Osteoporosis. PLAN: The patient to continue anticoagulation. We will stop amiodarone in view of sinus bradycardia. Continue dialysis with ultrafiltration. JOB# [id number]
[2017-10-11 06:26] LABS: % BASOPHILS 1.9 % (0.0-2.0); % EOSINOPHILS 5.7 % (0.0-5.0); % LYMPHOCYTES 17.8 % (20.0-50.0); % MONOCYTES 14.4 % (2.0-10.0); % NEUTROPHILS 60.2 % (40.0-80.0); BASOPHILE ABSOLUTE 0.1 Th/cumm (0-0.2); EOSINOPHILE ABSOLUTE 0.3 Th/cmm (0.1-0.4); HEMATOCRIT 30.5 % (41.0-60); HEMOGLOBIN 10.4 gm/dL (12-16); LYMPHOCYTE ABSOLUTE 0.8 Th/cmm (1.5-3.0); MEAN CORPUSCULAR HEMOGLOBIN 36.1 pg (27.0-31.0); MEAN PLATELET VOLUME 6.6 fl; MONOCYTE ABSOLUTE 0.6 Th/cmm (0.3-1.0); NEUTROPHILE ABSOLUTE 2.7 Th/cmm (1.8-8.0); PLATELET COUNT 272 Th/cmm (150-400); RED BLOOD COUNT 2.87 Mil/cmm (3.80-5.20); RED CELL DISTRIBUTION WIDTH 14.4 % (11.5-20.0); WHITE BLOOD COUNT 4.5 Th/cmm (4.8-10.8)
[2017-10-11 06:30] LABS: MEAN CELL VOLUME 106.1 fl (81-100)
[2017-10-11 06:40] LABS: BUN - UREA NITROGEN 28 mg/dL (7-25); CARBON DIOXIDE 29.3 mEq/L (21.0-31.0); CHLORIDE 94 mEq/L (98-107); GLUCOSE 111 mg/dL (70-105); POTASSIUM SERUM 3.3 mEq/L (3.5-5.1); SODIUM SERUM 133 mEq/L (136-145)
[2017-10-11 06:43] LABS: CREATININE - SERUM 5.3 mg/dL (0.6-1.2)
[2017-10-11] MEDS: INSULIN ASPART SLIDING SCALE 100 UNITS/ML UNIT SUBQ SCH ×3 (06:57→16:25)
[2017-10-11] MEDS: Lactobacillus Rhamnosus GG 15 Billion CFU CAP.SPRINK PO SCH (08:54)
[2017-10-11] MEDS: Insulin Detemir 100 units/mL 10mL Vial SUBQ SCH (08:55)
[2017-10-11] MEDS: Hydrocodone/APAP 5mg/325mg Tab PO PRN (09:40)
--- NOTE | 2017-10-11 12:11 | General Progress Note ---
Subjective - Review of Systems Service Date: 10/11/17 Events since last encounter: CTA shows no significant stenosis of both legs requiring vascular intervention Pletal and ASA recommended retirement Objective - Results Result Diagrams: 10/11/17 06:18 10/11/17 06:18 Recent Labs: Laboratory Last Values WBC 4.5 Th/cmm (4.8-10.8) L 10/11/17 06:18 RBC 2.87 Mil/cmm (3.80-5.20) L 10/11/17 06:18 Hgb 10.4 gm/dL (12-16) L 10/11/17 06:18 Hct 30.5 % (41.0-60) L 10/11/17 06:18 MCV 106.1 fl (81-100) H 10/11/17 06:18 MCH 36.1 pg (27.0-31.0) H 10/11/17 06:18 MCHC Differential 34.0 pg (28.0-36.0) 10/11/17 06:18 RDW 14.4 % (11.5-20.0) 10/11/17 06:18 Plt Count 272 Th/cmm (150-400) 10/11/17 06:18 MPV 6.6 fl 10/11/17 06:18 Neutrophils % 60.2 % (40.0-80.0) 10/11/17 06:18 Band Neutrophils % 14 % (0-10) H 10/06/17 05:39 Lymphocytes % 17.8 % (20.0-50.0) L 10/11/17 06:18 Monocytes % 14.4 % (2.0-10.0) H 10/11/17 06:18 Eosinophils % 5.7 % (0.0-5.0) H 10/11/17 06:18 Basophils % 1.9 % (0.0-2.0) 10/11/17 06:18 Neutrophils (Manual) 60 % (40-80) 10/06/17 05:39 Lymphocytes 17 % (20-50) L 10/06/17 05:39 Monocytes 8 % (2-10) 10/06/17 05:39 Eosinophils 1 % (0-5) 10/06/17 05:39 Platelet Estimate ADEQUATE (NORMAL) 10/06/17 05:39 Macrocytosis 1+ 10/06/17 05:39 ESR 49 mm/hr (0-30) H 10/06/17 05:39 PT 9.6 SECONDS (9.5-11.5) 10/05/17 20:20 INR 0.92 (0.5-1.4) 10/05/17 20:20 PTT (Actin FS) 22.5 SECONDS (26.0-38.0) L 10/05/17 20:20 Sodium 133 mEq/L (136-145) L 10/11/17 06:18 Potassium 3.3 mEq/L (3.5-5.1) L 10/11/17 06:18 Chloride 94 mEq/L (98-107) L 10/11/17 06:18 Carbon Dioxide 29.3 mEq/L (21.0-31.0) 10/11/17 06:18 Anion Gap 13.0 (7.0-16.0) 10/11/17 06:18 BUN 28 mg/dL (7-25) H 10/11/17 06:18 Creatinine 5.3 mg/dL (0.6-1.2) H* 10/11/17 06:18 Est GFR ( Amer) TNP 10/11/17 06:18 Est GFR (Non-Af Amer) TNP 10/11/17 06:18 BUN/Creatinine Ratio 5.3 10/11/17 06:18 Glucose 111 mg/dL (70-105) H 10/11/17 06:18 POC Glucose 102 MG/DL (70 - 105) 10/11/17 06:43 Hemoglobin A1c % 8.6 % (4.0-6.0) H 10/05/17 20:20 Whole Bld Lactic Acid 0.85 mmol/L (0.60-1.99) 10/05/17 20:20 Calcium 8.0 mg/dL (8.6-10.3) L 10/11/17 06:18 Magnesium 2.6 mg/dL (1.9-2.7) 10/07/17 05:51 Total Bilirubin 0.6 mg/dL (0.3-1.0) 10/05/17 20:20 AST 24 U/L (13-39) 10/05/17 20:20 ALT 17 U/L (7-52) 10/05/17 20:20 Alkaline Phosphatase 57 U/L (34-104) 10/05/17 20:20 Creatine Kinase 51 U/L (30-223) 10/05/17 20:20 Troponin I 0.04 ng/mL (0.01-0.05) 10/05/17 20:20 B-Natriuretic Peptide 346.0 pg/mL (5.0-100.0) H 10/11/17 06:18 Total Protein 6.8 gm/dL (6.0-8.3) 10/05/17 20:20 Albumin 3.8 gm/dL (3.7-5.3) 10/05/17 20:20 Globulin 3.0 gm/dL 10/05/17 20:20 Albumin/Globulin Ratio 1.3 (1.0-1.8) 10/05/17 20:20 TSH 3.62 uIU/ml (0.34-5.60) 10/10/17 04:56 Urine Source MIDSTREAM 10/05/17 20:20 Urine Color YELLOW 10/05/17 20:20 Urine Clarity CLEAR (CLEAR) 10/05/17 20:20 Urine pH 8.5 (4.6 - 8.0) 10/05/17 20:20 Ur Specific [place] 1.015 (1.005-1.030) 10/05/17 20:20 Urine Protein 100 mg/dL (NEGATIVE) H 10/05/17 20:20 Urine Glucose (UA) 100 mg/dL (NEGATIVE) H 10/05/17 20:20 Urine Ketones TRACE mg/dL (NEGATIVE) 10/05/17 20:20 Urine Blood TRACE (NEGATIVE) 10/05/17 20:20 Urine Nitrate NEGATIVE (NEGATIVE) 10/05/17 20:20 Urine Bilirubin NEGATIVE (NEGATIVE) 10/05/17 20:20 Urine Urobilinogen 0.2 E.U./dL (0.2 - 1.0) 10/05/17 20:20 Ur Leukocyte Esterase TRACE (NEGATIVE) H 10/05/17 20:20 Urine RBC 0-2 /hpf (0-5) 10/05/17 20:20 Urine WBC 2-5 /hpf (0-5) 10/05/17 20:20 Ur Epithelial Cells NONE SEEN /lpf (FEW) 10/05/17 20:20 Urine Bacteria NONE SEEN /hpf (NONE SEEN) 10/05/17 20:20 - Physical Exam Vitals and I&O: Vital Signs Temp 98.4 F 10/11/17 04:00 Pulse 64 10/11/17 08:54 Resp 18 10/11/17 05:00 BP 135/59 10/11/17 08:54 Pulse Ox 95 10/11/17 04:00 Intake & Output 10/10/17 10/11/17 10/11/17 18:59 06:59 18:59 Intake Total 50 250 Balance 50 250 Weight (lbs) 75.206 kg Intake: Intake, IV Amount 50 100 Piperacillin Sodium/ 50 100 Tazobact 2.25 gm In Sodium Chloride 0.9% 50 ml @ 100 mls/hr IV Q8HR [facility] Rx#:[id number] Oral 150 Other: # Voids 2 # Bowel Movements 0 Stool Characteristics Soft Formed Active Medications: Current Medications Acetaminophen (Tylenol) 650 mg PO Q4H PRN PRN Reason: Pain Or Fever above 101 Stop: 12/04/17 21:42 Last Admin: 10/07/17 17:59 Dose: 650 mg Acetaminophen/Hydrocodone Bitart ([place] 5mg/325mg) 1 tab PO Q4H PRN PRN Reason: Pain (Severe) Stop: 12/04/17 21:42 Last Admin: 10/11/17 09:40 Dose: 1 tab Albuterol Sulfate (Albuterol 2.5mg/3ml Neb Ud) 2.5 mg HHN Q2HRT PRN PRN Reason: Shortness of Breath or Wheeze Stop: 12/04/17 21:42 Aspirin (Ecotrin) 81 mg PO DAILY [facility] Stop: 12/05/17 08:59 Last Admin: 10/11/17 08:57 Dose: 81 mg Bisacodyl (Dulcolax 10 Mg Supp) 10 mg RC DAILY PRN PRN Reason: if not tolerate po Stop: 12/05/17 13:03 Bisacodyl (Dulcolax 5 Mg Ec Tab) 10 mg PO PRN PRN PRN Reason: Constipation Stop: 12/05/17 14:57 Clopidogrel Bisulfate (Plavix) 75 mg PO DAILY [facility] Stop: 12/05/17 08:59 Last Admin: 10/11/17 08:55 Dose: 75 mg Docusate Sodium (Colace) 250 mg PO BID [facility] Stop: 12/05/17 16:59 Last Admin: 10/10/17 17:13 Dose: Not Given Guaifenesin (Robitussin) 200 mg PO Q4HR PRN PRN Reason: Cough or Congestion Stop: 12/04/17 21:42 Piperacillin Sod/Tazobactam (Sod 2.25 gm/ Sodium Chloride) 50 mls @ 100 mls/hr IV Q8HR [facility] Stop: 12/05/17 04:59 Last Infusion: 10/11/17 06:58 Dose: Infused Insulin Aspart (Novolog Insulin Sliding Scale) 0 units SUBQ ACHS [facility] PRN Reason: Protocol Stop: 12/05/17 07:29 Last Admin: 10/11/17 06:57 Dose: Not Given Insulin Detemir (Levemir Insulin) 8 units SUBQ DAILY [facility] PRN Reason: Protocol Stop: 12/05/17 08:59 Last Admin: 10/11/17 08:55 Dose: 8 units Ipratropium [place] (Atrovent Neb 0.5mg/2.5ml) 0.5 mg HHN Q2HRT PRN PRN Reason: Shortness of Breath or Wheeze Stop: 12/04/17 21:42 Lactobacillus Rhamnosus (Culturelle 15b) 1 each PO DAILY [facility] Stop: 12/09/17 08:59 Last Admin: 10/11/17 08:54 Dose: 1 each Lidocaine HCl (Xylocaine 1% 20ml Vial) 0.5 ml INJ PRN PRN PRN Reason: Dialysis Stop: 10/12/17 23:59 Metoprolol Tartrate (Lopressor) 25 mg PO BID [facility] Stop: 12/05/17 08:59 Last Admin: 10/11/17 08:54 Dose: 25 mg Miscellaneous (Probiotic Screen) 1 ea MC PRN PRN PRN Reason: PROTOCOL Stop: 12/07/17 14:59 Miscellaneous (Probiotic Screen) 1 ea MC PRN PRN PRN Reason: PROTOCOL Stop: 12/08/17 12:29 Miscellaneous (Clinical Monitoring) 1 ea MC DAILY PRN PRN Reason: RENAL Stop: 12/10/17 07:58 Nitroglycerin (Nitrostat) 0.4 mg SL Q5MIN PRN PRN Reason: Chest Pain Stop: 12/04/17 21:42 Ondansetron HCl (Zofran) 4 mg IV Q8H PRN PRN Reason: Nausea / Vomiting Stop: 12/04/17 21:42 Last Admin: 10/08/17 14:59 Dose: 4 mg Zolpidem Tartrate (Ambien) 5 mg PO HS PRN PRN Reason: Insomnia Stop: 12/04/17 21:42 Last Admin: 10/11/17 00:30 Dose: 5 mg General: Alert, Mild distress HEENT: Atraumatic, PERRLA, EOMI, Mucous membr. moist/pink Neck: Supple, +2 carotid pulse wo bruit Cardiovascular: Regular rate, Normal S1, Normal S2 Lungs: Clear to auscultation Abdomen: Bowel sounds, Soft Extremities: Tender (erythema, tender , warm), Other, no Edema Neurological: Sensation intact Skin: no Rash Psych/Mental Status: Mood NL Nutritional Asmnt/Malnutr-PDOC - Dietary Evaluation Malnutrition Findings (Please click <Entered> for more info): Nutritional Asmnt/Malnutrition Start: 10/06/17 17: 58 Text: Status: Complete Freq: Document 10/06/17 17:58 [facility] (Rec: 10/06/17 18:15 [email or web address]) Nutritional Asmnt/Malnutrition Patient General Information Nutritional Screening High Risk Diagnosis bilateral lower extremities cellulitis Pertinent Medical Hx/Surgical Hx HTN, DM, CAD, dyslipidemia, ESRD, CABG Subjective Information Pt seen lying in bed at time of visit, awake and alert. Pt reported appetite OK, ate about 50% of lunch today. She likes hot cereal, fruits and veggies, tea instead of coffee , eats few meat. per notes, Pt receives dialysis MWF. Current Diet Order/ Nutrition Support renal Pertinent Medications colace, novolog, levemir, piperacillin Pertinent Labs 10/05 Na 132, K 3.9, Cl 94, BUN 17, Cr 3.0, Glucose 230, A1c 8.6 10/06 POC 116-202 Nutritional Hx/Data Height 1.57 m Height (Calculated Centimeters) 157.5 Current Weight (lbs) 74.843 kg Weight (Calculated Kilograms) 74.8 Weight (Calculated Grams) 77627.7 [place] Body Weight 110 % [place] Body Weight 150 Body Mass Index (BMI) 30.2 Weight Status Obese GI Symptoms GI Symptoms None Last BM no record Difficult in: None Skin Integrity/Comment: bilateral lower extremities cellulitis/redness, toes red Estimated Nutritional Goals BEE in Kcals: Adj wt of IBW Calories/Kcals/Kg 30-35 Kcals Calculated 0882-5983 Protein: Adj wt of IBW Protein g/k.2-1.4 pt on dialysis Protein Calculated 67-78 Fluid: ml 9131-5199 or per MD order Nutritional Problem 2. Problem Problem increased nutrition needs ( protein) Etiology increased protein losses Signs/Symptoms: pt on dialysis 1. Problem Problem altered nutrition related lab values Etiology hx of DM Signs/Symptoms: Glucose 230, A1c 8.6 POC 116-202 Malnutrition Alert Protein-Calorie Malnutrition N/A Is there a minimum of two criteria No selected? Query Text:Check all the applicable criteria. A minimum of two criteria are recommended for diagnosis of either severe or non-severe malnutrition. Intervention/Recommendation Comments 1. Recommend CCHO-60gm Renal diet for optimal glycemic control. 2. If PO intake continue <75%, will consider Novasource Renal to increase protein intake 3. Monitor PO intake, wt, labs and skin integrity 4. F/U as high risk in 2-3 days, 10/08-10/09 Expected Outcomes/Goals Expected Outcomes/Goals 1. PO intake to meet at least 75% of nutritional needs. 2. Wt stability, skin to remain intact, labs to improve
--- NOTE | 2017-10-11 13:52 | General Progress Note ---
Subjective - Review of Systems Service Date: 10/11/17 Subjective: alert, still w/ foot pain Objective - Results Result Diagrams: 10/11/17 06:18 10/11/17 06:18 Recent Labs: Laboratory Last Values WBC 4.5 Th/cmm (4.8-10.8) L 10/11/17 06:18 RBC 2.87 Mil/cmm (3.80-5.20) L 10/11/17 06:18 Hgb 10.4 gm/dL (12-16) L 10/11/17 06:18 Hct 30.5 % (41.0-60) L 10/11/17 06:18 MCV 106.1 fl (81-100) H 10/11/17 06:18 MCH 36.1 pg (27.0-31.0) H 10/11/17 06:18 MCHC Differential 34.0 pg (28.0-36.0) 10/11/17 06:18 RDW 14.4 % (11.5-20.0) 10/11/17 06:18 Plt Count 272 Th/cmm (150-400) 10/11/17 06:18 MPV 6.6 fl 10/11/17 06:18 Neutrophils % 60.2 % (40.0-80.0) 10/11/17 06:18 Band Neutrophils % 14 % (0-10) H 10/06/17 05:39 Lymphocytes % 17.8 % (20.0-50.0) L 10/11/17 06:18 Monocytes % 14.4 % (2.0-10.0) H 10/11/17 06:18 Eosinophils % 5.7 % (0.0-5.0) H 10/11/17 06:18 Basophils % 1.9 % (0.0-2.0) 10/11/17 06:18 Neutrophils (Manual) 60 % (40-80) 10/06/17 05:39 Lymphocytes 17 % (20-50) L 10/06/17 05:39 Monocytes 8 % (2-10) 10/06/17 05:39 Eosinophils 1 % (0-5) 10/06/17 05:39 Platelet Estimate ADEQUATE (NORMAL) 10/06/17 05:39 Macrocytosis 1+ 10/06/17 05:39 ESR 49 mm/hr (0-30) H 10/06/17 05:39 PT 9.6 SECONDS (9.5-11.5) 10/05/17 20:20 INR 0.92 (0.5-1.4) 10/05/17 20:20 PTT (Actin FS) 22.5 SECONDS (26.0-38.0) L 10/05/17 20:20 Sodium 133 mEq/L (136-145) L 10/11/17 06:18 Potassium 3.3 mEq/L (3.5-5.1) L 10/11/17 06:18 Chloride 94 mEq/L (98-107) L 10/11/17 06:18 Carbon Dioxide 29.3 mEq/L (21.0-31.0) 10/11/17 06:18 Anion Gap 13.0 (7.0-16.0) 10/11/17 06:18 BUN 28 mg/dL (7-25) H 10/11/17 06:18 Creatinine 5.3 mg/dL (0.6-1.2) H* 10/11/17 06:18 Est GFR ( Amer) TNP 10/11/17 06:18 Est GFR (Non-Af Amer) TNP 10/11/17 06:18 BUN/Creatinine Ratio 5.3 10/11/17 06:18 Glucose 111 mg/dL (70-105) H 10/11/17 06:18 POC Glucose 102 MG/DL (70 - 105) 10/11/17 06:43 Hemoglobin A1c % 8.6 % (4.0-6.0) H 10/05/17 20:20 Whole Bld Lactic Acid 0.85 mmol/L (0.60-1.99) 10/05/17 20:20 Calcium 8.0 mg/dL (8.6-10.3) L 10/11/17 06:18 Magnesium 2.6 mg/dL (1.9-2.7) 10/07/17 05:51 Total Bilirubin 0.6 mg/dL (0.3-1.0) 10/05/17 20:20 AST 24 U/L (13-39) 10/05/17 20:20 ALT 17 U/L (7-52) 10/05/17 20:20 Alkaline Phosphatase 57 U/L (34-104) 10/05/17 20:20 Creatine Kinase 51 U/L (30-223) 10/05/17 20:20 Troponin I 0.04 ng/mL (0.01-0.05) 10/05/17 20:20 B-Natriuretic Peptide 346.0 pg/mL (5.0-100.0) H 10/11/17 06:18 Total Protein 6.8 gm/dL (6.0-8.3) 10/05/17 20:20 Albumin 3.8 gm/dL (3.7-5.3) 10/05/17 20:20 Globulin 3.0 gm/dL 10/05/17 20:20 Albumin/Globulin Ratio 1.3 (1.0-1.8) 10/05/17 20:20 TSH 3.62 uIU/ml (0.34-5.60) 10/10/17 04:56 Urine Source MIDSTREAM 10/05/17 20:20 Urine Color YELLOW 10/05/17 20:20 Urine Clarity CLEAR (CLEAR) 10/05/17 20:20 Urine pH 8.5 (4.6 - 8.0) 10/05/17 20:20 Ur Specific [place] 1.015 (1.005-1.030) 10/05/17 20:20 Urine Protein 100 mg/dL (NEGATIVE) H 10/05/17 20:20 Urine Glucose (UA) 100 mg/dL (NEGATIVE) H 10/05/17 20:20 Urine Ketones TRACE mg/dL (NEGATIVE) 10/05/17 20:20 Urine Blood TRACE (NEGATIVE) 10/05/17 20:20 Urine Nitrate NEGATIVE (NEGATIVE) 10/05/17 20:20 Urine Bilirubin NEGATIVE (NEGATIVE) 10/05/17 20:20 Urine Urobilinogen 0.2 E.U./dL (0.2 - 1.0) 10/05/17 20:20 Ur Leukocyte Esterase TRACE (NEGATIVE) H 10/05/17 20:20 Urine RBC 0-2 /hpf (0-5) 10/05/17 20:20 Urine WBC 2-5 /hpf (0-5) 10/05/17 20:20 Ur Epithelial Cells NONE SEEN /lpf (FEW) 10/05/17 20:20 Urine Bacteria NONE SEEN /hpf (NONE SEEN) 10/05/17 20:20 - Physical Exam Vitals and I&O: Vital Signs Temp 98.4 F 10/11/17 04:00 Pulse 64 10/11/17 08:54 Resp 18 10/11/17 05:00 BP 135/59 10/11/17 08:54 Pulse Ox 95 10/11/17 04:00 Intake & Output 10/10/17 10/11/17 10/11/17 18:59 06:59 18:59 Intake Total 50 250 Balance 50 250 Weight (lbs) 75.206 kg Intake: Intake, IV Amount 50 100 Piperacillin Sodium/ 50 100 Tazobact 2.25 gm In Sodium Chloride 0.9% 50 ml @ 100 mls/hr IV Q8HR [facility] Rx#:[id number] Oral 150 Other: # Voids 2 # Bowel Movements 0 Stool Characteristics Soft Formed Active Medications: Current Medications Acetaminophen (Tylenol) 650 mg PO Q4H PRN PRN Reason: Pain Or Fever above 101 Stop: 12/04/17 21:42 Last Admin: 10/07/17 17:59 Dose: 650 mg Acetaminophen/Hydrocodone Bitart ([place] 5mg/325mg) 1 tab PO Q4H PRN PRN Reason: Pain (Severe) Stop: 12/04/17 21:42 Last Admin: 10/11/17 09:40 Dose: 1 tab Albuterol Sulfate (Albuterol 2.5mg/3ml Neb Ud) 2.5 mg HHN Q2HRT PRN PRN Reason: Shortness of Breath or Wheeze Stop: 12/04/17 21:42 Aspirin (Ecotrin) 81 mg PO DAILY [facility] Stop: 12/05/17 08:59 Last Admin: 10/11/17 08:57 Dose: 81 mg Bisacodyl (Dulcolax 10 Mg Supp) 10 mg RC DAILY PRN PRN Reason: if not tolerate po Stop: 12/05/17 13:03 Bisacodyl (Dulcolax 5 Mg Ec Tab) 10 mg PO PRN PRN PRN Reason: Constipation Stop: 12/05/17 14:57 Cilostazol (Pletal) 100 mg PO DAILY [facility] Stop: 12/11/17 08:59 Clopidogrel Bisulfate (Plavix) 75 mg PO DAILY [facility] Stop: 12/05/17 08:59 Last Admin: 10/11/17 08:55 Dose: 75 mg Docusate Sodium (Colace) 250 mg PO BID [facility] Stop: 12/05/17 16:59 Last Admin: 10/11/17 12:38 Dose: Not Given Guaifenesin (Robitussin) 200 mg PO Q4HR PRN PRN Reason: Cough or Congestion Stop: 12/04/17 21:42 Piperacillin Sod/Tazobactam (Sod 2.25 gm/ Sodium Chloride) 50 mls @ 100 mls/hr IV Q8HR [facility] Stop: 12/05/17 04:59 Last Admin: 10/11/17 13:09 Dose: 100 mls/hr Insulin Aspart (Novolog Insulin Sliding Scale) 0 units SUBQ ACHS [facility] PRN Reason: Protocol Stop: 12/05/17 07:29 Last Admin: 10/11/17 12:38 Dose: Not Given Insulin Detemir (Levemir Insulin) 8 units SUBQ DAILY [facility] PRN Reason: Protocol Stop: 12/05/17 08:59 Last Admin: 10/11/17 08:55 Dose: 8 units Ipratropium [place] (Atrovent Neb 0.5mg/2.5ml) 0.5 mg HHN Q2HRT PRN PRN Reason: Shortness of Breath or Wheeze Stop: 12/04/17 21:42 Lactobacillus Rhamnosus (Culturelle 15b) 1 each PO DAILY [facility] Stop: 12/09/17 08:59 Last Admin: 10/11/17 08:54 Dose: 1 each Lidocaine HCl (Xylocaine 1% 20ml Vial) 0.5 ml INJ PRN PRN PRN Reason: Dialysis Stop: 10/12/17 23:59 Metoprolol Tartrate (Lopressor) 25 mg PO BID [facility] Stop: 12/05/17 08:59 Last Admin: 10/11/17 08:54 Dose: 25 mg Miscellaneous (Probiotic Screen) 1 ea MC PRN PRN PRN Reason: PROTOCOL Stop: 12/07/17 14:59 Miscellaneous (Probiotic Screen) 1 ea MC PRN PRN PRN Reason: PROTOCOL Stop: 12/08/17 12:29 Miscellaneous (Clinical Monitoring) 1 ea MC DAILY PRN PRN Reason: RENAL Stop: 12/10/17 07:58 Nitroglycerin (Nitrostat) 0.4 mg SL Q5MIN PRN PRN Reason: Chest Pain Stop: 12/04/17 21:42 Ondansetron HCl (Zofran) 4 mg IV Q8H PRN PRN Reason: Nausea / Vomiting Stop: 12/04/17 21:42 Last Admin: 10/08/17 14:59 Dose: 4 mg Zolpidem Tartrate (Ambien) 5 mg PO HS PRN PRN Reason: Insomnia Stop: 12/04/17 21:42 Last Admin: 10/11/17 00:30 Dose: 5 mg General: Alert, Mild distress HEENT: Atraumatic, PERRLA, EOMI, Mucous membr. moist/pink Neck: Supple, +2 carotid pulse wo bruit Cardiovascular: Regular rate, Normal S1, Normal S2 Lungs: Clear to auscultation Abdomen: Bowel sounds, Soft Extremities: Tender (erythema, tender , warm), Other, no Edema Neurological: Sensation intact Skin: no Rash Psych/Mental Status: Mood NL Assessment/Plan - Assessment Assessment: ESRD On HD B/L Ischemic Toes w/ Cellulitis CAD S/P CABG Type 2 DM Ess Htn Dyslipidemia Severe PAD - Plan Plan: Lab - Result Diagrams 10/07/17 07:37 10/07/17 05:51 Current Medications Acetaminophen (Tylenol) 650 mg PO Q4H PRN PRN Reason: Pain Or Fever above 101 Stop: 12/04/17 21:42 Acetaminophen/Hydrocodone Bitart ([place] 5mg/325mg) 1 tab PO Q4H PRN PRN Reason: Pain (Severe) Stop: 12/04/17 21:42 Albuterol Sulfate (Albuterol 2.5mg/3ml Neb Ud) 2.5 mg HHN Q2HRT PRN PRN Reason: Shortness of Breath or Wheeze Stop: 12/04/17 21:42 Amiodarone HCl (Cordarone) 200 mg PO DAILY [facility] Stop: 12/05/17 08:59 Last Admin: 10/07/17 08:30 Dose: 200 mg Aspirin (Ecotrin) 81 mg PO DAILY [facility] Stop: 12/05/17 08:59 Last Admin: 10/07/17 08:30 Dose: 81 mg Bisacodyl (Dulcolax 10 Mg Supp) 10 mg RC DAILY PRN PRN Reason: Constipation Stop: 12/05/17 13:03 Bisacodyl (Dulcolax 5 Mg Ec Tab) 10 mg PO PRN PRN PRN Reason: Constipation Stop: 12/05/17 14:57 Clopidogrel Bisulfate (Plavix) 75 mg PO DAILY [facility] Stop: 12/05/17 08:59 Last Admin: 10/07/17 08:30 Dose: 75 mg Docusate Sodium (Colace) 250 mg PO BID [facility] Stop: 12/05/17 16:59 Last Admin: 10/07/17 08:30 Dose: 250 mg Guaifenesin (Robitussin) 200 mg PO Q4HR PRN PRN Reason: Cough or Congestion Stop: 12/04/17 21:42 Heparin Sodium (Porcine) (Heparin Sodium) 0 units HD UD [facility] Stop: 10/08/17 00:00 Last Admin: 10/07/17 08:22 Dose: Not Given Piperacillin Sod/Tazobactam (Sod 2.25 gm/ Sodium Chloride) 50 mls @ 100 mls/hr IV Q8HR [facility] Stop: 12/05/17 04:59 Last Admin: 10/07/17 12:18 Dose: 100 mls/hr Insulin Aspart (Novolog Insulin Sliding Scale) 0 units SUBQ ACHS [facility] PRN Reason: Protocol Stop: 12/05/17 07:29 Last Admin: 10/07/17 11:54 Dose: 2 units Insulin Detemir (Levemir Insulin) 8 units SUBQ DAILY [facility] PRN Reason: Protocol Stop: 12/05/17 08:59 Last Admin: 10/07/17 08:30 Dose: 8 units Ipratropium [place] (Atrovent Neb 0.5mg/2.5ml) 0.5 mg HHN Q2HRT PRN PRN Reason: Shortness of Breath or Wheeze Stop: 12/04/17 21:42 Metoprolol Tartrate (Lopressor) 25 mg PO BID [facility] Stop: 12/05/17 08:59 Last Admin: 10/07/17 08:31 Dose: 25 mg Nitroglycerin (Nitrostat) 0.4 mg SL Q5MIN PRN PRN Reason: Chest Pain Stop: 12/04/17 21:42 Ondansetron HCl (Zofran) 4 mg IV Q8H PRN PRN Reason: Nausea / Vomiting Stop: 12/04/17 21:42 Zolpidem Tartrate (Ambien) 5 mg PO HS PRN PRN Reason: Insomnia Stop: 12/04/17 21:42 Last Admin: 10/06/17 03:25 Dose: 5 mg Lab - Result Diagrams 10/11/17 06:18 10/11/17 06:18 pt. was dialyzed yesterday & tolerated it well B/L foot better still w/ discoloration, tenderness on plapation CTA extensive vascular ds possible DC to [place] replace K Nutritional Asmnt/Malnutr-PDOC - Dietary Evaluation Malnutrition Findings (Please click <Entered> for more info): Nutritional Asmnt/Malnutrition Start: 10/06/17 17: 58 Text: Status: Complete Freq: Document 10/06/17 17:58 JESENIA (Rec: 10/06/17 18:15 [email or web address] [id number]) Nutritional Asmnt/Malnutrition Patient General Information Nutritional Screening High Risk Diagnosis bilateral lower extremities cellulitis Pertinent Medical Hx/Surgical Hx HTN, DM, CAD, dyslipidemia, ESRD, CABG Subjective Information Pt seen lying in bed at time of visit, awake and alert. Pt reported appetite OK, ate about 50% of lunch today. She likes hot cereal, fruits and veggies, tea instead of coffee , eats few meat. per notes, Pt receives dialysis MWF. Current Diet Order/ Nutrition Support renal Pertinent Medications colace, novolog, levemir, piperacillin Pertinent Labs 10/05 Na 132, K 3.9, Cl 94, BUN 17, Cr 3.0, Glucose 230, A1c 8.6 10/06 POC 116-202 Nutritional Hx/Data Height 1.57 m Height (Calculated Centimeters) 157.5 Current Weight (lbs) 74.843 kg Weight (Calculated Kilograms) 74.8 Weight (Calculated Grams) 51835.7 [place] Body Weight 110 % [place] Body Weight 150 Body Mass Index (BMI) 30.2 Weight Status Obese GI Symptoms GI Symptoms None Last BM no record Difficult in: None Skin Integrity/Comment: bilateral lower extremities cellulitis/redness, toes red Estimated Nutritional Goals BEE in Kcals: Adj wt of IBW Calories/Kcals/Kg 30-35 Kcals Calculated 5892-2459 Protein: Adj wt of IBW Protein g/k.2-1.4 pt on dialysis Protein Calculated 67-78 Fluid: ml [id number] or per MD order Nutritional Problem 2. Problem Problem increased nutrition needs ( protein) Etiology increased protein losses Signs/Symptoms: pt on dialysis 1. Problem Problem altered nutrition related lab values Etiology hx of DM Signs/Symptoms: Glucose 230, A1c 8.6 POC 116-202 Malnutrition Alert Protein-Calorie Malnutrition N/A Is there a minimum of two criteria No selected? Query Text:Check all the applicable criteria. A minimum of two criteria are recommended for diagnosis of either severe or non-severe malnutrition. Intervention/Recommendation Comments 1. Recommend CCHO-60gm Renal diet for optimal glycemic control. 2. If PO intake continue <75%, will consider Novasource Renal to increase protein intake 3. Monitor PO intake, wt, labs and skin integrity 4. F/U as high risk in 2-3 days, 10/08-10/09 Expected Outcomes/Goals Expected Outcomes/Goals 1. PO intake to meet at least 75% of nutritional needs. 2. Wt stability, skin to remain intact, labs to improve
[2017-10-11] MEDS ORDERED: Potassium Chloride 20 mEq ER Tab PO ONE (13:53)
--- NOTE | 2017-10-11 15:10 | Cardiology ---
10/10/[address] Lowery. M-MODE ECHOCARDIOGRAM: Mitral valve, anterior leaflet of mitral valve shows normal excursion, EF velocity. Posterior leaflet of mitral valve shows normal excursion. Left ventricular posterior wall shows increased thickness, normal excursion. Interventricular septum shows increased thickness, normal excursion, hypertrophy of the left ventricle, ejection fraction 65%. Left atrium enlarged at 5.1 cm. Aortic root shows normal dimension, normal excursion of aortic leaflets. CONCLUSION: Hypertrophy of the left ventricle, left atrial enlargement, ejection fraction 65%. 2D echo on the same patient, long axis view shows normal sized left ventricle with hypertrophy of the left ventricle. Left atrium enlarged. Aortic root shows normal dimension, normal excursion of aortic leaflets. Short axis view of mitral valve normal. Short axis view of aortic valve normal. Apical four chamber view showed normal sized left ventricle with hypertrophy of the left ventricle. Left atrium enlarged. Right atrial enlargement. Right ventricle enlarged with hypertrophy. Ejection fraction 65%. CONCLUSION: Left ventricular hypertrophy. Right ventricular hypertrophy, left atrial enlargement, right atrial enlargement, ejection fraction 65%. Doppler study shows moderate mitral regurgitation, moderate tricuspid regurgitation, mild pulmonary regurgitation, mild mitral regurgitation. Right ventricular systolic pressure of 57 mmHg with moderate pulmonary hypertension. JOB# [id number]
--- NOTE | 2017-10-11 17:07 | Internal Medicine Prog Note ---
Internal Medicine Subjective - Subjective Service Date: 10/11/17 (dc summary [id number]) Patient is:: awake, verbal Patient Complaints of:: congestion, constipation Per staff patient has:: no adverse event, no episodes of fall, tolerating meds Internal Medicine Objective - Results Result Diagrams: 10/11/17 06:18 10/11/17 06:18 Recent Labs: Laboratory Last Values WBC 4.5 Th/cmm (4.8-10.8) L 10/11/17 06:18 RBC 2.87 Mil/cmm (3.80-5.20) L 10/11/17 06:18 Hgb 10.4 gm/dL (12-16) L 10/11/17 06:18 Hct 30.5 % (41.0-60) L 10/11/17 06:18 MCV 106.1 fl (81-100) H 10/11/17 06:18 MCH 36.1 pg (27.0-31.0) H 10/11/17 06:18 MCHC Differential 34.0 pg (28.0-36.0) 10/11/17 06:18 RDW 14.4 % (11.5-20.0) 10/11/17 06:18 Plt Count 272 Th/cmm (150-400) 10/11/17 06:18 MPV 6.6 fl 10/11/17 06:18 Neutrophils % 60.2 % (40.0-80.0) 10/11/17 06:18 Band Neutrophils % 14 % (0-10) H 10/06/17 05:39 Lymphocytes % 17.8 % (20.0-50.0) L 10/11/17 06:18 Monocytes % 14.4 % (2.0-10.0) H 10/11/17 06:18 Eosinophils % 5.7 % (0.0-5.0) H 10/11/17 06:18 Basophils % 1.9 % (0.0-2.0) 10/11/17 06:18 Neutrophils (Manual) 60 % (40-80) 10/06/17 05:39 Lymphocytes 17 % (20-50) L 10/06/17 05:39 Monocytes 8 % (2-10) 10/06/17 05:39 Eosinophils 1 % (0-5) 10/06/17 05:39 Platelet Estimate ADEQUATE (NORMAL) 10/06/17 05:39 Macrocytosis 1+ 10/06/17 05:39 ESR 49 mm/hr (0-30) H 10/06/17 05:39 PT 9.6 SECONDS (9.5-11.5) 10/05/17 20:20 INR 0.92 (0.5-1.4) 10/05/17 20:20 PTT (Actin FS) 22.5 SECONDS (26.0-38.0) L 10/05/17 20:20 Sodium 133 mEq/L (136-145) L 10/11/17 06:18 Potassium 3.3 mEq/L (3.5-5.1) L 10/11/17 06:18 Chloride 94 mEq/L (98-107) L 10/11/17 06:18 Carbon Dioxide 29.3 mEq/L (21.0-31.0) 10/11/17 06:18 Anion Gap 13.0 (7.0-16.0) 10/11/17 06:18 BUN 28 mg/dL (7-25) H 10/11/17 06:18 Creatinine 5.3 mg/dL (0.6-1.2) H* 10/11/17 06:18 Est GFR ( Amer) TNP 10/11/17 06:18 Est GFR (Non-Af Amer) TNP 10/11/17 06:18 BUN/Creatinine Ratio 5.3 10/11/17 06:18 Glucose 111 mg/dL (70-105) H 10/11/17 06:18 POC Glucose 102 MG/DL (70 - 105) 10/11/17 06:43 Hemoglobin A1c % 8.6 % (4.0-6.0) H 10/05/17 20:20 Whole Bld Lactic Acid 0.85 mmol/L (0.60-1.99) 10/05/17 20:20 Calcium 8.0 mg/dL (8.6-10.3) L 10/11/17 06:18 Magnesium 2.6 mg/dL (1.9-2.7) 10/07/17 05:51 Total Bilirubin 0.6 mg/dL (0.3-1.0) 10/05/17 20:20 AST 24 U/L (13-39) 10/05/17 20:20 ALT 17 U/L (7-52) 10/05/17 20:20 Alkaline Phosphatase 57 U/L (34-104) 10/05/17 20:20 Creatine Kinase 51 U/L (30-223) 10/05/17 20:20 Troponin I 0.04 ng/mL (0.01-0.05) 10/05/17 20:20 B-Natriuretic Peptide 346.0 pg/mL (5.0-100.0) H 10/11/17 06:18 Total Protein 6.8 gm/dL (6.0-8.3) 10/05/17 20:20 Albumin 3.8 gm/dL (3.7-5.3) 10/05/17 20:20 Globulin 3.0 gm/dL 10/05/17 20:20 Albumin/Globulin Ratio 1.3 (1.0-1.8) 10/05/17 20:20 TSH 3.62 uIU/ml (0.34-5.60) 10/10/17 04:56 Urine Source MIDSTREAM 10/05/17 20:20 Urine Color YELLOW 10/05/17 20:20 Urine Clarity CLEAR (CLEAR) 10/05/17 20:20 Urine pH 8.5 (4.6 - 8.0) 10/05/17 20:20 Ur Specific [place] 1.015 (1.005-1.030) 10/05/17 20:20 Urine Protein 100 mg/dL (NEGATIVE) H 10/05/17 20:20 Urine Glucose (UA) 100 mg/dL (NEGATIVE) H 10/05/17 20:20 Urine Ketones TRACE mg/dL (NEGATIVE) 10/05/17 20:20 Urine Blood TRACE (NEGATIVE) 10/05/17 20:20 Urine Nitrate NEGATIVE (NEGATIVE) 10/05/17 20:20 Urine Bilirubin NEGATIVE (NEGATIVE) 10/05/17 20:20 Urine Urobilinogen 0.2 E.U./dL (0.2 - 1.0) 10/05/17 20:20 Ur Leukocyte Esterase TRACE (NEGATIVE) H 10/05/17 20:20 Urine RBC 0-2 /hpf (0-5) 10/05/17 20:20 Urine WBC 2-5 /hpf (0-5) 10/05/17 20:20 Ur Epithelial Cells NONE SEEN /lpf (FEW) 10/05/17 20:20 Urine Bacteria NONE SEEN /hpf (NONE SEEN) 10/05/17 20:20 - Physical Exam Vitals and I&O: Vital Signs Temp 96.6 F 10/11/17 08:00 Pulse 52 10/11/17 16:24 Resp 18 10/11/17 14:10 BP 148/46 10/11/17 16:24 Pulse Ox 97 10/11/17 08:00 Intake & Output 10/10/17 10/11/17 10/11/17 18:59 06:59 18:59 Intake Total 50 250 Balance 50 250 Weight (lbs) 165 lb 12.8 oz Intake: Intake, IV Amount 50 100 Piperacillin Sodium/ 50 100 Tazobact 2.25 gm In Sodium Chloride 0.9% 50 ml @ 100 mls/hr IV Q8HR [facility] Rx#:[id number] Oral 150 Other: # Voids 2 # Bowel Movements 0 Stool Characteristics Soft Formed Active Medications: Current Medications Acetaminophen (Tylenol) 650 mg PO Q4H PRN PRN Reason: Pain Or Fever above 101 Stop: 12/04/17 21:42 Last Admin: 10/07/17 17:59 Dose: 650 mg Acetaminophen/Hydrocodone Bitart ([place] 5mg/325mg) 1 tab PO Q4H PRN PRN Reason: Pain (Severe) Stop: 12/04/17 21:42 Last Admin: 10/11/17 09:40 Dose: 1 tab Albuterol Sulfate (Albuterol 2.5mg/3ml Neb Ud) 2.5 mg HHN Q2HRT PRN PRN Reason: Shortness of Breath or Wheeze Stop: 12/04/17 21:42 Aspirin (Ecotrin) 81 mg PO DAILY [facility] Stop: 12/05/17 08:59 Last Admin: 10/11/17 08:57 Dose: 81 mg Bisacodyl (Dulcolax 10 Mg Supp) 10 mg RC DAILY PRN PRN Reason: if not tolerate po Stop: 12/05/17 13:03 Bisacodyl (Dulcolax 5 Mg Ec Tab) 10 mg PO PRN PRN PRN Reason: Constipation Stop: 12/05/17 14:57 Cilostazol (Pletal) 100 mg PO DAILY [facility] Stop: 03/18/18 08:59 Clopidogrel Bisulfate (Plavix) 75 mg PO DAILY [facility] Stop: 12/05/17 08:59 Last Admin: 10/11/17 08:55 Dose: 75 mg Docusate Sodium (Colace) 250 mg PO BID [facility] Stop: 12/05/17 16:59 Last Admin: 10/11/17 16:25 Dose: Not Given Guaifenesin (Robitussin) 200 mg PO Q4HR PRN PRN Reason: Cough or Congestion Stop: 12/04/17 21:42 Insulin Aspart (Novolog Insulin Sliding Scale) 0 units SUBQ ACHS [facility] PRN Reason: Protocol Stop: 12/05/17 07:29 Last Admin: 10/11/17 16:25 Dose: Not Given Insulin Detemir (Levemir Insulin) 8 units SUBQ DAILY [facility] PRN Reason: Protocol Stop: 12/05/17 08:59 Last Admin: 10/11/17 08:55 Dose: 8 units Ipratropium [place] (Atrovent Neb 0.5mg/2.5ml) 0.5 mg HHN Q2HRT PRN PRN Reason: Shortness of Breath or Wheeze Stop: 12/04/17 21:42 Lactobacillus Rhamnosus (Culturelle 15b) 1 each PO DAILY [facility] Stop: 12/09/17 08:59 Last Admin: 10/11/17 08:54 Dose: 1 each Lidocaine HCl (Xylocaine 1% 20ml Vial) 0.5 ml INJ PRN PRN PRN Reason: Dialysis Stop: 10/12/17 23:59 Metoprolol Tartrate (Lopressor) 25 mg PO BID [facility] Stop: 12/05/17 08:59 Last Admin: 10/11/17 16:24 Dose: 25 mg Miscellaneous (Probiotic Screen) 1 ea MC PRN PRN PRN Reason: PROTOCOL Stop: 12/07/17 14:59 Miscellaneous (Probiotic Screen) 1 ea MC PRN PRN PRN Reason: PROTOCOL Stop: 12/08/17 12:29 Miscellaneous (Clinical Monitoring) 1 ea MC DAILY PRN PRN Reason: RENAL Stop: 12/10/17 07:58 Nitroglycerin (Nitrostat) 0.4 mg SL Q5MIN PRN PRN Reason: Chest Pain Stop: 12/04/17 21:42 Ondansetron HCl (Zofran) 4 mg IV Q8H PRN PRN Reason: Nausea / Vomiting Stop: 12/04/17 21:42 Last Admin: 10/08/17 14:59 Dose: 4 mg Zolpidem Tartrate (Ambien) 5 mg PO HS PRN PRN Reason: Insomnia Stop: 12/04/17 21:42 Last Admin: 10/11/17 00:30 Dose: 5 mg General: alert HEENT: NC/AT, PERRLA Neck: Supple Lungs: CTAB Abdomen: soft, non-tender Extremities: excoriation Neurological: alert, bedbound Internal Medicine Assmt/Plan - Assessment Assessment: bilateral lower ext cellulitis htn esrd dm2 vomiting - Plan Plan: dc planning in am if stable. continue with hd continue ivabx follow up labs in am continue current plan of care Nutritional Asmnt/Malnutr-PDOC - Dietary Evaluation Malnutrition Findings (Please click <Entered> for more info): Nutritional Asmnt/Malnutrition Start: 10/06/17 17: 58 Text: Status: Complete Freq: Document 10/06/17 17:58 VENU (Rec: 10/06/17 18:15 [facility] Nutritional Asmnt/Malnutrition Patient General Information Nutritional Screening High Risk Diagnosis bilateral lower extremities cellulitis Pertinent Medical Hx/Surgical Hx HTN, DM, CAD, dyslipidemia, ESRD, CABG Subjective Information Pt seen lying in bed at time of visit, awake and alert. Pt reported appetite OK, ate about 50% of lunch today. She likes hot cereal, fruits and veggies, tea instead of coffee , eats few meat. per notes, Pt receives dialysis MWF. Current Diet Order/ Nutrition Support renal Pertinent Medications colace, novolog, levemir, piperacillin Pertinent Labs 10/05 Na 132, K 3.9, Cl 94, BUN 17, Cr 3.0, Glucose 230, A1c 8.6 10/06 POC 116-202 Nutritional Hx/Data Height 5 ft 2 in Height (Calculated Centimeters) 157.5 Current Weight (lbs) 165 lb Weight (Calculated Kilograms) 74.8 Weight (Calculated Grams) 41411.7 [place] Body Weight 110 % [place] Body Weight 150 Body Mass Index (BMI) 30.2 Weight Status Obese GI Symptoms GI Symptoms None Last BM no record Difficult in: None Skin Integrity/Comment: bilateral lower extremities cellulitis/redness, toes red Estimated Nutritional Goals BEE in Kcals: Adj wt of IBW Calories/Kcals/Kg 30-35 Kcals Calculated Protein: Adj wt of IBW Protein g/k.2-1.4 pt on dialysis Protein Calculated 67-78 Fluid: ml [id number] or per MD order Nutritional Problem 2. Problem Problem increased nutrition needs ( protein) Etiology increased protein losses Signs/Symptoms: pt on dialysis 1. Problem Problem altered nutrition related lab values Etiology hx of DM Signs/Symptoms: Glucose 230, A1c 8.6 POC 116-202 Malnutrition Alert Protein-Calorie Malnutrition N/A Is there a minimum of two criteria No selected? Query Text:Check all the applicable criteria. A minimum of two criteria are recommended for diagnosis of either severe or non-severe malnutrition. Intervention/Recommendation Comments 1. Recommend CCHO-60gm Renal diet for optimal glycemic control. 2. If PO intake continue <75%, will consider Novasource Renal to increase protein intake 3. Monitor PO intake, wt, labs and skin integrity 4. F/U as high risk in 2-3 days, 10/08-10/09 Expected Outcomes/Goals Expected Outcomes/Goals 1. PO intake to meet at least 75% of nutritional needs. 2. Wt stability, skin to remain intact, labs to improve
--- NOTE | 2017-10-11 23:28 | Discharge Summary ---
DATE OF DISCHARGE: 10/11/2017 DICTATED FOR: Gregory Lowery D.O. DISCHARGE DIAGNOSES: Bilateral lower extremity cellulitis, hypertension, type 2 diabetes, CAD, dyslipidemia, ESRD. HISTORY OF PRESENT ILLNESS: A 71-year-old female with a 3-day history of bilateral feet redness associated with swelling. The patient denies any fevers at home. The patient also complains of bilateral pain on her feet. For this reason, the patient was admitted. PHYSICAL EXAMINATION: GENERAL: The patient is well developed, well nourished, in no acute distress. VITAL SIGNS: Stable. HEENT: Head normocephalic, atraumatic. NECK: Supple. No mass. LUNGS: Clear bilaterally. ABDOMEN: Soft, nontender. HOSPITAL COURSE: During the hospital stay, the patient was admitted to the telemetry unit. The patient had a broadcast program director on the case as well as the patient had bilateral lower extremity venous Doppler done, it was negative for any DVTs. The patient was being following up by Orchestra Leader as well as surgical consult as well. The patient was kept on empiric IV antibiotics and guide excursion was on case as well. Due to patient's cellulitis, patient need IV antibiotics. The patient will be discharged to group home. CONDITION UPON DISCHARGE: Fair. DISPOSITION: [facility]. JOB# [id number]
== END 2017-10-11 20:00 | DRG 871 ==
LOC: ER 19:48 → TELE 21:40
PROVIDERS: ADMIT Internal Medicine; ATTEND Internal Medicine
PROC: 5A1D70Z Performance of Urinary Filtration, Intermittent, Less than 6 Hours Per Day (ICD-10-PCS; principal; 2017-10-07)
PROC: 5A1D70Z Performance of Urinary Filtration, Intermittent, Less than 6 Hours Per Day (ICD-10-PCS; 2017-10-10)
DX: A41.9 Sepsis, unspecified organism (principal); N18.6 End stage renal disease; E11.22 Type 2 diabetes mellitus with diabetic chronic kidney disease; E11.51 Type 2 diabetes mellitus with diabetic peripheral angiopathy without gangrene; E87.1 Hypo-osmolality and hyponatremia; L03.116 Cellulitis of left lower limb; I12.0 Hypertensive chronic kidney disease with stage 5 chronic kidney disease or end stage renal disease; N39.0 Urinary tract infection, site not specified; L03.115 Cellulitis of right lower limb; E11.65 Type 2 diabetes mellitus with hyperglycemia; D50.9 Iron deficiency anemia, unspecified; D64.9 Anemia, unspecified; E78.5 Hyperlipidemia, unspecified; R00.1 Bradycardia, unspecified; I25.10 Atherosclerotic heart disease of native coronary artery without angina pectoris; T46.2X5A Adverse effect of other antidysrhythmic drugs, initial encounter; I25.119 Atherosclerotic heart disease of native coronary artery with unspecified angina pectoris; M81.0 Age-related osteoporosis without current pathological fracture; Z99.2 Dependence on renal dialysis; Y92.89 Other specified places as the place of occurrence of the external cause; Z95.1 Presence of aortocoronary bypass graft; Z83.3 Family history of diabetes mellitus; Z82.49 Family history of ischemic heart disease and other diseases of the circulatory system
CPT/HCPCS: 36415-UA; 71010-TC; 76700-TC; 80048-TC; 80053-TC; 81001-TC; 82550-TC; 82948-90; 83036-90; 83605; 83735-TC; 83880-TC; 84443-TC; 84484-TC; 85007-TC; 85025-TC; 85027-TC; 85610-TC; 85652-TC; 85730-TC; 87086-90; 93005; 93925-TC; 94760; J0696; J1644; J1815; J2001; J2405; J2543; J7030; P9046; Z7610